=== PATIENT | female | born 1940 | race Caucasian/White ===

== ENCOUNTER 2017-05-18 16:53 | Emergency (ER) | payer MEDICARE, MEDICAID ==
[2017-05-18 17:06] VITALS: BP 122/87
--- NOTE | 2017-05-18 19:26 | RAD ---
Indication: RIGHT ankle pain with inversion and eversion without proceeding injury. Pain in the distal tibia with weightbearing for 2 days. Comparison: No relevant prior exams available on the [facility] PACS for comparison. Technique: AP, mortise, and lateral views RIGHT ankle. Report: Negative for fracture or malalignment. Subchondral cystic change at the head of the talus at the talonavicular articulation. Small plantar fascia origin bone spur. Nonfocal soft tissue swelling about the visualized lower leg, ankle, and foot. IMPRESSION: 1. Negative for fracture or malalignment. 2. Advanced arthropathy at the talonavicular articulation. 3. Nonspecific nonfocal soft tissue swelling.
--- NOTE | 2017-05-18 22:46 | UC ---
Lower Extremity/Ankle HPI - HPI Summary HPI Summary: 1) SEVERAL WEEKS OF RIGHT ANKLE/FOOT PAIN NO KNOWN TRAUMA. PAIN ONLY WITH INVERSION OF ANKLE. 2) HISTORY OF GOUT, GETS OCCASIONAL GOUT FLARE UP IN TOES AND WOULD LIKE TO KNOW IF THERE ARE ANY REMEDIES THAT DO NOT INVOLVE NSAIDS. - History of Current Complaint Chief Complaint: UCLowerExtremity Stated Complaint: ANKLE PAIN Time Seen by Provider: 05/18/17 18:46 Hx Obtained From: Patient Onset/Duration: Gradual Onset, Lasting Days, Still Present Severity Initially: Moderate Severity Currently: Moderate Pain Intensity: 12 Pain Scale Used: 0-10 Numeric Aggravating Factor(s): Standing, Ambulation Alleviating Factor(s): Rest, Elevation Able to Bear Weight: Yes - Risk Factors Gout Risk Factors: Age Over 40 DVT Risk Factors: Negative Septic Arthritis Risk Factor: Negative - Allergies/Home Medications Allergies/Adverse Reactions: Allergies Allergy/AdvReac Type Severity Reaction Status Date / Time Latex Allergy Rash Verified 02/15/15 17:24 Metronidazole [From Flagyl] Allergy Nausea Verified 02/15/15 17:24 Quinine Allergy Nausea Verified 02/15/15 17:24 Sulfa Antibiotics Allergy Unknown Verified 07/16/16 12:57 Reaction Details PMH/Surg Hx/FS Hx/Imm Hx Previously Healthy: Yes - Surgical History Surgical History: Yes Surgery Procedure, Year, and Place: [id number] or 1999. Cyst removed Left breast, cholecystectomy, abdominal hernia repair. T&A - Family History Known Family History: Positive: Hypertension Negative: Cardiac Disease, Diabetes - Social History Occupation: Retired Lives: With Family Alcohol Use: None Substance Use Type: None Smoking Status (MU): Never Smoked Tobacco - Immunization History Most Recent Influenza Vaccination: 2016 Most Recent Tetanus Shot: unknown Most Recent Pneumonia Vaccination: 2013 Review of Systems Constitutional: Negative Skin: Negative Eyes: Negative ENT: Negative Respiratory: Negative Cardiovascular: Negative Gastrointestinal: Negative Genitourinary: Negative Motor: Negative Neurovascular: Negative Musculoskeletal: Arthralgia, Myalgia Neurological: Negative Psychological: Negative All Other Systems Reviewed And Are Negative: Yes Physical Exam Triage Information Reviewed: Yes Appearance: Well-Appearing, No Pain Distress, Well-Nourished Vital Signs: Initial Vital Signs Temp 98 F 05/18/17 17:03 Pulse 99 05/18/17 17:03 Resp 20 05/18/17 17:03 BP 122/87 05/18/17 17:03 Pulse Ox 100 05/18/17 17:03 Vital Signs Reviewed: Yes Eye Exam: Normal ENT Exam: Normal ENT: Positive: Normal ENT inspection, Hearing grossly normal, TMs normal Dental Exam: Normal Neck exam: Normal Neck: Positive: Supple, Nontender, No Lymphadenopathy Respiratory Exam: Normal Respiratory: Positive: Chest non-tender, Lungs clear, Normal breath sounds, No respiratory distress, No accessory muscle use Cardiovascular Exam: Normal Cardiovascular: Positive: RRR, No Murmur, Pulses Normal Abdominal Exam: Normal Musculoskeletal Exam: Other - NO WARMTH OR TENDERNESS PRESENTLY TO LEFT TOES Musculoskeletal: Positive: Strength Intact, ROM Intact, No Edema, Other: - PAIN IN RIGHT LATRERAL AND MEDIAL FOOT; Neurological Exam: Normal Psychological Exam: Normal Skin Exam: Normal Lower Extremity Course/Dx - Differential Dx/Diagnosis Differential Diagnosis/HQI/PQRI: Fracture (Closed), Sprain, Strain Provider Diagnoses: RIGHT ANKLE ADVANCED ARTHROPATHY TALONAVICULAR JOINT; GOUT Discharge - Discharge Plan Condition: Stable Disposition: HOME Patient Education Materials: Osteoarthritis (ED), Gout (ED), Swollen Ankle Joint (ED) Referrals: Octavio Mckeon MD [Primary Care Provider] - Dg Villavicencio MD [Medical Doctor] -
== END 2017-05-18 20:18 | disposition home or self-care (01) ==
LOC: UCEAST 16:53
DX: M13.871 Other specified arthritis, right ankle and foot (principal); M10.9 Gout, unspecified; Z88.3 Allergy status to other anti-infective agents; Z91.040 Latex allergy status
CPT/HCPCS: 99213; G0463

== ENCOUNTER 2018-02-22 20:41 | Emergency (ER) | payer MEDICARE, MEDICAID ==
[2018-02-22 20:53] VITALS: BP 144/90
--- NOTE | 2018-02-22 21:31 | UC ---
Eye Complaint HPI - HPI Summary HPI Summary: 77 yo female with itchy eyes now left eye red no pain no visual changes had right nare bloody nose 2 days ago no bruising - History of Current Complaint Chief Complaint: UCEye Stated Complaint: EYE IRRITATION Time Seen by Provider: 02/22/18 21:17 Hx Obtained From: Patient Onset/Duration: Gradual Onset, Lasting Hours Timing: Constant Severity Initially: Mild Severity Currently: Mild Pain Intensity: 1 Pain Scale Used: 0-10 Numeric Location of Injury: Conjunctiva Alleviating Factor(s): Nothing Associated Signs And Symptoms: Positive: Negative - Allergies/Home Medications Allergies/Adverse Reactions: Allergies Allergy/AdvReac Type Severity Reaction Status Date / Time Sulfa (Sulfonamide Allergy Unknown Unknown Verified 02/22/18 20:55 Antibiotics) Reaction Details latex Allergy Rash Verified 02/22/18 20:55 metronidazole [From Flagyl] Allergy Nausea Verified 02/22/18 20:55 quinine Allergy Rash Verified 02/22/18 20:55 Home Medications: Home Medications traMADol TAB* [Ultram*] PRN 02/22/18 [History] PMH/Surg Hx/FS Hx/Imm Hx Previously Healthy: Yes - Surgical History Surgical History: Yes Surgery Procedure, Year, and Place: [id number] or 1999. Cyst removed Left breast, cholecystectomy, abdominal hernia repair. T&A, LARGE INTESTINE REMOVED - Family History Known Family History: Positive: Hypertension Negative: Cardiac Disease, Diabetes - Social History Alcohol Use: None Substance Use Type: None Smoking Status (MU): Never Smoked Tobacco - Immunization History Most Recent Influenza Vaccination: 2016 Most Recent Tetanus Shot: unknown Most Recent Pneumonia Vaccination: 2014 Review of Systems Constitutional: Negative Skin: Negative Eyes: Eye Redness ENT: Negative Respiratory: Negative Cardiovascular: Negative Gastrointestinal: Negative Genitourinary: Negative Motor: Negative Neurovascular: Negative Musculoskeletal: Negative Neurological: Negative Psychological: Negative Is Patient Immunocompromised?: No All Other Systems Reviewed And Are Negative: Yes Physical Exam Triage Information Reviewed: Yes Appearance: Well-Appearing, No Pain Distress, Well-Nourished Vital Signs: Initial Vital Signs Temp 98.2 F 02/22/18 20:47 Pulse 90 02/22/18 20:47 Resp 16 02/22/18 20:47 BP 144/90 02/22/18 20:47 Pulse Ox 99 02/22/18 20:47 Vital Signs Reviewed: Yes Eyes: Positive: Other: - 100% left subconjunctival hemorrhage eomi/perrl, fundi benign ENT: Negative: Nasal congestion, Nasal drainage, Trismus, Muffled voice, Hoarse voice Neck: Positive: Supple Respiratory: Positive: Lungs clear, Normal breath sounds, No respiratory distress, No accessory muscle use Cardiovascular: Positive: RRR, No Murmur Musculoskeletal: Positive: ROM Intact, No Edema Neurological: Positive: Alert Psychological Exam: Normal Skin Exam: Normal Eye Complaint Course/Dx - Differential Dx/Diagnosis Provider Diagnoses: left subconjunctival hemorrhage Discharge - Sign-Out/Discharge Documenting (check all that apply): Discharge/Admit/Transfer - Discharge Plan Condition: Stable Disposition: HOME Patient Education Materials: Subconjunctival Hemorrhage (ED) Referrals: Andres Bess MD [Medical Doctor] - As Soon As Possible Additional Instructions: Because you have had itchy eyes I think this is due to you rubbing them We are checking a blood count to make sure your platelet count is OK I suggest you see an eyelet row marker for re evaluation - Billing Disposition and Condition Condition: STABLE Disposition: HOME
[2018-02-23 11:09] LABS: Hematocrit 37 % (35-47); Hemoglobin 12.3 g/dl (12.0-16.0); Mean Corpuscular HGB Conc 34 g/dl (31-36); Mean Corpuscular Hemoglobin 31 pg (27-31); Mean Corpuscular Volume 91 fL (80-97); Mean Platelet Volume 8.1 um3 (7.4-10.4); Platelet Count 337 10^3/ul (150-450); Red Blood Count 4.02 10^6/ul (4.0-5.4); Red Cell Distribution Width 13 % (10.5-15); White Blood Count 12.3 10^3/ul (3.5-10.8)
[2018-02-23 11:28] LABS: ABS Basophils 0.1 10^3/ul (0-0.2); ABS Eosinophils 0.2 10^3/ul (0-0.6); ABS Lymphocytes 2.3 10^3/ul (1.0-4.8); ABS Monocytes 0.5 10^3/ul (0-0.8); ABS Neutrophils 9.2 10^3/ul (1.5-7.7); ABS Nucleated RBC 0 10^3/ul; Eosinophil % 1.9 % (0-6); Lymphocyte % 18.9 % (25-47); Nucleated Red Blood Cells % 0
--- NOTE | 2018-02-23 15:42 | UC ---
- Progress Note Progress Note: please notify patient her platelet count is normal which what I was checking her white count was minimally elevated and should be rechecked at some point with her MD ( a couple of weeks) Discharge - Sign-Out/Discharge Documenting (check all that apply): Post-Discharge Follow Up - Discharge Plan Condition: Stable Disposition: HOME Patient Education Materials: Subconjunctival Hemorrhage (ED) Referrals: Andres Bess MD [Medical Doctor] - As Soon As Possible Additional Instructions: Because you have had itchy eyes I think this is due to you rubbing them We are checking a blood count to make sure your platelet count is OK I suggest you see an computer systems support specialist for re evaluation - Billing Disposition and Condition Condition: STABLE Disposition: HOME
== END 2018-02-22 21:42 | disposition home or self-care (01) ==
LOC: UCEAST 20:41
DX: H11.32 Conjunctival hemorrhage, left eye (principal); Z88.2 Allergy status to sulfonamides; Z88.1 Allergy status to other antibiotic agents; Z91.040 Latex allergy status
CPT/HCPCS: 36415; 85025; 99212; G0463

== ENCOUNTER 2018-08-03 08:48 | Day surgery (SDC) | payer MEDICARE, MEDICAID ==
--- NOTE | 2018-07-29 22:30 | HP ---
HISTORY AND PHYSICAL: DATE OF ADMISSION: 08/03/18 ATTENDING PHYSICIAN: Dr. Bronson.* (DICTATED BY JOSEPH MENJIVAR) PROCEDURE: The patient is scheduled for surgery on 08/03/18 where she will undergo left brachiobasilic fistula first stage to be done by Dr. Bronson at [facility] for end-stage renal disease. HISTORY OF PRESENT ILLNESS: The patient was first evaluated in June 2018. She is a 77-year-old female referred by Dr. Gu for stage 4 renal insufficiency for the evaluation of an arteriovenous fistula anticipating that she will need hemodialysis in the near future. The patient's past medical history is significant for Crohn's disease. She is status post multiple surgical procedures for resection of her bowel between 1996 and 1999. She later went onto have a permanent ileostomy and this was done by Dr. Rogel at [facility], probably the last surgery being in the year 1999. Due to her Crohn's disease, the patient had multiple episodes of being ill, becoming dehydrated and this was felt to be a factor in her renal disease. It is anticipated that she will require hemodialysis within the next few months. It should be noted as a factor that she is allergic to LATEX as well as DEMEROL. She does take pain medicine on a regular basis tramadol for an arthritic joint and oxycodone, but only takes this may be twice a week due to bladder spasms and a cyst. Physical exam in June when she was evaluated here, the extremities revealed strong axillary, brachial and radial pulses. Her cephalic veins are weak, small superficial, very friable most of them. The veins in the forearm did not appear to be adequate. An ultrasound was done at that same appointment. The scan revealed the basilic vein on the right is present on the left side. The cephalic vein is absent. The basilic vein measures 4.8 mm in the upper arm and 5.2 in the distal toward the arm. The patient has excellent flow in the brachial artery. So, the recommendation is the patient will be best served with an AV fistula, but to do this it is recommended that this will need to be done in a 2-stage approach. The surgery first on 08/03/18 would be scheduled as a left brachiobasilic fistula first stage where there is a transposition of the basilic vein and then at a second stage the basilic vein and brachial artery would be joined as an AV fistula in a separate operation at a later date. This would be the optimal plan for her surgery. A [place]-Demetris graft would be the alternative, but the long-term results for the AV fistula would be best if we are able to not use the [place]-Demetris. The patient understands the concerns, the reason for doing this 2-stage approach and wishes to proceed with the surgery as planned. PAST MEDICAL HISTORY: Significant for Crohn's disease. She is status post multiple bowel resections finally with an ileostomy done back in 1999. She had multiple episodes of dehydration due to the Crohn's and multiple illnesses. She does have a bladder cyst and has bladder spasm that she takes pain medicine for. She has chronic end-stage renal disease as a result of they feel is repeat episodes of dehydration. She does have arthritis specifically in her right ankle. She did have an episode of vertigo 2 years ago, has not had a recurrence of that. She has no history of cancer, no history of hypertension, diabetes. PAST SURGICAL HISTORY: Past surgeries include bowel resections and finally ileostomy, 1996 through 1999. She is status post hernia surgery x2, 1 hernia surgery was february be in [address] Valentin here at [facility] and then a later hernia repair in 2013 in [place]. She has had her gallbladder removed, appendix. She had a left breast cyst that was found to be benign. She had tonsils and adenoids removed, tubal ligation. MEDICATIONS: Medications that she is on: 1. Both p.r.n., she takes oxycodone 5/325. She probably uses this 2 times a week for abdominal discomfort and bladder spasm. 2. She takes tramadol only p.r.n. for ankle discomfort and since using a supplement she has not required the tramadol for some period of time. 3. The supplement that she is taking is tart eddy capsules once a day as an alternate to the tramadol. ALLERGIES: She is allergic to LATEX, DEMEROL, FLAGYL, and QUININE. SOCIAL HISTORY: The patient is retried. She is a and was . She has 2 children, a daughter and a son. Her daughter lives locally. She has no history of cigarette use. She did have heavy alcohol use back in 1999, but has not used any since. REVIEW OF SYSTEMS: Negative. She has been healthy. She has not been ill recently. PHYSICAL EXAMINATION VITAL SIGNS: Today, she is 62.5 inches, she weighs 133 pounds. Her blood pressure is 132/82, pulse is 82. HEENT: Within normal limits. NECK: Supple. There is no JVD or carotid bruits. Her thyroid was felt to be normal. LUNGS: Clear throughout. HEART: Regular rhythm without a murmur heard. ABDOMEN: She has an ileostomy in place. Her abdomen is soft. She has no tenderness. EXTREMITIES: Full range of motion without limitation. She is nonfocal and neurologically intact. She has only trace edema. IMPRESSION: The patient with renal insufficiency and stage 4 renal disease, admitted this time for placement of an AV fistula for hemodialysis in the future. Due to the patient's weak veins in her upper extremities, this will be done in a 2- part surgical approach and so on 08/03/18, the patient is scheduled for left brachiobasilic fistula first stage of a 2-part stage to be done by Dr. Bronson. The patient is allergic to LATEX and is also allergic to DEMEROL. JOSEPH MENJIVAR [id number]/[facility] #: [id number] ARIEL
[~2018-08-03 08:48] MED LIST: Buffered Lidocaine 0.9% SYRIN* 5 ML/SYR SYRINGE INTRADERM ONE; Famotidine IV* 10 MG/ML 2 ML (20 mg) IV ONE
[2018-08-03] MEDS ORDERED: Famotidine IV* 10 MG/ML 2 ML (20 mg) ONE (09:12)
[2018-08-03] MEDS ORDERED: ceFAZolin 2 GM in NS PREMIX(*) 2 GM/100 ML BAG IVPB ONE (09:13)
[2018-08-03] MEDS ORDERED: Midazolam* 1 MG/ML 2 ML VIAL (2 MG) ONE (10:04)
[2018-08-03] MEDS ORDERED: fentaNYL* 50 MCG/ML 2 ML VIAL (100 MCG VIAL) ONE (10:05)
[2018-08-03] MEDS ORDERED: Propofol* 10 MG/ML 20 ML BTL IV PUSH ONE (10:10)
[2018-08-03] MEDS ORDERED: Lidocaine 2% PF * 5 ML VIAL ONE (10:10)
[2018-08-03] MEDS ORDERED: Heparin DIALYSIS ONLY(*) 1,000 UNITS/ML VIAL ONE ×2 (10:37→12:30)
[2018-08-03] MEDS ORDERED: Lidocaine 1% INJ* 10 MG/ML 30 ML SDV ONE (10:38)
[2018-08-03] MEDS ORDERED: Heparin 2 UNITS/ML IVPREMIX* 1,000 ML IV ONE (10:40)
[2018-08-03] MEDS ORDERED: Mepivacaine 2% MPF (20 MG/ML)* 20 ML MPF ONE (10:55)
[2018-08-03] MEDS ORDERED: ROPIVACAINE 5 MG/ML 30 ML BTL (0.5%) ONE (10:56)
[2018-08-03] MEDS ORDERED: Lidocaine 2% PF* 10 ML AMP ONE (11:29)
[2018-08-03] MEDS ORDERED: Propofol* 500 MG/50 ML BTL ONE (11:32)
[2018-08-03] MEDS ORDERED: Phenylephrine INJ* 10 MG/ML 1 ML VIAL (10 MG) ONE (11:55)
[2018-08-03] MEDS ORDERED: Ondansetron ODT TAB* 4 MG PO PRN (12:04)
[2018-08-03] MEDS ORDERED: Naloxone* 0.4 MG/ML 1 ML VIAL IV PRN (12:04)
[2018-08-03] MEDS ORDERED: fentaNYL* 50 MCG/ML 2 ML VIAL (100 MCG VIAL) IV PRN (12:04)
[2018-08-03] MEDS ORDERED: Acetaminophen TAB* 325 MG PO PRN (12:04)
[2018-08-03] MEDS ORDERED: Ondansetron ODT TAB* 4 MG ONE (14:00)
[2018-08-03 14:36] VITALS: BP 114/74
--- NOTE | 2018-08-04 06:07 | OP ---
DATE OF OPERATION: 08/03/18 - [facility] DATE OF : 44 SURGEON: Aubrey Bronson MD CREDIT REVIEW ANALYST: Marianne Gu NP ANESTHESIA: Axillary supraclavicular block, plus MAC. PRE-OP DIAGNOSIS: End-stage renal disease. POST-OP DIAGNOSIS: End-stage renal disease. OPERATIVE PROCEDURE: Left arm loop brachial graft with tapered [place] Propaten __ ___ 7 mm. ESTIMATED BLOOD LOSS: Less than 20 cc. DESCRIPTION OF PROCEDURE: The patient was taken to the operating room, she was placed in the supine position and she was prepped and draped in the usual sterile fashion. Proper identification of the patient and site was done. The planned surgery was to do a first stage transposition of the basilic vein provided the vein was adequate. The preoperative ultrasound showed the length of the brachial vein to be of a short distance and not ideal for a transposition. Therefore, the procedure was then planned to be a looped graft with [place] tapered. After this was done under sedation, lidocaine 1% was just infiltrated on the antecubital area and incision was made transversely which was extended down through the skin and subcutaneous tissue. Bleeders were controlled by electrocoagulation and after this was completed, a dissection was carried into the antecubital fossa. The brachial artery was identified and encircled in the Vesseloops. The junction between the interconnecting vein between the basilic and the cephalic vein was exposed; it appeared to be of adequate size over 3 mm. This was then encircled in Vesseloops, proximally and distally, and once this was completed, we then proceeded to perform a loop tunnel in the anterior aspect of the right arm introducing the tunnel from the medial side to more distal. A counterincision was made and then the venous side was then pulled from the incision distal to the incision more proximal creating a full loop around. The graft was laid easy next to the vein and the taper segment towards the artery. After this was completed, the patient received 2500 units of heparin and after this was completed, we then proceeded to cross clamp the antecubital vein and a venotomy was then performed. The [place] -Demetris was then cut in an oblique shape and after this was done, an end-to-side anastomosis was done using a 7-0 Prolene in a parachute technique and after this was completed, the Vesseloops were released and heparinized saline was administered via the graft with a [place] tree. The graft was then cross clamped. There was good flow into the vein and after this was completed, we then proceeded to perform the arterial anastomosis. A complete at the 4- mm opening of the graft was then laid easily next to the brachial artery. The artery was cross clamped proximally and distally. An arteriotomy was performed which was extended with Szymanski scissors and we then proceeded to perform the anastomosis between the graft and the artery using 7-0 Prolene in a continuous fashion and once this was completed, we then opened up the venous clamp, opened up the distal arterial cross clamping. Flow was noticed to go into the graft and then finally the arterial clamp proximally was released. There was good flow into the graft and good flow into the vein. This was interrogated with a Doppler which appeared to be working well. There was excellent radial artery signal and good capillary refill of the hand. After this was completed, the areas were checked for hemostasis, no bleeding was noted. The incision was then closed with interrupted 4-0 Vicryl suture for the subcutaneous tissue and the skin was closed with a subcuticular 5-0 Monocryl. The patient tolerated the procedure well and the patient was then taken in good condition to the recovery room. [id number]/[facility] #: [id number] ARIEL
== END 2018-08-03 15:07 | disposition home or self-care (01) ==
LOC: OR 08:48
PROVIDERS: ATTEND Surgery
DX: N18.6 End stage renal disease (principal); K50.90 Crohn's disease, unspecified, without complications; G89.18 Other acute postprocedural pain; Z90.49 Acquired absence of other specified parts of digestive tract; B02.9 Zoster without complications
CPT/HCPCS: A9270-GY; C1768; J0670; J0690; J1644; J2001; J2250; J2704; J2795; J3010

== ENCOUNTER 2019-04-13 13:50 | Observation (INO) | payer MEDICARE, MEDICAID ==
[2019-04-13] MEDS ORDERED: NS 0.9% 1000 ML** 1,000 ML IV SCH ×2 (14:45→16:15)
--- NOTE | 2019-04-13 14:56 | ED ---
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 She was seen for acute renal failure and was light headed, dizzy, her urine was dark, she had trouble with oral fluids retention and keeping up with her output. Her Lactic Acid was 2.4 upon transfer. During our evaluation she stated that she was working with her sister and did not eat or drink as much as she usually does and has been unable to retain fluid since. She denies any sore throat, previous cold, cough, CP, and new swelling in her LE. She stated that she has SOB on exertion and when her nose is congested. She also reports that her urine was dark this morning. 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 - History of Current Complaint Chief Complaint: EDGeneral Time Seen by Provider: 04/13/19 14:13 Stated Complaint: DEHYDRATION PER [facility] Hx Obtained From: Patient, Medical Records - From [facility] ED Onset/Duration: Started Weeks Ago - 1, Still Present Timing: Constant Pain Intensity: 0 Associated Signs and Symptoms: Positive: Negative - sore throat, previous cold, cough, CP, and new swelling in her LE., Dizziness, Lightheadedness, Other: - POSITIVE: her urine was dark, she had trouble with oral fluids retention and keeping up with her output, SOB on exertion, Nasal congestion, dark urine - Allergy/Home Medications Allergies/Adverse Reactions: Allergies Allergy/AdvReac Type Severity Reaction Status Date / Time latex Allergy Rash Verified 08/03/18 09:25 meperidine [From Demerol] Allergy Vomiting Verified 08/03/18 09:26 Sulfa (Sulfonamide AdvReac Mild Nausea Verified 08/03/18 09:25 Antibiotics) metronidazole [From Flagyl] AdvReac Nausea Verified 08/03/18 09:25 quinine AdvReac Nausea And Verified 08/03/18 09:25 Vomiting Home Medications: Home Medications oxyCODONE/Acetamin 5/325 MG* [Percocet 5/325 TAB*] 1 tab PO Q6H PRN 04/13/19 [ History Confirmed 04/13/19] PMH/Surg Hx/FS Hx/Imm Hx Previously Healthy: No Endocrine/Hematology History: Reports: Hx Anemia - takes iron Cardiovascular History: Denies: Hx Pacemaker/ICD Respiratory History: Denies: Other Respiratory Problems/Disorders GI History: Reports: Hx Crohn's Disease, Hx Irritable Bowel, Hx Ileostomy - iliostomy, Other GI Disorders - ileostomy on left side currently, colon resection x3 History: Reports: Hx Chronic Renal Failure, Hx Kidney Infection, Other Problems/Disorders - hx UTI's Musculoskeletal History: Reports: Hx Arthritis - bilateral hands, right ankle Sensory History: Reports: Hx Cataracts - bilateral, no surgery yet, Hx Contacts or Glasses - glasses Denies: Hx Hearing Aid Opthamlomology History: Reports: Hx Cataracts - bilateral, no surgery yet, Hx Contacts or Glasses - glasses Neurological History: Reports: Other Neuro Impairments/Disorders - hx vertigo - evaluated by dr james Psychiatric History: Denies: Hx Panic Disorder - Surgical History Surgery Procedure, Year, and Place: [id number] or 1999. Cyst removed Left breast, cholecystectomy, abdominal hernia repair. T&A, LARGE INTESTINE REMOVED Hx Anesthesia Reactions: No Infectious Disease History: No Infectious Disease History: Denies: Hx Clostridium Difficile, Hx Hepatitis, Hx Human Immunodeficiency Virus (HIV), Hx of Known/Suspected MRSA, Hx Shingles, Hx Tuberculosis, Hx Known/ Suspected VRE, Hx Known/Suspected VRSA, History Other Infectious Disease, Traveled Outside the [place] in Last 30 Days - Family History Known Family History: Positive: Hypertension Negative: Cardiac Disease, Diabetes - Social History Alcohol Use: None Alcohol Amount: hx alcoholism - reports last drink 2014 Hx Substance Use: No Substance Use Type: Reports: None Hx Tobacco Use: No Smoking Status (MU): Never Smoked Tobacco Review of Systems Positive: Other - NEGATIVE: Previous cold Positive: Other - nasal congestion. Negative: Sore Throat Negative: Chest Pain Positive: Shortness Of Breath - exertion, due to nasal congestion. Negative: Cough Positive: other - POSITIVE: dark urine, she had trouble with oral fluids retention and keeping up with her output Musculoskeletal: Negative - New swelling in LE Positive: Other Neurological: Other - POSITIVE: dizziness All Other Systems Reviewed And Are Negative: Yes Physical Exam - Summary Physical Exam Summary: Constitutional: Well-developed, Well-nourished, Alert. (-) Distressed Skin: Warm, Dry, extremities are non-erythematous HENT: Normocephalic; Atraumatic, nasal congestion Eyes: Conjunctiva normal Neck: Musculoskeletal ROM normal neck. (-) JVD, (-) Stridor, (-) Tracheal deviation Cardio: Rhythm regular, rate normal, Heart sounds normal; Intact distal pulses; The pedal pulses are 2+ and symmetric. Radial pulses are 2+ and symmetric. (-) Murmur Pulmonary/Chest wall: Effort normal. (-) Respiratory distress, (-) Wheezes, (-) Rales Abd: Soft, (-) tenderness, (-) Distension, (-) Guarding, (-) Rebound, Ileostomy bag in her L lower quadrant Musculoskeletal: (-) Edema, L arm fistula with a palpable pulse and a good bruit. Lymph: (-) Cervical adenopathy Neuro: Alert, Oriented x3 Psych: Mood and affect Normal Triage Information Reviewed: Yes Vital Signs On Initial Exam: Initial Vitals Temp Pulse Resp BP Pulse Ox 98.4 F 81 18 175/121 98 04/13/19 14:02 04/13/19 14:02 04/13/19 14:02 04/13/19 14:02 04/13/19 14:02 Vital Signs Reviewed: Yes Diagnostics - Vital Signs Vital Signs Temp Pulse Resp BP Pulse Ox 04/13/19 14:02 98.4 F 81 18 175/121 98 - Laboratory Result Diagrams: 04/13/19 14:49 04/13/19 14:49 Lab Statement: Any lab studies that have been ordered have been reviewed, and results considered in the medical decision making process. 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 She was seen for acute renal failure and was light headed, dizzy, her urine was dark, she had trouble with oral fluids retention and keeping up with her output. Her Lactic Acid was 2.4 upon transfer. Upon her PE the pt was found to have nasal congestion, an ileostomy bag in her left lower quadrant, she was non-tender in her abdominal region, L arm fistula with a palpable pulse and a good bruit, and her extremities were non-erythematous. She had labs conducted at [facility]'s ED and they found that her Lactic Acid was 2.4. She was also found to be dehydrated and will be admitted to [facility] per Dr. Maguire and Dr. Hampton. Pt will be admitted per Dr. Wetzel at 1430 and be under observation. Per Dr. Hampton the pt will be under observation and under rehydration therapy. If her renal condition does not improve she will be considered for dialysis tomorrow. She will be Dx with Acute renal failure, dehydration, uri, and lactic acidosis. - Diagnoses Provider Diagnoses: Acute renal failure, URI (upper respiratory infection), Lactic acidosis, Dehydration Discharge - Sign-Out/Discharge Documenting (check all that apply): Patient Departure - admitted Patient Received Moderate/Deep Sedation with Procedure: No - Discharge Plan Condition: Stable Disposition: ADMITTED TO [facility] - Billing Disposition and Condition Condition: STABLE Disposition: Admitted to [facility] - Attestation Statements Document Initiated by Sara: Yes Documenting Scribe: Ambrocio Alcantara Provider For Whom Scribe is Documenting (Include Credential): Maria Esther Turner MD Scribe Attestation: IAmbrocio, scribed for Maria Esther Royal MD on 04/13/19 at 2154. Scribe Documentation Reviewed: Yes Provider Attestation: The documentation as recorded by the Ambrocio valdes accurately reflects the service I personally performed and the decisions made by Maria Esther hardin MD Status of Scribe Document: Viewed Consult Consult: Pt will be admitted per Dr. Wetzel at 1430 and be under observation. Per Dr. Hampton the pt will be under observation and under rehydration therapy. If her renal condition does not improve she will be considered for dialysis tomorrow.
[2019-04-13 14:59] LABS: ABS Basophils 0.1 10^3/ul (0-0.2); ABS Eosinophils 0.1 10^3/ul (0-0.6); ABS Lymphocytes 1.9 10^3/ul (1.0-4.8); ABS Monocytes 0.5 10^3/ul (0-0.8); ABS Neutrophils 5.2 10^3/ul (1.5-7.7); Eosinophil % 1.9 %; Hematocrit 33 % (35-47); Hemoglobin 11.1 g/dL (12.0-16.0); Lymphocyte % 23.9 %; Mean Corpuscular HGB Conc 34 g/dL (31-36); Mean Corpuscular Hemoglobin 30 pg (27-31); Mean Corpuscular Volume 90 fL (80-97); Mean Platelet Volume 7.2 fL (7.4-10.4); Platelet Count 278 10^3/uL (150-450); Red Blood Count 3.67 10^6 /uL (3.70-4.87); Red Cell Distribution Width 14 % (10-15); White Blood Count 7.8 10^3/uL (3.5-10.8)
[2019-04-13 15:19] LABS: BUN/Creatinine Ratio 13.4 (8-20); C Reactive Protein 7.07 mg/L (<8.01); Calcium 7.7 mg/dL (8.6-10.3); EGFR African American 14.3 (>60); EGFR Non-African American 11.8 (>60); Potassium 4.2 mmol/L (3.5-5.0)
--- OUTSIDE RECORDS SUMMARY | 2019-04-13 15:19 | XMS REPORT | Continuity of Care Document ---
:1940 External Reference #:[id number] Author Name Lisa Pettit Care Team Providers Name Role Phone Octavio Mckeon MD Primary Care Physician Unavailable Payers Date Identification Numbers Payment Provider Subscriber Policy Number: [id number] [facility] [employer] Yue Chaves PayID: [id number] [address] [address] [place] [address] Policy Number: [id number] Medicaid Yue Chaves Group Name: 1 1 [address] PayID: [id number] [place] [address] Problems Active Problems Provider Date Closed fracture of distal end of radius Eliane Merino M.D. Onset: 01/14/2019 Family History Date Family Member(s) Observation Comments General No Current Problems Social History Type Date Description Comments Sex Unknown Lives With Daughter Occupation Unemployed ETOH Use Denies alcohol use Tobacco Use Start: Unknown Patient has never smoked Smoking Status Reviewed: 04/12/19 Patient has never smoked Exercise Type/Frequency Exercises sporadically Allergies, Adverse Reactions, Alerts Active Allergies Reaction Severity Comments Date Demerol 01/14/2019 Quinine 01/14/2019 Medications Active Medications SIG Qnty Indications Ordering Provider Date Magnesium 27 1 by mouth per Unknown 500(27Mg) mg day Tablets Tart Fish Advanced daily Unknown Capsules Vital Signs Date Vital Result Comment 04/12/2019 11:33am Height 62 inches 5'2" Weight 136.00 lb Heart Rate 88 /min BP Systolic 142 mmHg BP Diastolic 86 mmHg Pain Level 0 BMI (Body Mass Index) 24.9 kg/m2 03/11/2019 2:41pm Height 62 inches 5'2" Weight 133.00 lb Heart Rate 84 /min BP Systolic 156 mmHg BP Diastolic 78 mmHg Respiratory Rate 18 /min Pain Level 1 BMI (Body Mass Index) 24.3 kg/m2 02/25/2019 2:42pm Height 62 inches 5'2" Weight 133.00 lb Heart Rate 72 /min BP Systolic 110 mmHg BP Diastolic 70 mmHg Respiratory Rate 12 /min Pain Level 0 BMI (Body Mass Index) 24.3 kg/m2 02/11/2019 4:10pm Height 62.5 inches 5'2.50" Weight 134.00 lb Heart Rate 96 /min BP Systolic 134 mmHg BP Diastolic 64 mmHg Respiratory Rate 18 /min Pain Level 0 BMI (Body Mass Index) 24.1 kg/m2 01/28/2019 3:56pm Height 62.5 inches 5'2.50" Weight 133.00 lb BP Systolic 130 mmHg BP Diastolic 78 mmHg Pain Level 0 BMI (Body Mass Index) 23.9 kg/m2 01/14/2019 10:57am Height 62.5 inches 5'2.50" Weight 133.50 lb Heart Rate 98 /min BP Systolic 108 mmHg BP Diastolic 70 mmHg Respiratory Rate 18 /min Body Temperature 98.0 F Pain Level 3 BMI (Body Mass Index) 24.0 kg/m2 Results Test Date Facility Test Result H/L Range Note Xray 03/11/2019 [facility] Wrist Left 3+ VWS <pending> [address] [place] [address] [phone] Procedures Date Code Description Status 02/25/2019 66382 Short Arm Cast Application Completed 02/11/2019 91069 Short Arm Cast Application Completed 01/28/2019 32961 Short Arm Cast Application Completed 01/14/2019 73653 Short Arm Cast Application Completed 07/28/2018 52810 EKG, Interpretation Only Completed 02/16/2015 99752 ECHO Transthorasic Realtime 2D W Doppler & Color Flow Hosp Completed Encounters Type Date Location Provider Dx Diagnosis Office Visit 03/11/2019 [facility] El[facility] Merino, M25.532 Pain in left 2:[facility] M.D. wrist S52.502D Unsp fx the low end left rad, subs for clos fx w routn heal Office Visit 02/25/2019 2:15p [facility] El[facility] Merino M25.532 Pain in [facility] M.[facility] wrist S52.502D Unsp fx the low end left rad, subs for clos fx w routn heal Office Visit 02/11/2019 3:15p [facility], M25.532 Pain in [facility] M.D. wrist S52.502D Unsp fx the low end left rad, subs for clos fx w routn heal Office Visit 01/28/2019 3:30p [facility], M25.532 Pain in left [facility] M.D. wrist S52.502D Unsp fx the low end left rad, subs for clos fx w routn heal Office Visit 01/14/2019 10:15a [facility], M25.532 Pain in left [facility] M.D. wrist S52.502A Unsp fracture of the lower end of left radius, init Office Visit 02/17/2015 9:43a [facility] Gavin 555.9 Enteritis Assoc,michelle Nash M.D. Unspec Site Hospitalists 780.4 Dizziness & Giddiness 787.01 Nausea W/ Vomiting 780.79 Malaise And Fatigue Other Office 02/16/2015 [facility] Nany 386.30 Labyrinthitis Visit 10:00a Oswaldo Sanchez M.D. Unspec Office 02/16/2015 [facility] Gavin 555.9 Enteritis Unspec Visit 9:43a Assoc, Henrique Wade M.D. 787.01 Nausea W/ Vomiting 780.4 Dizziness & Giddiness 780.79 Malaise And Fatigue Other Office Visit 02/15/2015 Neurohospitalist Nany Sanchez, 780.4 Dizziness & 9:58a [facility] Jessie Giddiness 787.01 Nausea W/ Vomiting Office Visit 02/15/2015 9:42a [facility] Martha Antony 555.9 Enteritis Unspec Assoc,[facility] Hospitalists 787.01 Nausea W/ Vomiting 780.4 Dizziness & Giddiness 780.79 Malaise And Fatigue Other Plan of Treatment Future Appointment(s):04/18/2019 2:15 pm - Eliane Merino M.D. at [facility]04/12/2019 - Ulysses Dumont MDM25.532 Pain in left wristNew Xrays:Wrist Left 3+ VWS, Ordered: 04/12/19Follow up:Follow up: with Dr. Merino as scheduled in April 2019
[2019-04-13] MEDS ORDERED: Acetaminophen TAB* 325 MG PO PRN (16:10)
--- NOTE | 2019-04-13 17:26 | HP ---
CC: Dr. Gu; Dr. Mckeon * HISTORY AND PHYSICAL: DATE OF ADMISSION: 04/13/19 PRIMARY CARE PROVIDER: Dr. Mckeon. ATTENDING PHYSICIAN WHILE IN THE HOSPITAL: Dr. Liss Wetzel * (dictated by Babita Parks NP). CHIEF COMPLAINT: Lightheaded. HISTORY OF PRESENT ILLNESS: Ms. Chaves is a 78-year-old female with a past medical history significant for end-stage renal disease, history of Crohn's with ileostomy, who presented initially to [facility] with complaints of lightheaded, dizziness and feeling of dehydration. The patient reports that she traveled to [place] last week to help her sister in selling her family's home and returned on Thursday. She reports that she was very busy while in [place] and was not drinking and eating as she would normally when she was home. She reports that she has been feeling off for a couple of days and then today she was shopping in [place], had an episode of feeling lightheaded and dizziness with mild nausea, so she presented to the [facility] because she felt as though she was dehydrated. The patient also reports that she has had slightly more output in her ileostomy than normal. While at [facility], she was found to have elevated BUN and creatinine. They contacted Dr. Gu who recommended the patient be transferred to [facility] for further evaluation of her worsening renal function. On evaluation in the emergency room, the patient had a CBC and a BMP. Her renal function was noted to be BUN 15, creatinine of 3.73. Her baseline BUN is 41 and baseline creatinine has been 3.3 during 2018. Due to the mild elevation in her BUN and creatinine, we were asked to see and evaluate the patient for admission. The patient did receive IV fluids normal saline in the emergency room at [place] and then she is receiving IV fluids here in the emergency room and the patient does report that she is feeling close to her baseline that her symptoms have resolved, she is no longer dizzy, does not feel weak or lightheaded at this time. PAST MEDICAL HISTORY: Significant for: 1. End-stage renal disease with fistula placement in the left arm. 2. Crohn's. 3. History of bladder spasms. PAST SURGICAL HISTORY: 1. Multiple bowel surgeries. 2. Ileostomy. 3. Fistula. 4. Hernia repair. 5. Cholecystectomy. 6. Appendectomy. 7. Tubal ligation. HOME MEDICATIONS: Include oxycodone 5/325, she takes it 2 to 3 times a week as needed for pain. ALLERGIES: FLAGYL, QUININE, DEMEROL, LATEX causes a rash. FAMILY HISTORY: Father at the age of 78. Mother with dementia. Mother and sister both with breast cancer. SOCIAL HISTORY: The patient denies tobacco, alcohol, or illicit drug use. She lives with her daughter, Margarette . She is a full code. REVIEW OF SYSTEMS: She denies any fever or unintended weight loss. Denies any chest pain, edema, cough, hemoptysis, or shortness of breath. No nausea, vomiting, diarrhea. She denies any abdominal pain. She denies any gross hematuria, dysuria, focal weakness, or sensory loss. Denies any visual complaints, dysphagia, arthralgias, myalgias, rashes, lesions, open sores, psychosis, or anxiety. She did have complaints of dizziness, lightheadedness, and slight nausea. PHYSICAL EXAMINATION GENERAL: At this time, Ms. Chaves is a 78-year-old female. She is resting comfortably on a stretcher in the emergency room. She is in no acute distress. VITAL SIGNS: Blood pressure is 136/85, heart rate is 70, respirations are 16, O2 saturation 97%, temperature 98.4. HEENT: Head is atraumatic, normocephalic. Eyes: EOMs are intact. Sclerae anicteric and not pale. Oral mucosa appeared to be moist. NECK: Supple. LUNGS: Clear to auscultation bilaterally. No wheezes, rales, or rhonchi. CARDIAC: S1, S2. Regular rate and rhythm. No murmurs, rubs, or gallops. ABDOMEN: Soft and nontender. Her bowel sounds are present. She does have an ileostomy bag intact to her left mid abdomen. EXTREMITIES: She is able to move all 4 extremities. There is no clubbing or cyanosis. Pedal pulses are +2 bilaterally. NEUROLOGIC: She is awake, alert, oriented x3. Speech is clear. Thought process is intact. There are no gross focal deficits. SKIN: Intact. DIAGNOSTIC STUDIES/LAB DATA: WBCs are 7.8, RBCs 3.67, hemoglobin is 11.1, hematocrit is 33, platelet count is 278,000. Sodium 139, potassium 4.2, chloride 108, carbon dioxide was 21, anion gap was 10, BUN was 50, creatinine 3.73, glucose was 102, lactic acid 0.8, calcium was 7.7. She had a chest x-ray at [facility], which showed no acute cardiopulmonary disease. ASSESSMENT AND PLAN: Ms. Chaves is a 78-year-old female with a past medical history significant for end-stage renal disease and history of Crohn's with an ileostomy, who presented to the emergency room with complaints of lightheadedness and dizziness, weakness. She will be admitted under observation for: 1. Weakness/dehydration. I suspect that her weakness, lightheaded, and dizziness is related to dehydration as the patient reports that she has not been drinking and eating as her normal as she was helping sell her mother's house in [place] and recently returned home on Thursday. She denies any recent sick contacts. Denies any recent fever or chills. She does report increased output in her ileostomy and the inability to keep up with p.o. intake which she believes has caused her dehydration. The patient received 1 L of normal saline in [facility]. She received another liter in the emergency room. I will continue her on normal saline at 100 cc per hour. I will repeat a BMP and CBC in the a.m. 2. End-stage renal disease. The patient does have a fistula in her left arm. I do not feel a thrill on the fistula at this time. I would recommend that the patient have further evaluation of her fistula. This could be done as an outpatient as there is no thrill in her left forearm fistula. The patient does report she recently broke her left wrist and recently had a cast removed approximately 1 week ago. We will repeat a BMP in the a.m. to further evaluate her renal function. 3. FEN: She can have a regular diet. 4. Code status: She is a full code. 5. DVT prophylaxis: I placed her on heparin subcu q.12 hours. TIME SPENT: Time spent on this admission was approximately 60 minutes, greater than half that time was spent at the bedside reviewing events leading thus far to her hospitalization, performing physical exam, and reviewing my plan of care. I have discussed this with my attending, Dr. Liss Wetzel. BABITA PARKS, DIRECTOR OF ANNUAL GIVING [id number]/[facility] #: [id number] [facility] HOSPITALJulia
[2019-04-13] MEDS: Heparin VIAL(*) 5000 UNITS/ML VIAL (FIVE THOUSAND) SUBCUT SCH (20:29)
[2019-04-14 07:01] LABS: ABS Eosinophils 0.2 10^3/ul (0-0.6); ABS Monocytes 0.4 10^3/ul (0-0.8); ABS Neutrophils 4.2 10^3/ul (1.5-7.7); Eosinophil % 3.2 %; Hematocrit 31 % (35-47); Hemoglobin 10.7 g/dL (12.0-16.0); Lymphocyte % 29.1 %; Mean Corpuscular HGB Conc 35 g/dL (31-36); Mean Corpuscular Hemoglobin 31 pg (27-31); Mean Corpuscular Volume 89 fL (80-97); Mean Platelet Volume 7.2 fL (7.4-10.4); Platelet Count 260 10^3/uL (150-450); Red Blood Count 3.47 10^6 /uL (3.70-4.87); Red Cell Distribution Width 14 % (10-15); White Blood Count 6.8 10^3/uL (3.5-10.8)
[2019-04-14 07:18] LABS: Calcium 7.8 mg/dL (8.6-10.3); EGFR African American 16.7 (>60); EGFR Non-African American 13.8 (>60); Potassium 3.9 mmol/L (3.5-5.0)
[2019-04-14] MEDS: Heparin VIAL(*) 5000 UNITS/ML VIAL (FIVE THOUSAND) SUBCUT SCH (09:02)
[2019-04-14 10:17] LABS: Magnesium 1.4 mg/dL (1.9-2.7); Phosphorus 5.1 mg/dL (2.5-5.0)
[2019-04-14] MEDS ORDERED: Magnesium Sulf 4 GM/100 ML IV* 4,000 MG/100 ML BAG IVPB ONE (10:43)
[2019-04-14 14:41] VITALS: BP 144/65
--- NOTE | 2019-04-14 22:01 | DS ---
CC: Dr. Mckeon * DISCHARGE SUMMARY: DATE OF ADMISSION: 04/13/19 DATE OF DISCHARGE: 04/14/19 ATTENDING PHYSICIAN: Dr. Liss Wetzel * (dictated by JOSEPH Edwards). PRIMARY CARE PROVIDER: Dr. Mckeon. PRIMARY DIAGNOSIS: Dehydration. SECONDARY DIAGNOSES: 1. End-stage renal disease with fistula placement in left arm. 2. Crohn's. 3. History of bladder spasms. STUDIES WHILE IN THE HOSPITAL: Duplex of left upper extremity on 04/13/19, impression: Patent left forearm AV fistula visualized. Negative for significant elevated peak systolic velocity at the arterial or venous segments to indicate hemodynamically significant stenosis. DISCHARGE MEDICATIONS: No new medications. Continued home medications: Percocet 5/325 one tab p.o. q.6 hours p.r.n. pain. HISTORY OF PRESENT ILLNESS/HOSPITAL COURSE: Yue Chaves is a 78-year-old white female with past medical history significant for end-stage renal disease, Crohn's and bladder spasms, who presented to the emergency department on complaining of feeling lightheaded. Please see the admitting history and physical dictated by Babita Parks NP, for further information. During her time at [facility] as well as [facility], the patient received normal 2 L of fluid. After this, the patient's creatinine improved from 3.73 to 3.26, which is approximately the patient's baseline. It is determined that the patient likely had a prerenal CRIS on chronic kidney disease due to dehydration, due to poor oral intake as well as possible increased output of ileostomy. Before she left today, her phosphorus was checked and was 5.1 and her magnesium was 1.4 and her magnesium was repleted with IV magnesium sulfate. This case was discussed with Dr. Gu who is comfortable with the patient's discharge. On day of discharge, the patient feels well. She did not feel dizziness or lightheadedness at rest, nor when walking. While in the hospital today, she denies chest pain, difficulty breathing, abdominal pain, or blurred vision. Because the patient had no palpable thrill, there was concern for possible occlusion of her AV fistula; however, this is ruled out with Doppler, it is likely that the absence of palpable thrill is due to her fluid resuscitation. REVIEW OF SYSTEMS: An 11-point review of systems was completed and all pertinent positives and negatives are above in the HPI. All other systems are negative. PHYSICAL EXAMINATION: Thin elderly white female, lying in hospital bed, appearing in no acute distress. Head: Normocephalic, atraumatic. Eyes: PERRL. Sclerae anicteric. ENT: Mucous membranes moist. Neck: Supple without JVD. Lungs: Clear to auscultation throughout. Cardio: Regular rate and rhythm without murmurs, rubs, or gallops. Abdomen: Abdomen is soft, nontender, nondistended. Ileostomy in left mid abdomen. Extremities: AV fistula with bruits and pulsations, but no palpable thrill. Neuro: The patient is alert and oriented x3. No focal deficits. DISCHARGE PLAN: Diet: Renal diet recommended. Activity: Return to normal activity as tolerated. The patient is to return to the emergency department if she experiences dizziness or lightheadedness, chest pain, difficulty breathing, loss of consciousness. The patient is advised to drink approximately 8 cups of water per day or more if she notices increased output of her ileostomy. She is advised to follow up with her primary care provider in [address] Gu would like the patient to follow up shortly and advised the patient to call his office today to schedule his appointment. It is recommended the patient have followup electrolytes. CONDITION ON DISCHARGE: Stable. DISPOSITION: Home. TIME SPENT: Approximately 35 minutes was spent on this discharge, approximately half of this time was spent at bedside. JOSEPH EDWARDS [id number]/[facility] #: [id number] ARIEL
== END 2019-04-14 17:35 | disposition home or self-care (01) ==
LOC: ED 13:50 → MED 16:10
PROVIDERS: ADMIT Internal Medicine; ATTEND Internal Medicine
DX: E86.0 Dehydration (principal); N18.6 End stage renal disease; K50.90 Crohn's disease, unspecified, without complications; N28.9 Disorder of kidney and ureter, unspecified; I77.0 Arteriovenous fistula, acquired; Z95.828 Presence of other vascular implants and grafts; Z85.51 Personal history of malignant neoplasm of bladder; Z88.2 Allergy status to sulfonamides; R09.81 Nasal congestion; R06.02 Shortness of breath
CPT/HCPCS: 36415; 80048; 83605; 83735; 84100; 85025; 86140; 96372; 96374; 99284; G0378; J1644; J3475

== ENCOUNTER 2019-08-14 17:28 | Emergency (ER) | payer MEDICARE, MEDICAID ==
[2019-08-14 18:59] LABS: ABS Basophils 0.1 10^3/ul (0-0.2); ABS Eosinophils 0.2 10^3/ul (0-0.6); ABS Lymphocytes 1.7 10^3/ul (1.0-4.8); ABS Monocytes 0.5 10^3/ul (0-0.8); ABS Neutrophils 6.5 10^3/ul (1.5-7.7); Eosinophil % 1.9 %; Hematocrit 34 % (35-47); Hemoglobin 11.5 g/dL (12.0-16.0); Lymphocyte % 18.5 %; Mean Corpuscular HGB Conc 34 g/dL (31-36); Mean Corpuscular Hemoglobin 31 pg (27-31); Mean Corpuscular Volume 92 fL (80-97); Nucleated Red Blood Cells % 0.1; Platelet Count 276 10^3/uL (150-450); Red Blood Count 3.73 10^6 /uL (3.70-4.87); Red Cell Distribution Width 13 % (10-15); White Blood Count 8.9 10^3/uL (3.5-10.8)
[2019-08-14 19:18] LABS: Albumin 4.1 g/dL (3.2-5.2); Albumin/Globulin Ratio 1.3 (1-3); BUN/Creatinine Ratio 11.2 (8-20); C Reactive Protein 5.09 mg/L (<8.01); EGFR Non-African American 12.4 (>60); Globulin 3.2 g/dL (2-4); Magnesium 1.4 mg/dL (1.9-2.7); Total Bilirubin 0.3 mg/dL (0.2-1.0); Total Protein 7.3 g/dL (6.4-8.9)
[2019-08-14 19:36] LABS: Potassium 4.9 mmol/L (3.5-5.0)
--- NOTE | 2019-08-14 19:43 | ED ---
GI/ HPI - HPI Summary HPI Summary: This patient is a 78 year old F with a history of stage 4 kidney disease presenting to ED with a chief complaint of diarrhea since yesterday. Patient is worried about severe dehydration and does not want to go on dialysis. The diarrhea began yesterday after the patient had breakfast. She was fine before yesterday. She has an ostomy as she had perforating Crohns 20 years ago. Yesterday, she noted watery diarrhea in her ostomy and also had mild cramping/ gripping abdominal pain. Patient also reports nausea. She denies fevers, chills , vomiting, change in appetite, and seeing blood in the ostomy. The patient rates the pain 0/10 in severity. Symptoms aggravated by nothing. Symptoms alleviated by nothing. - History of Current Complaint Chief Complaint: EDNauseaVomitDiarrh Time Seen by Provider: 08/14/19 19:30 Stated Complaint: Diarrhea Hx Obtained From: Patient Onset/Duration: Started Days Ago - Yesterday, Still Present Severity: Mild Current Severity: Mild Pain Intensity: 0 Location of Pain: Diffuse Pain Characteristics: Cramping Associated Signs and Symptoms: Positive: Nausea, Diarrhea, Abdominal Pain. Negative: Vomiting, Blood w/Stool, Fever, Chills Aggravating Factor(s): Nothing Alleviating Factor(s): Nothing - Allergy/Home Medications Allergies/Adverse Reactions: Allergies Allergy/AdvReac Type Severity Reaction Status Date / Time latex Allergy Rash Verified 08/03/18 09:25 meperidine [From Demerol] Allergy Vomiting Verified 08/03/18 09:26 Sulfa (Sulfonamide AdvReac Mild Nausea Verified 08/03/18 09:25 Antibiotics) metronidazole [From Flagyl] AdvReac Nausea Verified 08/03/18 09:25 quinine AdvReac Nausea And Verified 08/03/18 09:25 Vomiting PMH/Surg Hx/FS Hx/Imm Hx Endocrine/Hematology History: Reports: Hx Anemia - takes iron Cardiovascular History: Denies: Hx Pacemaker/ICD Respiratory History: Denies: Other Respiratory Problems/Disorders GI History: Reports: Hx Crohn's Disease, Hx Irritable Bowel, Hx Ileostomy - iliostomy, Other GI Disorders - ileostomy on left side currently, colon resection x3 History: Reports: Hx Chronic Renal Failure, Hx Kidney Infection, Other Problems/Disorders - hx UTI's Musculoskeletal History: Reports: Hx Arthritis - bilateral hands, right ankle Sensory History: Reports: Hx Cataracts - bilateral, no surgery yet, Hx Contacts or Glasses - glasses Denies: Hx Hearing Aid Opthamlomology History: Reports: Hx Cataracts - bilateral, no surgery yet, Hx Contacts or Glasses - glasses Neurological History: Reports: Other Neuro Impairments/Disorders - hx vertigo - evaluated by dr james Psychiatric History: Denies: Hx Panic Disorder - Surgical History Surgery Procedure, Year, and Place: [id number] or 1999. Cyst removed Left breast, cholecystectomy, abdominal hernia repair. T&A, LARGE INTESTINE REMOVED Hx Anesthesia Reactions: No Infectious Disease History: No Infectious Disease History: Denies: Hx Clostridium Difficile, Hx Hepatitis, Hx Human Immunodeficiency Virus (HIV), Hx of Known/Suspected MRSA, Hx Shingles, Hx Tuberculosis, Hx Known/ Suspected VRE, Hx Known/Suspected VRSA, History Other Infectious Disease, Traveled Outside the [place] in Last 30 Days - Family History Known Family History: Positive: Hypertension Negative: Cardiac Disease, Diabetes - Social History Alcohol Use: None Alcohol Amount: hx alcoholism - reports last drink 2014 Hx Substance Use: No Substance Use Type: Reports: None Hx Tobacco Use: No Smoking Status (MU): Never Smoked Tobacco Review of Systems Negative: Fever, Chills Gastrointestinal: Negative - Blood in ostomy, change in appetite Positive: Abdominal Pain, Diarrhea - Watery diarrhea in ostomy, Nausea. Negative: Vomiting All Other Systems Reviewed And Are Negative: Yes Physical Exam - Summary Physical Exam Summary: Appearance: Well-appearing, Well-nourished, lying in bed comfortably Skin: Warm, dry, no obvious rash Eyes: sclera anicteric, no conjunctival pallor ENT: dry mucus membranes Neck: Supple, nontender Respiratory: Clear to auscultation, no signs of respiratory distress Cardiovascular: Normal S1, S2. No murmurs. Normal distal pulses in tibial and radial bilaterally. Abdomen: Soft, nontender, normal active bowel sounds present, ostomy of left hand side with parastomal hernia Musculoskeletal: Normal, Strength/ROM Intact, no swelling in legs Neurological: A&Ox3, awake and alert, mentation is normal, speech is fluent and appropriate Psychiatric: affect is normal, does not appear anxious or depressed Triage Information Reviewed: Yes Vital Signs On Initial Exam: Initial Vitals Temp Pulse Resp BP Pulse Ox 99 F 87 18 156/95 99 08/14/19 17:30 08/14/19 17:30 08/14/19 17:30 08/14/19 17:30 08/14/19 17:30 Vital Signs Reviewed: Yes Procedures - Sedation Patient Received Moderate/Deep Sedation with Procedure: No Diagnostics - Vital Signs Vital Signs Temp Pulse Resp BP Pulse Ox 08/14/19 19:29 80 154/73 97 08/14/19 17:30 99 F 87 18 156/95 99 - Laboratory Lab Results: Lab Results 08/14/19 08/14/19 08/14/19 Range/Units 18:52 18:52 18:52 WBC 8.9 (3.5-10.8) 10^3/uL RBC 3.73 (3.70-4.87) 10^6 /uL Hgb 11.5 L (12.0-16.0) g/dL Hct 34 L (35-47) % MCV 92 (80-97) fL MCH 31 (27-31) pg MCHC 34 (31-36) g/dL RDW 13 (10-15) % Plt Count 276 (150-450) 10^3/uL MPV 7.0 L (7.4-10.4) fL Neut % (Auto) 72.8 % Lymph % (Auto) 18.5 % Schley % (Auto) 6.1 % Eos % (Auto) 1.9 % Baso % (Auto) 0.7 % Absolute Neuts (auto) 6.5 (1.5-7.7) 10^3/ul Absolute Lymphs (auto) 1.7 (1.0-4.8) 10^3/ul Absolute Monos (auto) 0.5 (0-0.8) 10^3/ul Absolute Eos (auto) 0.2 (0-0.6) 10^3/ul Absolute Basos (auto) 0.1 (0-0.2) 10^3/ul Absolute Nucleated RBC 0.0 10^3/ul Nucleated RBC % 0.1 Sodium 135 (135-145) mmol/L Potassium 4.9 (3.5-5.0) mmol/L Chloride 104 (101-111) mmol/L Carbon Dioxide 23 (22-32) mmol/L Anion Gap 8 (2-11) mmol/L BUN 40 H (6-24) mg/dL Creatinine 3.58 H (0.51-0.95) mg/dL Est GFR ( Amer) 15.0 (>60) Est GFR (Non-Af Amer) 12.4 (>60) BUN/Creatinine Ratio 11.2 (8-20) Glucose 97 (70-100) mg/dL Lactic Acid 0.7 (0.5-2.0) mmol/L Calcium 8.0 L (8.6-10.3) mg/dL Magnesium 1.4 L (1.9-2.7) mg/dL Total Bilirubin 0.30 (0.2-1.0) mg/dL AST 16 (13-39) U/L ALT 14 (7-52) U/L Alkaline Phosphatase 86 (34-104) U/L C-Reactive Protein 5.09 (<8.01) mg/L Total Protein 7.3 (6.4-8.9) g/dL Albumin 4.1 (3.2-5.2) g/dL Globulin 3.2 (2-4) g/dL Albumin/Globulin Ratio 1.3 (1-3) Lipase 157 H (11.0-82.0) U/L Result Diagrams: 08/14/19 18:52 08/14/19 18:52 Lab Statement: Any lab studies that have been ordered have been reviewed, and results considered in the medical decision making process. Re-Evaluation - Re-Evaluation First Eval Re-Evaluation Time: 21:46 Comment: Discussed results with patient. Patient will be discharged home with dx of diarrhea. Patient understands and agrees with this plan. GIGU Course/Dx - Course Course Of Treatment: This patient is a 78 year old F with a history of stage 4 kidney disease presenting to ED with a chief complaint of diarrhea since yesterday. Blood work revealed Hgb 11.5, Hct 34, MPV 7.0, BUN 40, creatinine 3.58, calcium 8.0, magnesium 1.4, lipase 157. UA revealed squamous cell present , specific gravity 1.002, 1+ urine blood, 1+ leukocyte esterase, 1+ WBC, 1+ bacteria. In the ED course patient received Lomotil. C. difficile PCR stool culture presumptive negative. Discussed results with patient. Patient will be discharged home with dx of diarrhea. Patient understands and agrees with this plan. - Diagnoses Provider Diagnoses: Diarrhea Discharge ED - Sign-Out/Discharge Documenting (check all that apply): Patient Departure - Discharge - Discharge Plan Condition: Good Disposition: HOME Prescriptions: Diphenoxylat/Atrop 2.5-0.025M* [Lomotil TAB*] 1 tab PO QID PRN #12 tab MDD 4 PRN Reason: Diarrhea Patient Education Materials: Acute Diarrhea (ED) Referrals: Octavio Mckeon MD [Primary Care Provider] - 3 Days (if not improving) - Billing Disposition and Condition Condition: GOOD Disposition: Home - Attestation Statements Document Initiated by Scribe: Yes Documenting Scribe: Wilver Verdugo Provider For Whom Sara is Documenting (Include Credential): Milton Jin MD Scribe Attestation: Wilver Laureano, scribed for Milton Jin MD on 08/15/19 at 0340. Scribe Documentation Reviewed: Yes Provider Attestation: The documentation as recorded by the Wilver valdes accurately reflects the service I personally performed and the decisions made by me, Milton Jin MD Status of Scribe Document: Viewed
[2019-08-14 21:16] LABS: Urine Appearance Clear; Urine Bacteria 1+ (Absent); Urine Bilirubin Negative (Negative); Urine Blood 1+ (Negative); Urine Color Colorless; Urine Glucose Negative (Negative); Urine Ketones Negative (Negative); Urine Nitrite Negative (Negative); Urine Protein Negative (Negative); Urine Red Blood Cell Trace(0-2/hpf) (Absent); Urine Specific Gravity 1.002 (1.010-1.030); Urine Squamous Epithelial Cell Present (Absent); Urine Urobilinogen Negative (Negative); Urine White Blood Cell 1+(6-10/hpf) (Absent)
[2019-08-14] MEDS ORDERED: Diphenoxylat/Atrop 2.5-0.025M* 1 TAB PO ONE (21:45)
[2019-08-14 22:03] VITALS: BP 167/82
== END 2019-08-14 21:50 | disposition home or self-care (01) ==
LOC: ED 17:28
DX: R19.7 Diarrhea, unspecified (principal); N18.4 Chronic kidney disease, stage 4 (severe); Z99.2 Dependence on renal dialysis; K50.90 Crohn's disease, unspecified, without complications; Z79.899 Other long term (current) drug therapy
CPT/HCPCS: 36415; 80053; 81003; 81015; 83605; 83690; 83735; 85025; 86140; 87045; 87046; 87086; 87493; 87899; 99282; A9270-GY

== ENCOUNTER 2019-09-15 08:41 | Inpatient (IN) | payer MEDICARE, MEDICAID ==
--- NOTE | 2019-09-15 09:04 | ED ---
Complex/Multi-Sys Presentation - HPI Summary HPI Summary: This patient is a 78 year old F presenting to [facility] with a chief complaint of nausea, vomiting, diarrhea, and ABD pain since 1 day ago. The ABD pain is intermittent and is better at the moment. Pt notes that someone else in her building had diarrhea as well. Pt has kidney disease and Crohns disease.The patient rates the pain 9/10 in severity. Symptoms aggravated by nothing. Symptoms alleviated by nothing. Patient reports chills, dizziness. Pt denies any fever, erythema of eyes, sore throat, CP, SOB, cough, dysuria, hematuria, myalgia, edema, rash. - History Of Current Complaint Chief Complaint: EDAbdPain Time Seen by Provider: 09/15/19 08:44 Hx Obtained From: Patient Onset/Duration: Sudden Onset, Lasting Days - 1, Still Present Timing: Constant, Days - 1 Severity Currently: Mild Severity Initially: Mild Aggravating Factor(s): nothing Alleviating Factor(s): nothing Associated Signs And Symptoms: Positive: Dizziness, Nausea, Vomiting, Diarrhea, Abdominal Pain, Other - positive - chills. negative - any erythema of eyes, sore throat, dysuria, hematuria, myalgia, rash.. Negative: SOB, Cough, Chest Pain, Edema, Fever - Allergies/Home Medications Allergies/Adverse Reactions: Allergies Allergy/AdvReac Type Severity Reaction Status Date / Time latex Allergy Rash Verified 08/03/18 09:25 meperidine [From Demerol] Allergy Vomiting Verified 08/03/18 09:26 Sulfa (Sulfonamide AdvReac Mild Nausea Verified 08/03/18 09:25 Antibiotics) metronidazole [From Flagyl] AdvReac Nausea Verified 08/03/18 09:25 quinine AdvReac Nausea And Verified 08/03/18 09:25 Vomiting PMH/Surg Hx/FS Hx/Imm Hx Previously Healthy: No Endocrine/Hematology History: Reports: Hx Anemia - takes iron Cardiovascular History: Denies: Hx Pacemaker/ICD Respiratory History: Denies: Other Respiratory Problems/Disorders GI History: Reports: Hx Crohn's Disease, Hx Irritable Bowel, Hx Ileostomy - iliostomy, Other GI Disorders - ileostomy on left side currently, colon resection x3 History: Reports: Hx Chronic Renal Failure, Hx Kidney Infection, Other Problems/Disorders - hx UTI's Musculoskeletal History: Reports: Hx Arthritis - bilateral hands, right ankle Sensory History: Reports: Hx Cataracts - bilateral, no surgery yet, Hx Contacts or Glasses - glasses Denies: Hx Hearing Aid Opthamlomology History: Reports: Hx Cataracts - bilateral, no surgery yet, Hx Contacts or Glasses - glasses Neurological History: Reports: Other Neuro Impairments/Disorders - hx vertigo - evaluated by dr james Psychiatric History: Denies: Hx Panic Disorder - Surgical History Surgical History: Yes Surgery Procedure, Year, and Place: [id number] or 1999. Cyst removed Left breast, cholecystectomy, abdominal hernia repair. T&A, LARGE INTESTINE REMOVED Hx Anesthesia Reactions: No Infectious Disease History: No Infectious Disease History: Denies: Hx Clostridium Difficile, Hx Hepatitis, Hx Human Immunodeficiency Virus (HIV), Hx of Known/Suspected MRSA, Hx Shingles, Hx Tuberculosis, Hx Known/ Suspected VRE, Hx Known/Suspected VRSA, History Other Infectious Disease, Traveled Outside the [place] in Last 30 Days - Family History Known Family History: Positive: Hypertension Negative: Cardiac Disease, Diabetes - Social History Alcohol Use: None Alcohol Amount: hx alcoholism - reports last drink 2014 Hx Substance Use: No Substance Use Type: Reports: None Hx Tobacco Use: No Smoking Status (MU): Never Smoked Tobacco Review of Systems Positive: Chills. Negative: Fever Negative: Erythema Negative: Sore Throat Negative: Chest Pain Negative: Shortness Of Breath, Cough Positive: Abdominal Pain, Vomiting, Diarrhea, Nausea Negative: dysuria, hematuria Negative: Myalgia, Edema Negative: Rash Neurological: Other - positive - dizziness All Other Systems Reviewed And Are Negative: Yes Physical Exam - Summary Physical Exam Summary: Constitutional: Well-developed, Well-nourished, Alert. (-) Distressed Skin: Warm, Dry HENT: Normocephalic; Atraumatic. Dry oral mucosa Eyes: Conjunctiva normal Neck: Musculoskeletal ROM normal neck. (-) JVD, (-) Stridor, (-) Tracheal deviation Cardio: Rhythm regular, rate normal, Heart sounds normal; Intact distal pulses; The pedal pulses are 2+ and symmetric. Radial pulses are 2+ and symmetric. (-) Murmur Pulmonary/Chest wall: Effort normal. (-) Respiratory distress, (-) Wheezes, (-) Rales Abd: Soft, (-) tenderness, (-) Distension, (-) Guarding, (-) Rebound. Left side ventral hernia which is soft and easily reducible and non-tender. GIGU: Thin watery stool in colostomy bag Musculoskeletal: (-) Edema Lymph: (-) Cervical adenopathy Neuro: Alert, Oriented x3 Psych: Mood and affect Normal Triage Information Reviewed: Yes Vital Signs On Initial Exam: Initial Vitals Temp Pulse Resp BP Pulse Ox 100 F 92 18 155/98 95 09/15/19 08:45 09/15/19 08:45 09/15/19 08:45 09/15/19 08:45 09/15/19 08:45 Vital Signs Reviewed: Yes Procedures - Sedation Patient Received Moderate/Deep Sedation with Procedure: No Diagnostics - Vital Signs Vital Signs Temp Pulse Resp BP Pulse Ox 09/15/19 08:45 100 F 92 18 155/98 95 - Laboratory Result Diagrams: 09/16/19 06:34 09/21/19 07:43 Lab Statement: Any lab studies that have been ordered have been reviewed, and results considered in the medical decision making process. Complex Multi-Symp Course/Dx Course Of Treatment: This patient is a 78 year old F presenting to [facility] with a chief complaint of nausea, vomiting, diarrhea, and ABD pain since 1 day ago. The ABD pain is intermittent and is better at the moment. Pt notes that someone else in her building had diarrhea as well. Pt has kidney disease and Crohns disease.The patient rates the pain 9/10 in severity. Symptoms aggravated by nothing. Symptoms alleviated by nothing. Patient reports chills, dizziness. Pt denies any fever, erythema of eyes, sore throat, CP, SOB, cough, dysuria, hematuria, myalgia, edema, rash. Physical exam shows thin watery stool in colostomy bag, left side ventral hernia which is soft and easily reducible and non-tender, dry oral mucosa. Pt's ABD pain is crampy with no signicant tendernsnss. I do not suspect a surgical abdomen. Lab results show WBC 14.2, absolute neuts 12.5, absolute lymphs 0.9, carbon dioxide 21, BUN 47, creatinine 3.91, glucose 118, calcium 8, alkaline phosphatase 108, CRP 41.55. During ED course, pt was given fluids, Tylenol, Heparin, Percocet, and Zofran. At 1211, Dr. Wetzel agrees to admit pt. - Diagnoses Provider Diagnoses: Partial small bowel obstruction, Acute on chronic renal failure, Nausea vomiting and diarrhea - Physician Notifications Discussed Care Of Patient With: Liss Wetzel Time Discussed With Above Provider: 12:11 Instructed by Provider To: Other - Dr. Wetzel agrees to admit pt. Discharge ED - Sign-Out/Discharge Documenting (check all that apply): Patient Departure - admit - Discharge Plan Condition: Fair Disposition: ADMITTED TO [facility] - Billing Disposition and Condition Condition: FAIR Disposition: Admitted to [facility] - Attestation Statements Document Initiated by Scribe: Yes Documenting Scribe: Tu Estrella Provider For Whom Scribe is Documenting (Include Credential): Dr. Dinesh Aburto MD Scribe Attestation: Tu Laureano scribed for Dr. Dinesh Aburto MD on 09/25/19 at 1206. Scribe Documentation Reviewed: Yes Provider Attestation: The documentation as recorded by the Tu valdes accurately reflects the service I personally performed and the decisions made by me, Dr. Dinesh Aburto MD Status of Scribe Document: Viewed
[2019-09-15 09:47] LABS: ABS Lymphocytes 0.9 10^3/ul (1.0-4.8); ABS Monocytes 0.7 10^3/ul (0-0.8); ABS Neutrophils 12.5 10^3/ul (1.5-7.7); Eosinophil % 0.1 %; Hematocrit 36 % (35-47); Hemoglobin 12.1 g/dL (12.0-16.0); Lymphocyte % 6.6 %; Mean Corpuscular HGB Conc 34 g/dL (31-36); Mean Corpuscular Hemoglobin 31 pg (27-31); Mean Corpuscular Volume 90 fL (80-97); Mean Platelet Volume 7.4 fL (7.4-10.4); Platelet Count 281 10^3/uL (150-450); Red Blood Count 3.96 10^6 /uL (3.70-4.87); Red Cell Distribution Width 13 % (10-15); White Blood Count 14.2 10^3/uL (3.5-10.8)
[2019-09-15 10:02] LABS: Albumin 3.8 g/dL (3.2-5.2); Albumin/Globulin Ratio 1.1 (1-3); C Reactive Protein 41.55 mg/L (<8.01); EGFR African American 13.5 (>60); EGFR Non-African American 11.2 (>60); Globulin 3.4 g/dL (2-4); Potassium 4.2 mmol/L (3.5-5.0); Total Bilirubin 0.6 mg/dL (0.2-1.0); Total Protein 7.2 g/dL (6.4-8.9)
[2019-09-15] MEDS ORDERED: Ondansetron INJ* 2 MG/ML VIAL IV ONE (10:13)
[2019-09-15] MEDS ORDERED: NS 0.9% 1000 ML** 2,000 ML IV ONE (10:13)
[2019-09-15] MEDS ORDERED: Acetaminophen TAB* 325 MG PO PRN (12:11)
[2019-09-15] MEDS: Heparin VIAL(*) 5000 UNITS/ML VIAL (FIVE THOUSAND) SUBCUT SCH ×2 (14:28→21:05)
[2019-09-15] MEDS: NS 0.9% 1000 ML** 1,000 ML IV SCH (14:30)
--- NOTE | 2019-09-15 15:14 | HP ---
CC: Dr. Octavio Mckeon; Dr. Seo * HISTORY AND PHYSICAL: DATE OF ADMISSION: 09/15/19 PRIMARY CARE PROVIDER: Dr. Octavio Mckeon OTHER PROVIDER: Dr. Seo ATTENDING PHYSICIAN: Dr. Liss Wetzel * (dictated by JOSEPH Alejandre) CHIEF COMPLAINT: 1. Abdominal pain. 2. Nausea, vomiting, diarrhea. HISTORY OF PRESENT ILLNESS: Ms. Chaves is a 78-year-old female with a past medical history of end-stage renal disease, not on hemodialysis with fistula in place; history of Crohn's disease, status post colectomy and ileostomy, who presented to the ER today with complaints of abdominal pain, nausea, vomiting, diarrhea. The patient notes that she started to experience abdominal pain in the early afternoon yesterday. She reports that this pain was in the epigastric area, but then moved downward to the lower mid abdominal area. She had some nausea throughout this time. The pain slowly worsened around 2300. The patient started to have vomiting and diarrhea. This continued throughout the night and both symptoms had resolved by 0700 this morning. The patient was reporting continued nausea which was improved with IV Zofran. The patient reports emptying her ileostomy 4 to 5 times overnight due to diarrhea. She states she typically does not have to empty this overnight. She describes her stool as watery and brown/mishra color. There is no blood. The patient denies new medications. She has not recently been prescribed antibiotics. She feels that she may have eaten some cream cheese yesterday afternoon but her abdominal pain appears to have started prior to the consumption of this food. Yesterday evening, the patient attempted to eat some mashed potatoes and vomiting began shortly after that. Since then she has not consumed any food. She reports chills overnight but denies fevers and sweats. She denies dizziness , lightheadedness, but does note that she has occasional dizziness when she stands quickly and says that this is chronic. In the ER, the patient received a full workup including blood work revealing a leukocytosis. The patient has a mildly elevated creatinine. Her CRP is elevated to 41.55, lactic acid is negative. Lipase is within normal limits. The urinalysis is currently pending. The patient received 2 L IV fluid bolus in the ER as well as Zofran 8 mg IV. Hospitalist team was asked to evaluate the patient for admission. PAST MEDICAL HISTORY: 1. End-stage renal disease, not on hemodialysis. 2. History of Crohn's disease, status post colectomy and ileostomy. PAST SURGICAL HISTORY: 1. Colectomy. 2. Ileostomy. 3. Right arm fistula. 4. Hernia repair. 5. Cholecystectomy. 6. Appendectomy. 7. Tubal ligation. 8. Adenoidectomy/tonsillectomy. HOME MEDICATIONS: Oxycodone 5/325 p.o. daily as needed for pain. The patient reports that she uses this less than daily. DRUG ALLERGIES: LATEX, rash; MEPERIDINE, vomiting; SULFA, nausea; METRONIDAZOLE , nausea; QUININE, nausea and vomiting. FAMILY HISTORY: Father at the age of 78 from heart disease. Mother at the age of 97 and had a history of dementia and breast cancer. The patient has a sister with breast cancer who is living. Maternal grandmother, breast cancer. Paternal grandfather, heart disease, prostate cancer. No family history of CVA, diabetes mellitus. SOCIAL HISTORY: The patient denies current or former use of tobacco. She quit drinking alcohol approximately 20 years ago. She does not use any other illicit drugs. She is retired; her last job was at [employer]. She lives with her daughter. She is not . In the event that she is unable to make her own medical decisions, she has appointed her daughter, Margarette Medellin, to be her surrogate decision maker. REVIEW OF SYSTEMS: A 14-point review of systems has been performed and all the pertinent positives and negatives are in the HPI. All other systems are negative. PHYSICAL EXAMINATION GENERAL: Ms. Chaves is a well-developed, well-nourished, average weight, older white female who appears to be in no acute distress. She appears comfortable. VITAL SIGNS: Temperature 100.0 temporal, heart rate 92, respiratory rate 18, oxygen saturation 95% on room air, blood pressure 155/98. HEENT: PERRL. EOMI. Nonicteric sclerae. Hearing is grossly intact. Dry oral mucosa. There are no lesions. The pharynx is clear. Tongue is at midline. Palate elevates symmetrically. PULMONARY: Symmetrical chest expansion without use of accessory muscles. Clear to auscultation bilaterally without rhonchi, wheeze, rubs, or rales. No digital clubbing or cyanosis. CARDIOVASCULAR: Regular rate and rhythm with S1, S2 present. There are no murmurs, rubs, clicks, or gallops. There is no JVD. No peripheral edema. ABDOMEN: Multiple old surgical scars on the abdomen. There is a left lower quadrant ileostomy in place with liquid stool accumulation in bag. There is a left lower quadrant hernia noted. Bowel sounds are hypoactive. Abdomen is mildly tender to palpation throughout. Hernia is reducible. MUSCULOSKELETAL: Full range of motion without pain or deformities, 5/5 strength bilaterally in upper and lower extremities. There is a left forearm fistula in place. NEURO: The patient is awake. She is alert and oriented x3 with cranial nerves grossly intact. Muscle strength 5/5 bilaterally in the upper and lower extremities. DIAGNOSTIC STUDIES/LAB DATA: WBC 14.2, absolute neutrophils 12.5. BUN 47, creatinine 3.91, lactic acid 1.3, CRP 41.55, lipase 63. ASSESSMENT AND PLAN: Ms. Chaves is a 78-year-old female with a past medical history of end-stage renal disease, not on hemodialysis; history of Crohn's disease, status post colectomy and ileostomy, who presented to the ER today with complaints of abdominal pain, nausea, vomiting, diarrhea. The patient will be admitted to observation for: 1. Abdominal pain, nausea, vomiting, diarrhea. The patient has continued mild lower abdominal pain. She denies nausea, recent vomiting, recent diarrhea. She has received 2 L IV fluid bolus in the ER as well as Zofran 8 mg IV. She will be continued on gentle hydration at 100 cc/h. The patient is requesting food at this time. We will start with a clear liquid diet with instructions to advance diet slowly as tolerated. The patient appears to be dehydrated and therefore will receive IV fluid hydration. 2. Acute kidney injury on chronic kidney disease. The patient has mildly elevated creatinine. This is likely a result of prerenal acute kidney injury due to dehydration. The patient has received 2 L IV fluid bolus and she will continue on IV hydration. We will recheck kidney function in the a.m. 3. History of Crohn's, status post colectomy, ileostomy. Due to reported diarrhea, we will monitor the patient's ileostomy output. Otherwise supportive care. 4. DVT prophylaxis: According to the DVT Risk Assessment, the patient scores 3 placing her at high risk. She will be placed on heparin subcu. 5. Code status: Full code. TIME SPENT: Approximately 60 minutes was spent on this admission, greater than half that time was spent [id number] with the patient obtaining history, performing a physical, and reviewing the plan of care. The case has been reviewed with my attending, Dr. Wetzel, who is in agreement with the plan of care. JOSEPH LUCERO [id number]/CPS #: [id number] ARIEL
[2019-09-15 19:36] LABS: Urine Appearance Clear; Urine Bilirubin Negative (Negative); Urine Blood 1+ (Negative); Urine Color Yellow; Urine Glucose Negative (Negative); Urine Ketones Negative (Negative); Urine Nitrite Negative (Negative); Urine Protein Negative (Negative); Urine Specific Gravity 1.013 (1.010-1.030); Urine Urobilinogen Negative (Negative)
[2019-09-15 19:38] LABS: Urine Bacteria Absent (Absent); Urine Red Blood Cell Trace(0-2/hpf) (Absent); Urine Renal Epithelial Cells Present (Absent); Urine Squamous Epithelial Cell Present (Absent); Urine White Blood Cell 3+(>20/hpf) (Absent)
[2019-09-15] MEDS: oxyCODONE/Acetamin 5/325 MG* TAB PO PRN (21:04)
[2019-09-16] MEDS: NS 0.9% 1000 ML** 1,000 ML IV SCH (04:19)
[2019-09-16 06:55] LABS: ABS Eosinophils 0.1 10^3/ul (0-0.6); ABS Lymphocytes 1.5 10^3/ul (1.0-4.8); ABS Monocytes 0.6 10^3/ul (0-0.8); ABS Neutrophils 5.5 10^3/ul (1.5-7.7); Eosinophil % 1.7 %; Hematocrit 31 % (35-47); Hemoglobin 10.6 g/dL (12.0-16.0); Mean Corpuscular HGB Conc 34 g/dL (31-36); Mean Corpuscular Hemoglobin 31 pg (27-31); Mean Corpuscular Volume 91 fL (80-97); Mean Platelet Volume 7.4 fL (7.4-10.4); Platelet Count 238 10^3/uL (150-450); Red Cell Distribution Width 14 % (10-15); White Blood Count 7.7 10^3/uL (3.5-10.8)
[2019-09-16 07:13] LABS: Calcium 7.5 mg/dL (8.6-10.3); EGFR African American 12.9 (>60); EGFR Non-African American 10.6 (>60); Potassium 3.6 mmol/L (3.5-5.0)
[2019-09-16] MEDS: Heparin VIAL(*) 5000 UNITS/ML VIAL (FIVE THOUSAND) SUBCUT SCH ×3 (07:21→21:25)
--- NOTE | 2019-09-16 10:29 | PN ---
Subjective Date of Service: 09/16/19 Interval History: Ms. Chaves states that she is feeling better in terms of nausea and vomiting but continues to have abdominal pain and diarrhea. She denies chest pain, SOB. Despite her history of Crohn's with ileostomy, she does not have a frequent recent history of abdominal pain or other GI symptoms. Objective Active Medications: Acetaminophen (Tylenol Tab*) 650 mg PO Q4H PRN Heparin Sodium (Porcine) (Heparin Vial(*)) 5,000 units SUBCUT Q8HR TAINA Sodium Chloride (Ns 0.9% 1000 Ml) 1,000 mls @ 100 mls/hr IV PER RATE TAINA Ondansetron HCl (Zofran Inj*) 4 mg IV Q4H PRN Oxycodone/Acetaminophen (Percocet 5/325 Tab*) 1 tab PO Q8H PRN Vital Signs: Temp Pulse Resp BP Pulse Ox 98.2 F 74 18 110/61 96 09/16/19 07:00 09/16/19 07:00 09/16/19 07:23 09/16/19 07:00 09/16/19 07:00 Oxygen Devices in Use Now: None Appearance: Female lying in bed in NAD Eyes: No Scleral Icterus Ears/Nose/Mouth/Throat: Mucous Membranes Moist Neck: Trachea Midline Respiratory: Symmetrical Chest Expansion and Respiratory Effort, Clear to Auscultation Cardiovascular: NL Sounds; No Murmurs; No JVD, No Edema Abdominal: - - Soft, tender to palpation throughout, no rebound, BS + Extremities: No Edema Skin: No Rash or Ulcers Neurological: Alert and Oriented x 3, NL Muscle Strength and Tone Nutrition: Taking PO's Result Diagrams: 09/16/19 06:34 09/16/19 06:34 Assess/Plan/Problems-Billing Assessment: Ms. Chaves is a 78 yo F with a PMH of ESRD not on HD but with fistula in place, Crohn's with ileostomy who was admitted on 09/15/19 with abdominal pain, nausea , vomiting and acute on chronic renal failure. - Patient Problems (1) Nausea vomiting and diarrhea Comment: - Plan to image with CT abd/pelvis with PO contrast only given persistent pain - NPO until after CT - Continue zofran prn (2) Acute on chronic renal failure Comment: - Creatinine worse today, ESRD with fistula in place, not on dialysis - Nephrology consulted. Patient was a patient of Dr Gu, is planning to move to [place] next way and does not have nephrology follow up arranged - Switch from NS to LR given worsening acidosis (3) DVT prophylaxis Comment: - Heparin SQ. (4) Full code status Comment: Status and Disposition: Change to inpatient with worsening creatinine. Anticipate discharge to home when medically stable.
[2019-09-16] MEDS ORDERED: Lactated Ringers 1000 ML Bag* 1,000 ML IV ONE (12:48)
--- NOTE | 2019-09-16 15:46 | CONSULT ---
Consult Consult: Chief complaint: CRIS on CKD stage V History of present illness: Anastacio Turner is a very nice 78-year-old woman who was admitted for nausea, vomiting, abdominal pain. She was admitted yesterday for these symptoms of one day duration. Abdominal pain got worse throughout the day, until she felt so sick and dehydrated that decided to go to the emergency room. She has a history of colectomy and ileostomy due to Crohns disease and has a liquid stool that collects in the ileostomy bag. She has been emptying the bag a lot more frequently. She did not take any antibiotics recently. She was admitted to the hospital but few months ago. The symptoms started kind of abruptly and it intensified throughout the day yesterday. She states that her daughter has experienced nausea, vomiting and diarrhea and she thinks she got GI bug that circulating around. She was started on antibiotics yesterday. Still has some abdominal pain but is improved. Still feels very dry with dry mouth. She has a history of advanced chronic kidney disease and he was to be seen by Dr. Urban. She does not have a history of diabetes mellitus or hypertension. She was told that her chronic kidney disease was secondary to chronic volume depletion. Urine analysis is negative for blood and protein. She did not have a kidney biopsy done. She lives with her daughter and she was supposed to move to [place] with her son. Her departure to [place] has been delayed until next weekend. 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 She had a left upper arm AV graft placed some time ago, which is ready to be used. Baseline serum creatinine is about 3.2 mg/dL and it vito to 4.08 during this admission, despite IV fluids. No history of high blood pressure. Review of systems: Constitutional: No fevers, chills, night sweats Respiratory: no shortness of breath, hemoptysis, sputum Cardiovascular: No chest pain, palpitations, or leg swelling GI: as above in HPI : No dysuria, hematuria, frequency All systems were reviewed and they are all negative unless otherwise specified Past medical history 1. CKD stage V not on dialysis, unclear etiology. 2. History of Crohns disease status post colectomy and ileostomy. Past surgical history: 1. Colectomy 2. Ileostomy 3. Left arm AV graft 4. Hernia repair 5. Appendectomy 6. Cholecystectomy 7. Tubal ligation 8. Tonsillectomy Home medications: She takes only oxycodone 5/325 mg by mouth as needed. Current medications: Acetaminophen Heparin 5000 units subcu every 8 hours Lactated Ringers at 100 MLs per hour IV She was on normal saline which was replaced with lactated Ringers Zofran as needed Percocet as needed Allergies: Meperidine, sulfa, metronidazole, quinine, latex. Social history: Lives with her daughter. She does not smoke. She is currently not drinking. She quit about 20 years ago. She denies recreational drugs. She is retired. . Family history: Father had heart disease and at the age of 78 Mother at the age of 97. She had a history of dementia and breast cancer Sister who has a history of breast cancer No family history of Crohns or kidney disease. Physical exam: Vitals stable: Blood pressure 131/65. On admission yesterday was 104/55. Current temperature is 99 Fahrenheit oxygen saturation is 97% on room air, heart rate is 81 bpm, respiration rate 18/min. Intake and output: 1.6 L in and 0.4 L out. I do not think these measurements are accurate. Constitutional: No acute distress, pleasant and conversant, looking chronically ill Eyes: [place] conjunctiva, no ptosis, normal sclera, pupils are equal ENMT: Nose and ears appear normal. Dry mouth mucosa Neck: No thyromegaly appreciated, trachea midline, supple with full range of motion Chest: Clear to auscultation with good respiratory effort, no CVA tenderness Cardiovascular: Regular rate and rhythm, normal S1-S2, no murmurs rubs or gallops appreciated. No lower extremity edema. Gastrointestinal: Abdomen is soft, , nondistended, diffusely tender. Ileostomy bag in place with a large liquid content. No hepatosplenomegaly or organomegaly appreciated. No masses. Bowel sounds are present. No rebound. Musculoskeletal: No digital cyanosis or clubbing. Skin: No rashes, ulcers or lesions. Normal temperature. Decreased turgor Neurologic: Speech fluent, no tremors. Grossly nonfocal. Psychiatric: Alert and oriented x3, judgment and insight intact. Normal memory. Normal mood. Labs: White blood cell count was 14 yesterday and he dropped to 7.7 today. Hemoglobin was 12 yesterday and is 10.6 today. Platelet count 238 today. Serum creatinine is 4.08 today and it was 3.91 yesterday. Todays sodium and potassium are normal, 139 and 3.6 respectively total CO2 is 19 and dropping from 21 yesterday. Calcium is low at 7.5. Urine analysis is negative for protein without red blood cells. Assessment and plan: Patient is a very nice 78-year-old woman with history of advanced chronic kidney disease not on dialysis yet who presented with nausea and vomiting and is volume depleted. 1 Acute on chronic kidney disease. The due to volume depletion. Continue IV fluids. Agree with changing normal saline to Ringer lactate because of metabolic acidosis. 2. CKD stage V. Etiology is unknown but definitely she does not have a glomerulonephritis as her UA is negative for protein and blood. She has an AV graft in place. She is not uremic and does not need dialysis at this time. 3. Gastroenteritis. A little better than yesterday. Conservative management. 4. Volume depletion: Continue IV fluids to achieve positive volume balance. Strict Is and Os, daily weights. 5. Mild metabolic acidosis. Agree with Ringers lactate 6. DVT prophylaxis. Please change heparins out every from 5000 units every 8 hours to twice a day. Thank you for allowing me to participate in the care of Mrs. Yue Chaves.
[2019-09-16] MEDS: oxyCODONE/Acetamin 5/325 MG* TAB PO PRN (21:24)
[2019-09-17] MEDS: Ondansetron INJ* 2 MG/ML VIAL IV PRN ×2 (01:51→17:10)
[2019-09-17] MEDS ORDERED: oxyCODONE/Acetamin 5/325 MG* TAB PO ONE (02:00)
[2019-09-17] MEDS: Heparin VIAL(*) 5000 UNITS/ML VIAL (FIVE THOUSAND) SUBCUT SCH ×3 (05:58→22:09)
[2019-09-17 07:16] LABS: Calcium 8.4 mg/dL (8.6-10.3); Potassium 3.7 mmol/L (3.5-5.0)
[2019-09-17 07:22] LABS: BUN/Creatinine Ratio 10.2 (8-20); EGFR African American 11.2 (>60); EGFR Non-African American 9.3 (>60)
--- NOTE | 2019-09-17 09:39 | PN ---
Subjective Date of Service: 09/17/19 Interval History: Ms. Chaves reports that she is feeling better today. She is having gas and stool through her ileostomy. She has less pain in her abdomen. She vomited once this morning but states that it was all oral contrast. She ate a full liquid diet and felt well thereafter. She is eager to have her diet advanced. She notes that her fistula has been in place for over 2 years. Objective Active Medications: Acetaminophen (Tylenol Tab*) 650 mg PO Q4H PRN Heparin Sodium (Porcine) (Heparin Vial(*)) 5,000 units SUBCUT Q8HR TAINA Ondansetron HCl (Zofran Inj*) 4 mg IV Q4H PRN Oxycodone/Acetaminophen (Percocet 5/325 Tab*) 1 tab PO Q8H PRN Vital Signs: Temp Pulse Resp BP Pulse Ox 98.3 F 74 18 119/64 97 09/17/19 07:10 09/17/19 07:10 09/17/19 07:11 09/17/19 07:10 09/17/19 07:10 Oxygen Devices in Use Now: None Appearance: Female lying in bed in NAD Eyes: No Scleral Icterus Ears/Nose/Mouth/Throat: Mucous Membranes Moist Neck: Trachea Midline Respiratory: Symmetrical Chest Expansion and Respiratory Effort, Clear to Auscultation Cardiovascular: NL Sounds; No Murmurs; No JVD, No Edema Abdominal: - - Soft, mild tenderness with palpation in upper quadrants, air and stool in ileostomy bag Extremities: No Edema Skin: No Rash or Ulcers Neurological: Alert and Oriented x 3, NL Muscle Strength and Tone Nutrition: Taking PO's Result Diagrams: 09/16/19 06:34 09/17/19 06:24 Assess/Plan/Problems-Billing Assessment: Ms. Chaves is a 78 yo F with a PMH of ESRD not on HD but with fistula in place, Crohn's with ileostomy who was admitted on 09/15/19 with abdominal pain, nausea , vomiting thought to be secondary to gastroenteritis with acute on chronic renal failure. - Patient Problems (1) Nausea vomiting and diarrhea Comment: - Resolving, suspect secondary to gastroenteritis. - CT without apparent acute abnormality, showed "moderate distention of small bowel loops, areas of narrowing in right lower quadrant," suspect secondary to history of Crohn's. - Continue zofran prn (2) Acute on chronic renal failure Comment: - Creatinine worse today, ESRD with fistula in place, not on dialysis - Appreciate nephrology consult. Patient was a patient of Dr Gu, is planning to move to [place] next week and does not have nephrology follow up arranged, strongly encouraged her to contact a nephrology office and arrange follow up Thursday. - Continue LR. Start sodium bicarb for acidosis. - Not uremic, electrolytes normal, not fluid overloaded. Does not need dialysis at this point. (3) DVT prophylaxis Comment: - Heparin SQ. (4) Full code status Comment: Status and Disposition: Inpatient. Anticipate discharge to home when medically stable.
[2019-09-17] MEDS ORDERED: Sodium Citrate/Citric Acid* 15 ML UDC PO SCH (10:00)
[2019-09-17] MEDS: Lactated Ringers 1000 ML Bag* 1,000 ML IV SCH (10:57)
[2019-09-17] MEDS: Sodium Bicarbonate (ANTACID)* 650 MG TAB PO SCH ×2 (10:57→15:46)
--- NOTE | 2019-09-17 15:49 | PN ---
Progress Note - Progress Note Date of Service: 09/17/19 Note: Chief complaint: acute kidney injury on severe chronic kidney disease History of present illness: Patient is doing well today. I saw her walking in the hallway and she was doing it without difficulty although she was walking slowly. Stools are still liquid and frequent but improved per patient. Denies chest pain, shortness of breath, nausea, vomiting. She received lactated Ringers. Kidney function is worse with a serum creatinine of 4.59 and a BUN of 47. Her total CO2 has decreased to 16. Blood pressure is on target on no blood pressure medications. Medications: Heparin 5000 units subcu every 8 hours Lactated Ringers thousand milliliters at 75 mL/h Zofran as needed Oxycodone/acetaminophen as needed, Physical exam: Blood pressure is 121/63, oxygen saturation is 96% on room air, respiration rate 16/min, heart rate 79 bpm, temperature 98.4F Constitutional no acute distress pleasant and conversant Chest is clear to auscultation with good respiratory movement Cardiovascular: Heart auscultation shows S1-S2, regular rate and rhythm, no murmur rubs or gallops. No lower extremities edema. Left arm AV graft with good bruit. GI: Abdomen is soft, nondistended, less tender than yesterday. Ileostomy bag in place with liquid content. Skin: Decreased turgor Assessment and plan: Yue Chaves is a very nice 78-year-old woman who was admitted for chief complaint acute kidney injury on chronic kidney disease 1. Acute kidney injury secondary to volume depletion due to GI loss. Her kidney function is not improving when she is not uremic. 2. CKD stage V at baseline- she does not need dialysis now. She has the plan is to move to [place] next weekend. She has the plan to drive there by herself following her sons car. I told her that I do not feel comfortable her driving by herself for such a long distance. She said she will find someone to drive her. 3. Gastroenteritis. Improved 4. Volume depletion. Because of the metabolic acidosis I would a bicarbonate drip. Primary team prefers Ringers lactate with addition of by mouth bicarbonate which is fine. 5. Metabolic acidosis as above 6. DVT prophylaxis and change heparin to 5000 every 12 hours.
[2019-09-17] MEDS: oxyCODONE/Acetamin 5/325 MG* TAB PO PRN (18:51)
[2019-09-18] MEDS: Lactated Ringers 1000 ML Bag* 1,000 ML IV SCH ×2 (02:24→16:07)
[2019-09-18] MEDS: Heparin VIAL(*) 5000 UNITS/ML VIAL (FIVE THOUSAND) SUBCUT SCH ×2 (05:48→20:45)
[2019-09-18 06:22] LABS: Calcium 7.5 mg/dL (8.6-10.3); Potassium 3.2 mmol/L (3.5-5.0)
[2019-09-18 06:28] LABS: BUN/Creatinine Ratio 10.4 (8-20); EGFR African American 11.1 (>60); EGFR Non-African American 9.2 (>60)
[2019-09-18] MEDS: Sodium Bicarbonate (ANTACID)* 650 MG TAB PO SCH ×2 (07:26→20:46)
[2019-09-18] MEDS ORDERED: Potassium Chlor TAB* 20 MEQ TAB.ER PO ONE (08:30)
[2019-09-18] MEDS: Ondansetron INJ* 2 MG/ML VIAL IV PRN ×2 (09:48→15:59)
--- NOTE | 2019-09-18 10:40 | PN ---
Progress Note - Progress Note Date of Service: 09/18/19 Note: Chief complaint: acute kidney injury on severe chronic kidney disease History of present illness: Mrs. Chaves ate her dinner last night without any problems. She had a good night. This morning she vomited after breakfast. She thinks is because of the muffin she tried to eat. She usually does not eat muffins and she knew that probably just cannot get sick from it. She also complains of epigastric pain radiating to the right side. She seems is a lot like the pain she experienced when she had what sounds like a small bowel obstruction. She states that she burps a lot but also passes gas and there is output in her ileostomy bag, which has decreased in volume and is more consistent. She worked on the hallway again. She states that she felt like panting because of her abdominal pain Review of systems: Other than her GI symptoms she states that she voids without any problems. She denies chest pain. She denies headache. She feels thirsty. She denies changes in taste, sleep, or tiredness. Medications: Heparin 5000 units subcu every 8 hours Lactated Ringers thousand milliliters at 75 mL/h Zofran as needed Oxycodone/acetaminophen as needed, Sodium bicarbonate 650 mg by mouth 3 times a day Physical exam: Vital signs: Blood pressure 119/64, heart rate 74 bpm, respiratory rate 18 bpm, oxygen saturation 97% on room air. Temperature 98.3F Constitutional no acute distress pleasant and conversant HEENT: Head is atraumatic normocephalic, mucous membranes do not look dry. Chest is clear to auscultation with good respiratory movement Cardiovascular: Heart auscultation shows S1-S2, regular rate and rhythm, no murmur rubs or gallops. No lower extremities edema. Left arm AV graft with good bruit. GI: Abdomen is soft, nondistended, more tender than yesterday, starting in the epigastrum and radiating to the right. Ileostomy bag in place with more formed content. Skin: Decreased turgor but improved Since yesterday she received 3.3 L and had only 400 mL of urine recorded. Her liquid stools are not recorded. She is based on these recordings in 3 L positive fluid balance Labs show a potassium of 3.2, a bicarbonate of 22, creatinine 4.63, BUN 48, sodium 137. Calcium is 7.5. Hemoglobin 10.6. Assessment and plan: Yue Chaves is a very nice 78-year-old woman who was admitted nausea and vomiting. 1. Acute kidney injury secondary to volume depletion due to GI loss. Her kidney function is not improving but she does not have uremic symptoms. 2. CKD stage V at baseline- she does not need dialysis now. 3. Gastroenteritis. She continues to have abdominal pain which is a little worse than yesterday although her stool output is decreased. 4. Volume depletion, much improved. Because of her nausea and vomiting and agree with continue Ringer lactate 75 cc/h. 5. Metabolic acidosis - resolved. Can decrease serum sodium bicarbonate from 650, 3 times a day to 650 twice a day. 6. DVT prophylaxis and change heparin to 5000 every 12 hours. 7. Hypocalcemia. Please check serum phosphorus tomorrow as well.
--- NOTE | 2019-09-18 11:12 | PN ---
Subjective Date of Service: 09/18/19 Interval History: Pt was nauseated after breakfast today, but no vomiting. 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 noted Objective Active Medications: Acetaminophen (Tylenol Tab*) 650 mg PO Q4H PRN PRN Reason: mild to moderate pain Heparin Sodium (Porcine) (Heparin Vial(*)) 5,000 units SUBCUT Q12HR TAINA Lactated Ringer's (Lactated Ringers 1000 Ml Bag*) 1,000 mls @ 75 mls/hr IV PER RATE TAINA Last Admin: 09/18/19 02:24 Dose: 75 mls/hr Ondansetron HCl (Zofran Inj*) 4 mg IV Q4H PRN PRN Reason: NAUSEA/VOMITING Last Admin: 09/18/19 09:48 Dose: 4 mg Oxycodone/Acetaminophen (Percocet 5/325 Tab*) 1 tab PO Q8H PRN PRN Reason: moderate to severe pain Last Admin: 09/17/19 18:51 Dose: 1 tab Vital Signs - 8 hr 09/18/19 09/18/19 09/18/19 04:07 07:29 07:35 Temperature 97.8 F 98.5 F Pulse Rate 77 84 Respiratory 18 18 18 Rate Blood Pressure 135/58 128/56 (mmHg) O2 Sat by Pulse 96 97 Oximetry Oxygen Devices in Use Now: None Appearance: 78 yo F in nAD, aAOx3 Eyes: No Scleral Icterus, PERRLA Ears/Nose/Mouth/Throat: NL Teeth, Lips, Gums, Mucous Membranes Moist Neck: NL Appearance and Movements; NL JVP, Trachea Midline Respiratory: Symmetrical Chest Expansion and Respiratory Effort, Clear to Auscultation Cardiovascular: NL Sounds; No Murmurs; No JVD, RRR Abdominal: - - soft, mild tenderness in b/l upper quadrants noted, no reboundm, no guarding, BS+ Result Diagrams: 09/16/19 06:34 09/18/19 05:21 Microbiology and Other Data: Microbiology 09/15/19 17:56 Urine Culture - Final Urine Assess/Plan/Problems-Billing Assessment: Ms. Chaves is a 78 yo F with a PMH of ESRD not on HD but with fistula in place, Crohn's with ileostomy who was admitted on 09/15/19 with abdominal pain, nausea , vomiting thought to be secondary to gastroenteritis with acute on chronic renal failure. - Patient Problems (1) Acute on chronic renal failure Comment: - Creatinine worse today, but the level of increase of creatinine is lower, ESRD with fistula in place, not on dialysis - Appreciate nephrology consult. Patient was a patient of Dr Gu, is planning to move to [place] next week and does not have nephrology follow up arranged, strongly encouraged her to contact a nephrology office and arrange follow up Thursday. - Continue LR. cont sodium bicarb for acidosism, but decrease the dose to BID - Not uremic, electrolytes normal, not fluid overloaded. Does not need dialysis at this point. (2) Nausea vomiting and diarrhea Comment: - Resolving, suspect secondary to gastroenteritis. - CT without apparent acute abnormality, showed "moderate distention of small bowel loops, areas of narrowing in right lower quadrant," suspect secondary to history of Crohn's. - Continue zofran prn (3) DVT prophylaxis Comment: - Heparin SQ. (4) Full code status Comment: Status and Disposition: Inpatient. Anticipate discharge to home tomorrow
[2019-09-18] MEDS: Simethicone TAB* 80 MG TAB.CHEW PO PRN ×2 (14:20→20:47)
[2019-09-18] MEDS: oxyCODONE/Acetamin 5/325 MG* TAB PO PRN (16:05)
[2019-09-19] MEDS: Lactated Ringers 1000 ML Bag* 1,000 ML IV SCH (05:53)
[2019-09-19 06:21] LABS: Calcium 7.9 mg/dL (8.6-10.3); Potassium 3.5 mmol/L (3.5-5.0)
[2019-09-19 06:27] LABS: BUN/Creatinine Ratio 11.3 (8-20); EGFR African American 12.2 (>60); EGFR Non-African American 10.1 (>60)
[2019-09-19] MEDS: Sodium Bicarbonate (ANTACID)* 650 MG TAB PO SCH ×2 (08:31→20:19)
[2019-09-19] MEDS: Heparin VIAL(*) 5000 UNITS/ML VIAL (FIVE THOUSAND) SUBCUT SCH ×2 (08:31→20:19)
--- NOTE | 2019-09-19 12:55 | PN ---
Subjective Date of Service: 09/19/19 Interval History: Pt is still c/o abd pain in epigastrium and RUQ, although it's better than before, it's still present. She is anxious to make sure that "everything is okay", before she moves to [place] later in the week. Has had lots of flatulence via stoma. Had no problems with breakfast today and it did not cause her more pain Objective Active Medications: Acetaminophen (Tylenol Tab*) 650 mg PO Q4H PRN PRN Reason: mild to moderate pain Heparin Sodium (Porcine) (Heparin Vial(*)) 5,000 units SUBCUT Q12HR [facility] Last Admin: 09/19/19 08:31 Dose: 5,000 units Lactated Ringer's (Lactated Ringers 1000 Ml Bag*) 1,000 mls @ 75 mls/hr IV PER RATE [facility] Last Admin: 09/19/19 05:53 Dose: 75 mls/hr Ondansetron HCl (Zofran Inj*) 4 mg IV Q4H PRN PRN Reason: NAUSEA/VOMITING Last Admin: 09/18/19 15:59 Dose: 4 mg Oxycodone/Acetaminophen (Percocet 5/325 Tab*) 1 tab PO Q8H PRN PRN Reason: moderate to severe pain Last Admin: 09/18/19 16:05 Dose: 1 tab Simethicone (Mylicon Tab*) 80 mg PO Q6H PRN PRN Reason: gas Last Admin: 09/18/19 20:47 Dose: 80 mg Sodium Bicarbonate (Sodium Bicarbonate (Antacid)*) 650 mg PO BID [facility] Last Admin: 09/19/19 08:31 Dose: 650 mg Vital Signs - 8 hr 09/19/19 09/19/19 07:28 07:46 Temperature 98.4 F Pulse Rate 70 Respiratory 16 16 Rate Blood Pressure 107/51 (mmHg) O2 Sat by Pulse 94 Oximetry Oxygen Devices in Use Now: None Appearance: 78 yo F in nAD, aAOx3 Eyes: No Scleral Icterus, PERRLA Ears/Nose/Mouth/Throat: NL Teeth, Lips, Gums, Mucous Membranes Moist Neck: NL Appearance and Movements; NL JVP, Trachea Midline Respiratory: Symmetrical Chest Expansion and Respiratory Effort, Clear to Auscultation Cardiovascular: NL Sounds; No Murmurs; No JVD, RRR Abdominal: No Hepatosplenomegaly, - - soft, tender in RUQ and epigastrium, no rebound, no guarding, BS+, stoma in place Lymphatic: No Cervical Adenopathy Extremities: No Edema, No Clubbing, Cyanosis Skin: No Rash or Ulcers, No Nodules or Sclerosis Neurological: Alert and Oriented x 3, NL Muscle Strength and Tone Result Diagrams: 09/16/19 06:34 09/19/19 05:18 Microbiology and Other Data: Microbiology 09/15/19 17:56 Urine Culture - Final Urine Assess/Plan/Problems-Billing Assessment: Ms. Chaves is a 78 yo F with a PMH of ESRD not on HD but with fistula in place, Crohn's with ileostomy who was admitted on 09/15/19 with abdominal pain, nausea , vomiting thought to be secondary to gastroenteritis with acute on chronic renal failure. - Patient Problems (1) Nausea vomiting and diarrhea Comment: - Resolving, suspect secondary to gastroenteritis, but pt contnues to be concerned about the pain. will ask GI to see today - CT without apparent acute abnormality, showed "moderate distention of small bowel loops, areas of narrowing in right lower quadrant," suspect secondary to history of Crohn's. (2) Acute on chronic renal failure Comment: - Creatinine improving, pt is to be d/c's on sodium bicarb BID -h/o ESRD with fistula in place, not on dialysis - Appreciate nephrology consult. Patient was a patient of Dr Gu, is planning to move to [place] next week and does not have nephrology follow up arranged, strongly encouraged her to contact a nephrology office and arrange follow up for next Thursday. (3) Full code status Comment: (4) DVT prophylaxis Comment: - Heparin SQ. Status and Disposition: Inpatient. Anticipate discharge to home tomorrow
--- NOTE | 2019-09-19 15:24 | CONS ---
CC: Dr. Wetzel * CONSULTATION REPORT: DATE OF CONSULT: 09/19/19 REQUESTING PHYSICIAN: Dr. Wetzel. INDICATION: History of Crohn's, abdominal pain. NARRATIVE: Mr. Chaves is a 78-year-old female who has a history of end-stage renal disease, a very distant history of Crohn's disease, status post colectomy back in I believe the late 90s, who is admitted to the hospital with abdominal pain, nausea, vomiting, diarrhea. She was diagnosed with gastroenteritis and is slowly improving. Today is day #3, she feels much better today than she did on day #1. She is tolerating a regular diet. She does have some gas and some bloating. She is passing gas and stool into her ostomy bag. She denies any blood in the ostomy bag. The patient states this really does not feel like her Crohn's disease. She has not had a flare in a very long period of time. She denies any medications for Crohn's disease. Currently, she is feeling much better than when she came in. PAST MEDICAL HISTORY: Please see the HPI. PAST SURGICAL HISTORY: Includes hernia repair, colectomy, ileostomy, cholecystectomy, appendectomy, tubal ligation, tonsillectomy. MEDICATIONS: Oxycodone. ALLERGIES: LATEX. FAMILY HISTORY: Positive for coronary artery disease, dementia and breast cancer. SOCIAL HISTORY: No tobacco. Rare alcohol. No IV drug use. PHYSICAL EXAM: Temperature is 98.6, blood pressure is 111/63, pulse is 80. General: Well-appearing female, lying flat in bed, alert, oriented, pleasant, fluent. HEENT: Mucous membranes are moist. No lesions, ulcers, or exudate. Neck: Supple. Trachea is midline. Head is normocephalic, atraumatic. Heart: Regular rate and rhythm. Lungs: Clear to auscultation. Abdomen: Positive bowel sounds. Soft. Stoma present with gas in the bag and stool, mild tenderness with no rebound, no guarding. Skin is warm and dry. DIAGNOSTIC STUDIES/LAB DATA: Of note, her white count is 7.7, hemoglobin is 10.6. BUN is 48, creatinine is 4.26. ASSESSMENT AND PLAN: This is a pleasant 78-year-old female with history of Crohn's, who presents with gastroenteritis. I really do not think that this is her Crohn's disease. This seems to be more of a gastroenteritis that she is recovering from. She did have a CT abdomen and pelvis from the day after admission on the 09/16/19 which showed distention in mid small bowel, possible strictures and transition points consistent with an ileus. At this point, I would recommend conservative treatment. I do not think we need to treat her for Crohn's. We will continue to follow along and please call with any changes. [id number]/[facility] #: [id number] ARIEL
--- NOTE | 2019-09-19 15:49 | PN ---
PROGRESS NOTE: DATE OF VISIT: 09/19/19 SERVICE: [facility] Nephrology. SUBJECTIVE: The patient was seen and examined at bedside. The patient reports feeling nauseous. Vitals and labs have been reviewed. PHYSICAL EXAM: HEENT: NC/AT. Heart: S1, S2 present. Regular at the time of exam. Lungs: Clear to auscultation. Abdomen: Soft. Extremities: No edema. AV fistula with good bruit. ASSESSMENT AND PLAN: 1. Chronic kidney disease stage 4, at baseline. 2. Acute kidney injury on chronic kidney disease in the setting of gastroenteritis and dehydration, this is improving. 3. The patient does not need emergent dialysis currently. 4. However, the patient may need dialysis in the upcoming months based on her progress. The patient already has AV fistula in place and the patient is a patient of Dr. Gu in the past. 5. The patient is moving to [place], [place] with her family in a week. In light of this, discussed with the patient the importance of following up closely with Nephrology there. The patient reports that she has already made contact with the creative technologist in [place] and is planning to see him in 2 weeks. 6. The patient to follow up as an outpatient and will be available for any acute renal needs during the hospital. [id number]/[facility] #: [id number] ARIEL
[2019-09-19] MEDS: oxyCODONE/Acetamin 5/325 MG* TAB PO PRN (15:58)
[2019-09-19] MEDS: Ondansetron INJ* 2 MG/ML VIAL IV PRN (17:01)
[2019-09-19] MEDS: Simethicone TAB* 80 MG TAB.CHEW PO PRN (20:18)
[2019-09-19 23:16] LABS: HIV 4th Generation Nonreactive (Nonreactive)
[2019-09-20 06:33] LABS: BUN/Creatinine Ratio 12.2 (8-20); Calcium 8.3 mg/dL (8.6-10.3); EGFR African American 12.2 (>60); EGFR Non-African American 10.1 (>60); Potassium 3.7 mmol/L (3.5-5.0)
[2019-09-20] MEDS: Sodium Bicarbonate (ANTACID)* 650 MG TAB PO SCH ×2 (10:03→19:55)
[2019-09-20] MEDS: Heparin VIAL(*) 5000 UNITS/ML VIAL (FIVE THOUSAND) SUBCUT SCH ×2 (10:03→19:56)
[2019-09-20] MEDS: Morphine INJ* 2 MG/ML 1 ML SYRINGE (TWO MG - NEW SYRINGE VERSION) IV PRN ×2 (12:32→19:57)
--- NOTE | 2019-09-20 13:09 | PN ---
Subjective Date of Service: 09/20/19 Interval History: HOSPITALIST PROGRESS NOTE Patient seen and examined at bedside. Care reviewed and d/w Sugey Grajeda RN. She had beef strogonoff last night and developed nausea and vomiting. So far she had one poached egg and toast and feels her abdome is really full, but denies N/V at this time. Ostomy output is liquid. Abdominal pain is diffuse, but rated 1/10. Daughter had similar symptoms, but brief and self limited. Family History: Unchanged from Admission Social History: Unchanged from Admission Past Medical History: Unchanged from Admission Objective Active Medications: Acetaminophen (Tylenol Tab*) 650 mg PO Q4H PRN PRN Reason: mild to moderate pain Heparin Sodium (Porcine) (Heparin Vial(*)) 5,000 units SUBCUT Q12HR [facility] Last Admin: 09/20/19 10:03 Dose: 5,000 units Morphine Sulfate (Morphine Inj (Syringe))*) 1 mg IV Q1H PRN PRN Reason: SEVERE PAIN Last Admin: 09/20/19 12:32 Dose: 1 mg Ondansetron HCl (Zofran Inj*) 4 mg IV Q4H PRN PRN Reason: NAUSEA/VOMITING Last Admin: 09/19/19 17:01 Dose: 4 mg Oxycodone/Acetaminophen (Percocet 5/325 Tab*) 1 tab PO Q8H PRN PRN Reason: moderate to severe pain Last Admin: 09/19/19 15:58 Dose: 1 tab Simethicone (Mylicon Tab*) 80 mg PO Q6H PRN PRN Reason: gas Last Admin: 09/19/19 20:18 Dose: 80 mg Sodium Bicarbonate (Sodium Bicarbonate (Antacid)*) 650 mg PO BID [facility] Last Admin: 09/20/19 10:03 Dose: 650 mg Vital Signs - 8 hr 09/20/19 12:32 Respiratory 16 Rate Oxygen Devices in Use Now: None Appearance: Pleasant elderly lady lying in bed in NAD Eyes: No Scleral Icterus Ears/Nose/Mouth/Throat: Mucous Membranes Moist Neck: Trachea Midline Respiratory: Symmetrical Chest Expansion and Respiratory Effort, Clear to Auscultation Cardiovascular: RRR - Normal S1 and S2 Abdominal: - - Soft, NT, mild diffuse tenderness, NG, NR, BS+ hyperactive, stoma in place, ostomy bag with gas and liquid stool Neurological: Alert and Oriented x 3, NL Muscle Strength and Tone Result Diagrams: 09/16/19 06:34 09/20/19 05:55 Assess/Plan/Problems-Billing Assessment: Ms. Chaves is a 78 yo F with a PMH of ESRD not on HD but with fistula in place, Crohn's with ileostomy who was admitted on 09/15/19 with abdominal pain, nausea , vomiting thought to be secondary to gastroenteritis with acute on chronic renal failure. - Patient Problems (1) Nausea vomiting and diarrhea Comment: - Resolving, likely secondary to gastroenteritis. - CT abdome showed "moderate distention of small bowel loops, areas of narrowing in right lower quadrant," suspect secondary to history of Crohn's. - GI input appreciated. - Change diet to low residue diet and continue current management. (2) Acute on chronic renal failure Comment: - Creatinine is stable around 4.2. - Continue sodium bicarb BID - CKD stage IV-V with fistula in place, not on dialysis yet. - Nephrology input appreciated. (3) DVT prophylaxis Comment: - SQ heparin. (4) Full code status Comment: Status and Disposition: Inpatient. Anticipate d/c home in AM if symptoms controlled.
[2019-09-20] MEDS: Ondansetron INJ* 2 MG/ML VIAL IV PRN (18:09)
[2019-09-20] MEDS: NS 0.9% 1000 ML** 1,000 ML IV SCH (19:59)
[2019-09-20 20:35] LABS: Hepatitis B Surface Ab Not Immune (Immune)
[2019-09-20 20:36] LABS: Hepatitis C Antibody Negative (Negative)
[2019-09-20] MEDS: PROCHLORPERAZINE INJ 5 MG/ML 2 ML VIAL IV PRN (21:34)
[2019-09-21] MEDS: Sodium Bicarbonate (ANTACID)* 650 MG TAB PO SCH ×2 (07:53→20:40)
[2019-09-21] MEDS: Heparin VIAL(*) 5000 UNITS/ML VIAL (FIVE THOUSAND) SUBCUT SCH ×2 (07:59→20:38)
[2019-09-21] MEDS: NS 0.9% 1000 ML** 1,000 ML IV SCH (07:59)
[2019-09-21 08:07] LABS: BUN/Creatinine Ratio 12.9 (8-20); Calcium 8.1 mg/dL (8.6-10.3); EGFR African American 12.5 (>60); EGFR Non-African American 10.3 (>60); Potassium 3.5 mmol/L (3.5-5.0)
--- NOTE | 2019-09-21 12:22 | PN ---
Subjective Date of Service: 09/21/19 Interval History: HOSPITALIST PROGRESS NOTE Patient seen and examined at bedside. Care reviewed and d/w Lainey Drake RN. She still has mild diffuse abdominal pain; N/V resolved for now, but had only sips of clear. Continues to pass gas and liquid stool through her ostomy. Family History: Unchanged from Admission Social History: Unchanged from Admission Past Medical History: Unchanged from Admission Objective Active Medications: Acetaminophen (Tylenol Tab*) 650 mg PO Q4H PRN PRN Reason: mild to moderate pain Heparin Sodium (Porcine) (Heparin Vial(*)) 5,000 units SUBCUT Q12HR [facility] Last Admin: 09/21/19 07:59 Dose: 5,000 units Sodium Chloride (Ns 0.9% 1000 Ml) 1,000 mls @ 100 mls/hr IV PER RATE [facility] Last Admin: 09/21/19 07:59 Dose: 100 mls/hr Morphine Sulfate (Morphine Inj (Syringe))*) 1 mg IV Q1H PRN PRN Reason: SEVERE PAIN Last Admin: 09/20/19 19:57 Dose: 1 mg Ondansetron HCl (Zofran Inj*) 4 mg IV Q4H PRN PRN Reason: NAUSEA/VOMITING Last Admin: 09/20/19 18:09 Dose: 4 mg Oxycodone/Acetaminophen (Percocet 5/325 Tab*) 1 tab PO Q8H PRN PRN Reason: moderate to severe pain Last Admin: 09/19/19 15:58 Dose: 1 tab Prochlorperazine Edisylate (Compazine Inj*) 10 mg IV Q6H PRN PRN Reason: NAUSEA/VOMITING Last Admin: 09/20/19 21:34 Dose: 10 mg Simethicone (Mylicon Tab*) 80 mg PO Q6H PRN PRN Reason: gas Last Admin: 09/19/19 20:18 Dose: 80 mg Sodium Bicarbonate (Sodium Bicarbonate (Antacid)*) 650 mg PO BID [facility] Last Admin: 09/21/19 07:53 Dose: Not Given Vital Signs - 8 hr 09/21/19 09/21/19 09/21/19 07:00 08:00 11:00 Temperature 98.3 F 98.4 F Pulse Rate 95 75 Respiratory 20 20 14 Rate Blood Pressure 120/61 142/65 (mmHg) O2 Sat by Pulse 95 97 Oximetry Oxygen Devices in Use Now: None Appearance: Pleasant elderly lady lying in bed in NAD. Eyes: No Scleral Icterus Ears/Nose/Mouth/Throat: Mucous Membranes Moist Neck: Trachea Midline Respiratory: Symmetrical Chest Expansion and Respiratory Effort, Clear to Auscultation Cardiovascular: RRR - Normal S1 and S2 Abdominal: - - Soft, mild distention, mild diffuse abdominal pain R>L, BS+, LLQ ostomy Neurological: Alert and Oriented x 3, NL Muscle Strength and Tone Result Diagrams: 09/16/19 06:34 09/21/19 07:43 Assess/Plan/Problems-Billing Assessment: Ms. Chaves is a 78 yo F with a PMH of ESRD not on HD but with fistula in place, Crohn's with ileostomy who was admitted on 09/15/19 with abdominal pain, nausea , vomiting thought to be secondary to gastroenteritis with acute on chronic renal failure. - Patient Problems (1) Partial small bowel obstruction Comment: - KUB suggestive of SBO. - Still passing liquid stool and gas, but cannot tolerate solid food. - Surgery consult requested - suspect it may be associated with her parastomal hernia. (2) Nausea vomiting and diarrhea Comment: - Suspect her symptoms started with a viral gastroenteritis, progressed with ileus, and now partial SBO. - Continue clear liquid diet as tolerated. (3) Acute on chronic renal failure Comment: - Creatinine is stable around 4.2. - Continue sodium bicarb BID - CKD stage IV-V with fistula in place, not on dialysis yet. - Nephrology input appreciated. (4) DVT prophylaxis Comment: - SQ heparin. (5) Full code status Comment: Status and Disposition: Inpatient.
[2019-09-21] MEDS: Lactated Ringers 1000 ML Bag* 1,000 ML IV SCH (13:59)
[2019-09-21 14:41] LABS: Hepatitis B Surface Antigen Nonreactive (Nonreactive)
--- NOTE | 2019-09-21 18:17 | CONS ---
CC: Dr. Octavio Mckeon * CONSULTATION REPORT: DATE OF CONSULT: 09/21/19 REFERRING PROVIDER: Dr. Dasha Boswell, hospitalist. REASON FOR CONSULT: Abdominal pain, nausea and possible bowel obstruction. HISTORY OF PRESENT ILLNESS: Ms. Yue Chaves is a 78-year-old woman with a remote history of Crohn's disease, end-stage renal disease, not on hemodialysis , who had undergone a total proctocolectomy in year 1999 with a left-sided ileostomy formation. She was admitted 5 days ago with complaints of abdominal pain, nausea, vomiting and diarrhea with a large amounts of fluid and gas through ileostomy, which was located in the left lower quadrant of her abdominal wall. She had undergone a CT scan of the abdomen and pelvis, which showed some mildly dilated small bowel, but contrast extending down to the level of the ileostomy. At that point, initial diagnosis was that of acute gastroenteritis. She has been treated supportively over the past several days, and still having some abdominal discomfort. She has loose watery liquid through the ostomy as well as gas; however, she is still having persistent nausea and not able to tolerate liquids. She underwent a plain x-ray of the abdomen today. I did review both of these images including a CT scan and the plain x-rays. This showed worsening of multiple small bowel loops, which appeared to progress from the prior CT with concern for a partial small bowel obstruction. Consultation was obtained. She has a left arteriovenous fistula in the forearm, which has not been used and has not required a dialysis. She is followed by Dr. Raygoza from Nephrology for this care. Dr. Mena saw her yesterday in consultation, did not feel that this was related to Crohn's disease and did not feel that treatment for Crohn's was indicated. Surgical consultation was obtained today. PAST MEDICAL HISTORY: 1. End-stage renal disease, not on hemodialysis. 2. Crohn's disease as per above. PAST SURGICAL HISTORY: 1. Total proctocolectomy with end ileostomy. 2. Prior to that, she had undergone apparent distal small bowel resection with right-sided ileostomy with subsequent abscess and perforation, thus prompting the above surgery. 3. Open cholecystectomy. 4. Appendectomy. 5. Tubal ligation. 6. Tonsillectomy. MEDICATIONS: Include oxycodone for pain. ALLERGIES: LATEX, MEPERIDINE, SULFA, METRONIDAZOLE, and QUININE. SOCIAL HISTORY: She denies current use of tobacco. She quit drinking alcohol 20 years ago. She does not use illicit drugs. She is retired. She lives with her daughter. Her daughter is her surrogate decision maker. REVIEW OF SYSTEMS: A 14-point review of systems was performed and positives and negatives are in the history of present illness. PHYSICAL EXAM: Temperature 97.9, pulse 100, blood pressure 136/60, oxygen saturation is 98%. In general, she is an elderly female, sitting upright in bed , appears to be in no apparent distress. She is awake, alert, conversive, and quite pleasant. Lungs were clear to auscultation with normal respiratory effort. Heart was regular rate and rhythm without murmurs, rubs, or gallops. Her abdomen is soft and only slightly distended. She has some hyperactive bowel sounds throughout, but they are not high pitched or tinkling. She has a well-healed right subcostal incision without hernia. There is a right lower quadrant transverse incision without hernia. She has a midline incision with possibility of a small incisional hernia around the umbilicus, but is easily reducible. In the left lower quadrant is an ileostomy with appliance in place. There is an obvious large bulge with a peristomal hernia. This is almost completely reducible with persistent pain, although this is somewhat discomfort , but it protrudes immediately after reduction of pressure. There appears to be no evidence of prolapse. There is a moderate amount of brown greenish turbid fluid in the bag itself. IMPRESSION AND PLAN: Remote history of Crohn's disease, status post proctocolectomy with end ileostomy. She has had multiple abdominal operations. She states that she had at least one incisional hernia repaired per the records here on the midline incision. She has also more recently had a parastomal hernia repair with mesh at [facility] in [place] and this is recurred. She has been told that there was not further surgical intervention possible at this time. She was admitted with nausea and vomiting and profuse output from the ileostomy and dehydration. Over the past several days, there has been more concern for a partial small bowel obstruction. I reviewed the CT scan. This does show some thickening of the wall of the distal bowel as it enters the ileostomy and proximal small bowel is somewhat dilated. There does not appear to be a complete obstruction and clinically she has a high grade partial obstruction. At this time, it is difficult to determine if this is a bowel obstruction secondary to the hernia or other adhesive disease or is it a medical diagnosis such as gastroenteritis. At this point, she has no evidence of strangulation and the parastomal hernia is just about completely reducible, I would recommend to continue the present supportive care. Any procedure obviously would be quite extensive and would require a lysis of adhesions and takedown of the ileostomy and relocation on the abdominal wall with repair of the recurrent parastomal hernia. It is not clear as whether she would require dialysis perioperatively and this would need to be discussed with both the hospitalist service and the corking machine operator. For now, if her symptoms do not improve over the next 24 to 48 hours, would recommend repeating of the CT scan with oral and IV contrast. Thank you for the consultation. We will follow her closely with you. [id number]/[facility] #: [id number] ARIEL
[2019-09-22] MEDS: Lactated Ringers 1000 ML Bag* 1,000 ML IV SCH ×2 (00:19→15:08)
--- NOTE | 2019-09-22 07:53 | PN ---
Subjective Date of Service: 09/22/19 Interval History: HOSPITALIST PROGRESS NOTE Patient seen and examined at bedside. She feels better today. Abdominal pain is much improved, no further episodes of N/V. Continues to pass gas and stool through ostomy. Family History: Unchanged from Admission Social History: Unchanged from Admission Past Medical History: Unchanged from Admission Objective Active Medications: Acetaminophen (Tylenol Tab*) 650 mg PO Q4H PRN PRN Reason: mild to moderate pain Heparin Sodium (Porcine) (Heparin Vial(*)) 5,000 units SUBCUT Q12HR [facility] Last Admin: 09/21/19 20:38 Dose: 5,000 units Lactated Ringer's (Lactated Ringers 1000 Ml Bag*) 1,000 mls @ 100 mls/hr IV PER RATE [facility] Last Admin: 09/22/19 00:19 Dose: 100 mls/hr Morphine Sulfate (Morphine Inj (Syringe))*) 1 mg IV Q1H PRN PRN Reason: SEVERE PAIN Last Admin: 09/20/19 19:57 Dose: 1 mg Ondansetron HCl (Zofran Inj*) 4 mg IV Q4H PRN PRN Reason: NAUSEA/VOMITING Last Admin: 09/20/19 18:09 Dose: 4 mg Oxycodone/Acetaminophen (Percocet 5/325 Tab*) 1 tab PO Q8H PRN PRN Reason: moderate to severe pain Last Admin: 09/19/19 15:58 Dose: 1 tab Prochlorperazine Edisylate (Compazine Inj*) 10 mg IV Q6H PRN PRN Reason: NAUSEA/VOMITING Last Admin: 09/20/19 21:34 Dose: 10 mg Simethicone (Mylicon Tab*) 80 mg PO Q6H PRN PRN Reason: gas Last Admin: 09/19/19 20:18 Dose: 80 mg Sodium Bicarbonate (Sodium Bicarbonate (Antacid)*) 650 mg PO BID [facility] Last Admin: 09/21/19 20:40 Dose: Not Given Vital Signs - 8 hr 09/22/19 03:05 Temperature 97.5 F Pulse Rate 81 Respiratory 16 Rate Blood Pressure 113/57 (mmHg) O2 Sat by Pulse 98 Oximetry Oxygen Devices in Use Now: None Appearance: Pleasant elderly lady lying in bed in NAD Eyes: No Scleral Icterus Ears/Nose/Mouth/Throat: Mucous Membranes Moist Neck: Trachea Midline Respiratory: Symmetrical Chest Expansion and Respiratory Effort, Clear to Auscultation Cardiovascular: RRR - Normal S1 and S2 Abdominal: - - Soft, non distended, non tender, BS+, LLQ functioning ostomy Neurological: Alert and Oriented x 3, NL Muscle Strength and Tone Result Diagrams: 09/16/19 06:34 09/21/19 07:43 Microbiology and Other Data: Microbiology 09/15/19 17:56 Urine Culture - Final Urine Assess/Plan/Problems-Billing Assessment: Ms. Chaves is a 78 yo F with a PMH of ESRD not on HD but with fistula in place, Crohn's with ileostomy who was admitted on 09/15/19 with abdominal pain, nausea , vomiting thought to be secondary to gastroenteritis with acute on chronic renal failure. - Patient Problems (1) Partial small bowel obstruction Comment: - KUB suggestive of SBO 09/21/19 - will repeat today. - Clinically improving - may advance diet later today. (2) Nausea vomiting and diarrhea Comment: - Suspect her symptoms started with a viral gastroenteritis, progressed with ileus, and now partial SBO. - Continue clear liquid diet as tolerated. (3) Acute on chronic renal failure Comment: - Creatinine is stable around 4.2. - Continue sodium bicarb BID - CKD stage IV-V with fistula in place, not on dialysis yet. - Nephrology input appreciated. (4) DVT prophylaxis Comment: - SQ heparin. (5) Full code status Comment: Status and Disposition: Inpatient.
[2019-09-22] MEDS: Sodium Bicarbonate (ANTACID)* 650 MG TAB PO SCH ×2 (09:13→19:44)
[2019-09-22] MEDS: Heparin VIAL(*) 5000 UNITS/ML VIAL (FIVE THOUSAND) SUBCUT SCH ×2 (09:13→22:24)
--- NOTE | 2019-09-22 11:53 | PN ---
Progress Note - Progress Note Date of Service: 09/22/19 SOAP: Subjective: Pt seen and examined. feeling a littel better. no abdo pain. some lightheadedness earlyier today Objective: Temp Pulse Resp BP Pulse Ox 98.9 F 78 16 130/61 99 09/22/19 07:46 09/22/19 07:46 09/22/19 07:46 09/22/19 07:46 09/22/19 07:46 abdo: soft/ mild distension. NT ostomy: gas and enteric contents hyperactive BS axr reviewed; result P Assessment: p SBO; improving Plan: advance diet no surgical intervention will continue to follow
[2019-09-22] MEDS: oxyCODONE/Acetamin 5/325 MG* TAB PO PRN (22:25)
[2019-09-23] MEDS: Lactated Ringers 1000 ML Bag* 1,000 ML IV SCH (06:30)
[2019-09-23] MEDS: oxyCODONE/Acetamin 5/325 MG* TAB PO PRN ×2 (07:28→17:06)
--- NOTE | 2019-09-23 07:51 | PN ---
Subjective Date of Service: 09/23/19 Interval History: HOSPITALIST PROGRESS NOTE Patient seen and examined at bedside. Care reviewed and d/w Raissa Drake RN. She is good spirits today. Abdominal pain is much improved, denies N/V, wants to advance her diet. Family History: Unchanged from Admission Social History: Unchanged from Admission Past Medical History: Unchanged from Admission Objective Active Medications: Acetaminophen (Tylenol Tab*) 650 mg PO Q4H PRN PRN Reason: mild to moderate pain Heparin Sodium (Porcine) (Heparin Vial(*)) 5,000 units SUBCUT Q12HR [facility] Last Admin: 09/22/19 22:24 Dose: 5,000 units Lactated Ringer's (Lactated Ringers 1000 Ml Bag*) 1,000 mls @ 100 mls/hr IV PER RATE [facility] Last Admin: 09/23/19 06:30 Dose: 100 mls/hr Morphine Sulfate (Morphine Inj (Syringe))*) 1 mg IV Q1H PRN PRN Reason: SEVERE PAIN Last Admin: 09/20/19 19:57 Dose: 1 mg Ondansetron HCl (Zofran Inj*) 4 mg IV Q4H PRN PRN Reason: NAUSEA/VOMITING Last Admin: 09/20/19 18:09 Dose: 4 mg Oxycodone/Acetaminophen (Percocet 5/325 Tab*) 1 tab PO Q8H PRN PRN Reason: moderate to severe pain Last Admin: 09/23/19 07:28 Dose: 1 tab Prochlorperazine Edisylate (Compazine Inj*) 10 mg IV Q6H PRN PRN Reason: NAUSEA/VOMITING Last Admin: 09/20/19 21:34 Dose: 10 mg Simethicone (Mylicon Tab*) 80 mg PO Q6H PRN PRN Reason: gas Last Admin: 09/19/19 20:18 Dose: 80 mg Sodium Bicarbonate (Sodium Bicarbonate (Antacid)*) 650 mg PO BID [facility] Last Admin: 09/22/19 19:44 Dose: Not Given Vital Signs - 8 hr 09/23/19 09/23/19 09/23/19 00:05 03:25 07:28 Temperature 97.7 F Pulse Rate 71 Respiratory 16 16 16 Rate Blood Pressure 135/64 (mmHg) O2 Sat by Pulse 97 Oximetry Oxygen Devices in Use Now: None Appearance: Pleasant elderly lady lying in bed in NAD Eyes: No Scleral Icterus Ears/Nose/Mouth/Throat: Mucous Membranes Moist Neck: Trachea Midline Respiratory: Symmetrical Chest Expansion and Respiratory Effort, Clear to Auscultation Cardiovascular: RRR - Normal S1 and S2 Abdominal: - - Soft, NT, NG, BS+, LLQ ostomy is functioning Extremities: No Edema Neurological: Alert and Oriented x 3, NL Muscle Strength and Tone Result Diagrams: 09/16/19 06:34 09/21/19 07:43 Assess/Plan/Problems-Billing Assessment: Ms. Chaves is a 78 yo F with a PMH of ESRD not on HD but with fistula in place, Crohn's with ileostomy who was admitted on 09/15/19 with abdominal pain, nausea , vomiting thought to be secondary to gastroenteritis with acute on chronic renal failure. - Patient Problems (1) Partial small bowel obstruction Comment: - KUB suggestive of SBO - follow up shows some improvement. - Clinically she continue to improve - advance to low residue diet. (2) Nausea vomiting and diarrhea Comment: - Suspect her symptoms started with a viral gastroenteritis, progressed with ileus, and now partial SBO. - Advance to low residue diet as tolerated. (3) Acute on chronic renal failure Comment: - Creatinine is stable around 4.2. - Continue sodium bicarb BID - CKD stage IV-V with fistula in place, not on dialysis yet. - Nephrology input appreciated. (4) DVT prophylaxis Comment: - SQ heparin. (5) Full code status Comment: Status and Disposition: Inpatient.
[2019-09-23] MEDS: Sodium Bicarbonate (ANTACID)* 650 MG TAB PO SCH ×2 (07:58→22:23)
[2019-09-23] MEDS: Heparin VIAL(*) 5000 UNITS/ML VIAL (FIVE THOUSAND) SUBCUT SCH ×2 (07:58→22:23)
--- NOTE | 2019-09-23 10:39 | PN ---
Progress Note - Progress Note Date of Service: 09/23/19 SOAP: Subjective: NAD Pt seen and examined, "feeling better" good increaseed output via ostomy, no pain [] Objective: Vital Signs Temp 97.4 F 09/23/19 07:00 Pulse 84 09/23/19 07:00 Resp 18 09/23/19 09:49 BP 144/69 09/23/19 07:00 Pulse Ox 99 09/23/19 07:00 Intake & Output 09/22/19 09/23/19 09/23/19 18:59 06:59 18:59 Intake Total 2580 1308 120 Output Total 500 Balance 2080 1308 120 Intake: IV Fluids 1280 888 LR 1280 888 Oral 1300 420 120 Output: Colostomy 500 Other: Estimated Void Medium Small # Bowel Movements 2 Estimated Stool Amount Large # Voids 1 1 PEX GEN: NAD Chest: CTA CVS: RRR Abd: L sided ostomy stoma pink and healthy good output, peristomal hernia reducible non tender, remaining abdomen exam benign Ext: calves soft non tender [] Assessment: PSBO resolving, tolerating liquid diet [] Plan: repeat abdominal x-ray this morning, advance diet , continue conservative non operative management. All questions answered []
[2019-09-23] MEDS: PROCHLORPERAZINE INJ 5 MG/ML 2 ML VIAL IV PRN (18:03)
[2019-09-24] MEDS: Heparin VIAL(*) 5000 UNITS/ML VIAL (FIVE THOUSAND) SUBCUT SCH (08:39)
[2019-09-24] MEDS: Sodium Bicarbonate (ANTACID)* 650 MG TAB PO SCH (08:39)
[2019-09-24] MEDS: oxyCODONE/Acetamin 5/325 MG* TAB PO PRN (08:45)
[2019-09-24 12:00] VITALS: BP 132/75
--- NOTE | 2019-09-24 18:54 | DS ---
CC: Dr. Mckeon; Dr. Raygoza; Dr. Mena; Dr. Jean Baptiste; Dr. Schumacher DISCHARGE SUMMARY: DATE OF ADMISSION: 09/15/19 DATE OF DISCHARGE: 09/24/19 PRIMARY CARE PROVIDER: Dr. Mckeon. CONSULTING ADZING AND BORING MACHINE OPERATOR: Dr. Raygoza. CONSULTING TECHNICAL MAINTENANCE SPECIALIST: Dr. Mena. CONSULTING SURGEON: Dr. Jean Baptiste. DISCHARGE DIAGNOSES: 1. Viral gastroenteritis, complicated by partial small bowel obstruction. 2. Acute on chronic renal failure. 3. Metabolic acidosis. SECONDARY DIAGNOSES: 1. Chronic kidney disease stage 5, status post right arm fistula. 2. Crohn's disease, status post colectomy and ileostomy. 3. Status post parastomal hernia repair. 4. Status post cholecystectomy. 5. Status post appendectomy. MEDICATION LIST: Oxycodone 5/325 mg p.o. daily. New medications: 1. Sodium bicarb 650 mg p.o. b.i.d. 2. Simethicone 80 mg p.o. q.6 hours p.r.n. gas. 3. Compazine 5 mg p.o. q.6 hours p.r.n. nausea and vomiting. 4. Ondansetron ODT 4 mg p.o. q.8 hours p.r.n. nausea and vomiting. 5. Acetaminophen 650 mg p.o. q.4 hours p.r.n. pain. HOSPITAL COURSE: Mr. Chaves is a 78-year-old female with a past medical history as stated above, who presented to the emergency room with complaints of abdominal pain, nausea, vomiting, and diarrhea. The patient states that her daughter had similar symptoms that were self-limited. She developed thos e symptoms the day prior to admission and was not able to control it at home. She had a CT of the abdomen and pelvis that showed status post colectomy with an ileostomy in the lef t lower quadrant with a parastomal hernia. In addition, there is moderate distention of multiple sma ll bowel loops in the mid and lower abdomen with several areas of narrowing in the right lower quadra nt possibly representing transition points. Large duodenal diverticulum increased in size. The patient was also found to have a creatinine of 3.9 on admission and she was followed by Nephrolog y during the hospital stay. It was felt that her acute on chronic renal failure was secondary to vol ume depletion and recommendation was to continue IV fluids. The patient already has a fistula and wh en comes the time she will be prepared to start hemodialysis. She will be moving to [place] in the near future and she will continue her nephrology followup there. Initially, the impression was that the patient probably had a viral gastroenteritis, but her symptoms persisted and she was seen in consultation by GI (Dr. Mena). His impression was that the patient probably had a gastroenteritis. He did not think that her Crohn's disease was active or that it woul d require therapy at this point. His recommendation was for conservative treatment. The patient continued to have abdominal pain, recurrent nausea and vomiting despite passing gas and l iquid stool through her ostomy. She did have some abdominal distention, for that reason a KUB was pe rformed and it showed findings consistent with a partial small bowel obstruction. Looking back at he r initial CT of the abdomen, Radiology was concerned that the patient maybe had a parastomal hernia a s a source of her bowel obstruction. For that reason, the patient was seen in consultation by [facility] (Dr. Jean Baptiste). He felt that it was difficult to determine if the bowel obstruction was s econdary to the hernia or other adhesive disease or if it was gastroenteritis. Since there was no ev idence of strangulation and the parastomal hernia is just about completely reducible, he recommended continuation of supportive care. The patient was kept n.p.o. and her diet was slowly advanced with i mprovement of her symptoms. She had significant improvement of her pain, resolution of nausea and vo miting, and she continued to pass gas and stool through her ostomy. On 09/24/19, she felt well enoug h to be discharged home. Her creatinine during the hospital stay fluctuated between 3.9 to 4.6. She is also on sodium bicarbonate to buffer her metabolic acidosis and she will follow up with her primar care while in [place], but she is already making arrangements to transfer her care to Dr. Gurmeet king, health underwriter at [facility] in [place], [place], phone number is . PHYSICAL EXAMINATION: Vital Signs: Temperature 97.8, heart rate is 81, respiratory rate is 18, oxyg en saturation is 98% on room air, blood pressure is 132/75. General: The patient is a pleasant, eld erly lady, lying in bed, in no acute distress. CVS: Normal S1, S2. Regular rate and rhythm. Chest : Breath sounds present bilaterally with no added sounds. Abdomen is soft, nontender, nondistended. Multiple old well-healed surgical scars. There is an ileostomy on her left lower quadrant with gas and soft stool in the bag. Bowel sounds are present and normoactive. Extremities: No edema. Neur o: She is alert and oriented x3. Able to move all 4 extremities. DIET: Renal diet, low-fiber. ACTIVITY: As tolerated. DISPOSITION: To home. STATUS WHILE IN THE HOSPITAL: Inpatient. CONDITION AT THE TIME OF DISCHARGE: Fair. Please keep in mind that this is a summarized version of this patient's hospital stay. If you need m ore information, please feel free to call me at [phone] or please obtain full medical records. TIME SPENT: Approximately 45 minutes was spent to complete this discharge. [id number]/[facility] #: [id number]
== END 2019-09-24 12:50 | disposition home or self-care (01) | DRG 391 ==
LOC: ED 08:41 → MED 12:11 → OBSVTOIN 09-16 12:49
PROVIDERS: ADMIT Internal Medicine; ATTEND Internal Medicine
DX: A08.4 Viral intestinal infection, unspecified (principal); N18.6 End stage renal disease; N17.9 Acute kidney failure, unspecified; K56.600 Partial intestinal obstruction, unspecified as to cause; E87.2 Acidosis; K50.90 Crohn's disease, unspecified, without complications; K57.10 Diverticulosis of small intestine without perforation or abscess without bleeding; K43.5 Parastomal hernia without obstruction or gangrene; Z93.2 Ileostomy status; Z79.891 Long term (current) use of opiate analgesic; Z88.2 Allergy status to sulfonamides; Z88.8 Allergy status to other drugs, medicaments and biological substances; Z91.040 Latex allergy status; Z82.49 Family history of ischemic heart disease and other diseases of the circulatory system; Z80.3 Family history of malignant neoplasm of breast; E86.0 Dehydration; E83.51 Hypocalcemia
CPT/HCPCS: 36415; 74018; 74176; 80048; 80053; 81003; 81015; 83605; 83690; 85025; 86140; 86706; 86803; 87045; 87046; 87077; 87086; 87340; 87389; 87899; 99282; A9270-GY; G0378; J0780; J1644; J2270; J2405

== ENCOUNTER 2019-09-28 13:41 | Inpatient (IN) | payer MEDICARE, MEDICAID ==
[2019-09-28] MEDS ORDERED: Acetaminophen TAB* 325 MG PO ONE (14:14)
--- NOTE | 2019-09-28 14:33 | ED ---
Complex/Multi-Sys Presentation - HPI Summary HPI Summary: 78 year old F w hx Crohn's, recent SBO presenting to [facility] accompanied by EMS complains of cough for 3 days and a fever since 4:00 am this morning. State she has had a dry cough at home. EMS placed on O2 for comfort. Pt reports visit to ER last week for partial small bowel obstruction, acute on chronic renal failure , and N/V/D and has not been able to eat or drink since then. Hx of kidney disease and Crohn's disease. Denies hx of heart or lung problems. The patient reports cramping abdominal pain 1/10 in severity. No vomiting today. BM soft, but less diarrhea then when she was admitted last week. - History Of Current Complaint Chief Complaint: EDFever Hx Obtained From: Patient Onset/Duration: Sudden Onset - 4:00 am, Lasting Hours, Still Present Timing: Constant Severity Currently: Mild Severity Initially: Mild Aggravating Factor(s): nothing Alleviating Factor(s): nothing Associated Signs And Symptoms: Positive: Cough, Fever - Allergies/Home Medications Allergies/Adverse Reactions: Allergies Allergy/AdvReac Type Severity Reaction Status Date / Time latex Allergy Rash Verified 08/03/18 09:25 meperidine [From Demerol] Allergy Vomiting Verified 08/03/18 09:26 Sulfa (Sulfonamide AdvReac Mild Nausea Verified 08/03/18 09:25 Antibiotics) metronidazole [From Flagyl] AdvReac Nausea Verified 08/03/18 09:25 quinine AdvReac Nausea And Verified 08/03/18 09:25 Vomiting PMH/Surg Hx/FS Hx/Imm Hx Previously Healthy: Yes Endocrine/Hematology History: Reports: Hx Anemia - takes iron Cardiovascular History: Denies: Hx Pacemaker/ICD Respiratory History: Denies: Other Respiratory Problems/Disorders GI History: Reports: Hx Crohn's Disease, Hx Irritable Bowel, Hx Ileostomy - iliostomy, Other GI Disorders - ileostomy on left side currently, colon resection x3 History: Reports: Hx Chronic Renal Failure, Hx Kidney Infection, Other Problems/Disorders - hx UTI's Musculoskeletal History: Reports: Hx Arthritis - bilateral hands, right ankle Sensory History: Reports: Hx Cataracts - bilateral, no surgery yet, Hx Contacts or Glasses - glasses Denies: Hx Hearing Aid Opthamlomology History: Reports: Hx Cataracts - bilateral, no surgery yet, Hx Contacts or Glasses - glasses Neurological History: Reports: Other Neuro Impairments/Disorders - hx vertigo - evaluated by dr james Psychiatric History: Denies: Hx Panic Disorder - Surgical History Surgery Procedure, Year, and Place: [id number] or 1999. Cyst removed Left breast, cholecystectomy, abdominal hernia repair. T&A, LARGE INTESTINE REMOVED Hx Anesthesia Reactions: No Infectious Disease History: No Infectious Disease History: Denies: Hx Clostridium Difficile, Hx Hepatitis, Hx Human Immunodeficiency Virus (HIV), Hx of Known/Suspected MRSA, Hx Shingles, Hx Tuberculosis, Hx Known/ Suspected VRE, Hx Known/Suspected VRSA, History Other Infectious Disease, Traveled Outside the [place] in Last 30 Days - Family History Known Family History: Positive: Hypertension Negative: Cardiac Disease, Diabetes - Social History Alcohol Use: None Alcohol Amount: hx alcoholism - reports last drink 2014 Hx Substance Use: No Substance Use Type: Reports: None Substance Use Comment - Amount & Last Used: oxycodone Hx Tobacco Use: No Smoking Status (MU): Never Smoked Tobacco Review of Systems Positive: Fever Positive: Cough All Other Systems Reviewed And Are Negative: Yes Physical Exam - Summary Physical Exam Summary: Constitutional: Well-developed, Well-nourished, Alert. (-) Distressed Skin: Warm, Dry HENT: Normocephalic; Atraumatic Eyes: Conjunctiva normal Neck: Musculoskeletal ROM normal neck. (-) JVD, (-) Stridor, (-) Nuchal rigidity Cardio: Rhythm regular, rate normal, Heart sounds normal; Intact distal pulses; Radial pulses are 2+ and symmetric. (-) Murmur Pulmonary/Chest wall: Effort normal. (-) Respiratory distress, (-) Wheezes, (-) Rales Abd: Soft, (-) tenderness, (-) Distension, (-) Guarding, (-) Rebound, colostomy bag Musculoskeletal: (-) Edema Lymph: (-) Cervical adenopathy Neuro: Alert, Oriented x3 Psych: Mood and affect Normal Triage Information Reviewed: Yes Vital Signs On Initial Exam: Initial Vitals Temp Pulse Resp BP Pulse Ox 101.4 F 96 18 134/82 98 09/28/19 13:50 09/28/19 13:50 09/28/19 13:50 09/28/19 13:50 09/28/19 13:50 Vital Signs Reviewed: Yes Procedures - Sedation Patient Received Moderate/Deep Sedation with Procedure: No Diagnostics - Vital Signs Vital Signs Temp Pulse Resp BP Pulse Ox 09/28/19 13:50 101.4 F 96 18 134/82 98 - Laboratory Result Diagrams: 09/29/19 05:44 09/29/19 05:44 Lab Statement: Any lab studies that have been ordered have been reviewed, and results considered in the medical decision making process. - Radiology CXR Radiology Interpretation Completed By: Radiologist Summary of Radiographic Findings: IMPRESSION: NO EVIDENCE FOR ACTIVE CARDIOPULMONARY DISEASE. ED physician has reviewed this report. - CT CT Abdomen CT Interpretation Completed By: Radiologist Summary of CT Findings: IMPRESSION: 1. Stable postoperative changes of total colectomy and stable left lower. quadrant ileostomy. 2. As previously seen, there is small bowel diverticulosis including a giant. ED physician has reviewed this report. - EKG 14:24 Cardiac Rate: NL EKG Rhythm: Sinus Rhythm Summary of EKG Findings: An EKG at 14:24 reveals normal sinus rhythm at rate 79 bpm. LAFB. No STEMI. No acute changes since 07/28/18. Re-Evaluation - Re-Evaluation First Eval Change: Improved - UA w 2+ LE, given ceftriaxone. Complex Multi-Symp Course/Dx Course Of Treatment: 78 y/o F w hx Crohn's s/p ileostomy, recent SBO treated conservatively, p/w fever and cough. - PE well appearing, febrile. Lungs CTAB. Mild abd tenderess, liquid stool in ostomy. - febrile here, labs notable for leukocytosis to 23, normal LA. CXR w/o PNA. Flu neg. Given recent admit for SBO , hx Crohn's CT a/p obtained to look for infectious process. CT shows diverticulitis. Covered w zosyn given flagyl allergy. Admit to [facility]. - Diagnoses Provider Diagnoses: Diverticulitis - Physician Notifications Discussed Care Of Patient With: Pineda Morgan - Admit Time Discussed With Above Provider: 18:35 Instructed by Provider To: Admit As Inpatient Discharge ED - Sign-Out/Discharge Documenting (check all that apply): Patient Departure - Discharge Plan Condition: Stable Disposition: ADMITTED TO [facility] - Billing Disposition and Condition Condition: STABLE Disposition: Admitted to [facility] - Attestation Statements Document Initiated by Scribe: Yes Documenting Scribe: Martha Lu Provider For Whom Sara is Documenting (Include Credential): Naomy Flores MD. Scribe Attestation: I, Martha Lu, scribed for Naomy Flores MD. on at 1057. Scribe Documentation Reviewed: Yes Provider Attestation: The documentation as recorded by the scribe, Martha Lu accurately reflects the service I personally performed and the decisions made by me, Naomy Flores MD. Status of Scribe Document: Viewed
[2019-09-28 14:46] LABS: Hematocrit 31 % (35-47); Hemoglobin 10.2 g/dL (12.0-16.0); Mean Corpuscular HGB Conc 33 g/dL (31-36); Mean Corpuscular Hemoglobin 30 pg (27-31); Mean Corpuscular Volume 91 fL (80-97); Mean Platelet Volume 7.1 fL (7.4-10.4); Platelet Count 353 10^3/uL (150-450); Red Blood Count 3.37 10^6 /uL (3.70-4.87); Red Cell Distribution Width 13 % (10-15)
[2019-09-28 15:03] LABS: Albumin 3.7 g/dL (3.2-5.2); Albumin/Globulin Ratio 1.2 (1-3); EGFR Non-African American 11.6 (>60); Globulin 3.1 g/dL (2-4); Potassium 4.1 mmol/L (3.5-5.0); Total Bilirubin 0.4 mg/dL (0.2-1.0); Total Protein 6.8 g/dL (6.4-8.9)
[2019-09-28 15:04] LABS: Troponin I 0.01 ng/mL (<0.03)
[2019-09-28 15:09] LABS: Influenza A Molecular NEGATIVE (Negative); Influenza B Molecular NEGATIVE (Negative)
[2019-09-28 15:33] LABS: ABS Basophils 0.1 10^3/ul (0-0.2); ABS Lymphocytes 1.3 10^3/ul (1.0-4.8); ABS Monocytes 1.5 10^3/ul (0-0.8); ABS Neutrophils 20.1 10^3/ul (1.5-7.7); Eosinophil % 0.2 %; Lymphocyte % 5.6 %
[2019-09-28] MEDS ORDERED: NS 0.9% 500 ML* 500 ML IV SCH (16:00)
[2019-09-28 17:13] LABS: Urine Appearance Clear; Urine Bilirubin Negative (Negative); Urine Blood Negative (Negative); Urine Color Yellow; Urine Glucose Negative (Negative); Urine Ketones Negative (Negative); Urine Nitrite Negative (Negative); Urine Protein Negative (Negative); Urine Specific Gravity 1.013 (1.010-1.030); Urine Urobilinogen Negative (Negative)
[2019-09-28 17:14] LABS: Urine Bacteria Absent (Absent); Urine Red Blood Cell Absent (Absent); Urine Squamous Epithelial Cell Present (Absent); Urine White Blood Cell 2+(11-20/hpf) (Absent)
[2019-09-28] MEDS ORDERED: cefTRIAXone(*) 1 GM in NS 0.9% 50 ML* 50 ML IVPB ONE (17:53)
[2019-09-28] MEDS: Ondansetron INJ* 2 MG/ML VIAL IV ONE ×2 (18:13→18:52)
[2019-09-28] MEDS ORDERED: Piperacillin/Tazobac ADVAN(*) 3.375 GM in NS 0.9% 100 ML* 100 ML IVPB ONE (18:22)
[2019-09-28] MEDS ORDERED: Ondansetron ODT TAB* 4 MG PO PRN (21:36)
[2019-09-28] MEDS ORDERED: Simethicone TAB* 80 MG TAB.CHEW PO PRN (21:36)
[2019-09-28] MEDS ORDERED: Zosyn per Pharmacy* NOTE FOLLOW UP SCH (22:00)
--- NOTE | 2019-09-28 23:00 | HP ---
CC: Dr. Octavio Mckeon * HISTORY AND PHYSICAL: DATE OF ADMISSION: 09/28/19 PRIMARY CARE PHYSICIAN: Dr. Octavio Mckeon. CHIEF COMPLAINT: Generalized weakness and fever. HISTORY OF PRESENT ILLNESS: This is a 78-year-old female with past medical history of end-stage renal disease, has an AV fistula on her left arm, but not on dialysis, history of Crohn's disease, status post colectomy, ileostomy, was recently admitted for small bowel obstruction and gastroenteritis, was discharged on 09/24/19, comes back to the ER within 4 days with complaints of feeling dizzy, lightheaded and generalized weakness and felt febrile as of this morning. Upon arrival to the ER, the patient did have a fever documented at 101.4. She also has some cough, which is dry, but denies any chest pain. She does have some chronic abdominal pain, but this has not changed, but she also states that she feels very dehydrated as her ileostomy is draining a lot of fluid and she is unable to keep up with the fluid intake and was worried that she would have further kidney injury and this was a secondary reason for why she came to the ER on top of her generalized weakness. She otherwise denies any nausea or vomiting as mentioned. No other burning sensation with urination. No other numbness, tingling, weakness. PAST MEDICAL HISTORY: 1. As mentioned, end-stage renal disease, currently not on dialysis, diagnosed about 10 years ago with chronic kidney disease, progressed to end-stage over 3 years ago with an AV graft placed about a year ago. 2. History of Crohn's disease, status post multiple abdominal surgeries. She also mentions that in August 2018 she has had a concussion from a fall, but no neurological deficit and she has also had history of wrist fracture from a fall. PAST SURGICAL HISTORY: She has had a colectomy, ileostomy, left arm AV graft, hernia repair, cholecystectomy, appendectomy, tubal ligation, adenoidectomy, and tonsillectomy. HOME MEDICATIONS: The patient is currently on: 1. Percocet as needed for pain. 2. Sodium bicarbonate 650 mg oral twice a day. 3. Simethicone 80 mg p.o. q.6 hours p.r.n. 4. Compazine 5 mg q.6 hours p.r.n. 5. Ondansetron 4 mg every 8 hours p.r.n. 6. Tylenol 650 mg p.o. q.4 hours p.r.n. ALLERGIES: The patient is allergic to LATEX, which causes rash. MEPERIDINE causes vomiting. SULFA antibiotics and METRONIDAZOLE both cause nausea and QUININE causes nausea and vomiting. FAMILY HISTORY: Father at age 78 with heart disease. Mother at age 97, had history of dementia and breast cancer. The patient's sister was also diagnosed with breast cancer, but currently is otherwise alive and well. Maternal grandmother was diagnosed with breast cancer and maternal grandfather was diagnosed with heart disease and prostate cancer. SOCIAL HISTORY: She denies any smoking. She did quit drinking alcohol about 20 years ago. Denies any other drug use. She is retired. Used to work at [email or web address]. She lives with her daughter, Margarette, who is her surrogate decision maker and she is otherwise full code. REVIEW OF SYSTEMS: A 14-point review of systems did not reveal any new information other than what is mentioned in the HPI. PHYSICAL EXAMINATION GENERAL: The patient is awake, alert, and oriented x3, did not appear to be in any acute respiratory distress. VITAL SIGNS: T-max was recorded at 101.4 in the ER, BP was noted to be 108/72, heart rate was noted to be around 80, but it did have a peak at 111. Respiration rate 17, saturating 93% on room air. HEAD AND NECK: Atraumatic, normocephalic. Bilateral pupils are reactive. Oral mucosa was dry. Neck is supple. No jugular venous distention. LUNGS: Clear to auscultation bilaterally. No wheezing, rhonchi, or rales. HEART: S1, S2. Regular rate and rhythm. ABDOMEN: Soft. The patient did have ileostomy, which was filled with watery stool and minimally tender. EXTREMITIES: No cyanosis, clubbing, or edema. DIAGNOSTIC STUDIES/LAB DATA: CBC shows elevated white count of 23,000. Hemoglobin and hematocrit was noted to be stable at 10.2 and 31 compared to her baseline, but still minimally anemic. Platelet count was within normal limits. Comprehensive metabolic panel shows elevated BUN at 57 and creatinine elevated at 3.179, but this was much better than her baseline creatinine. Random glucose minimally elevated at 117. Lactic acid normal. LFTs within normal limits. Urinalysis was positive for 2+ leuk esterase, was negative for any nitrite, otherwise clear yellow urine. There were some squamous epithelial cells present. Influenza A and B were both noted to be negative. Portable chest x-ray was read as no evidence of acute coronary or pulmonary disease. CT abdomen and pelvis was read as stable. Postoperative changes of total colectomy and a stable left lower quadrant ileostomy. As previously seen, there is a small bowel diverticulosis including a giant diverticulum involving the jejunum in the left upper quadrant, which measures 4 cm in diameter. On the current exam, however, the abdominal wall thickening and the fat stranding surrounding the giant diverticulum is suspicious for acute jejunal diverticulitis without abscess or signs of gross perforation. IMPRESSION: This is a 78-year-old female with fever, leukocytosis consistent with systemic inflammatory response syndrome, noted to have diverticulitis, likely source of sepsis. ASSESSMENT AND PLAN: 1. Sepsis secondary to acute jejunal diverticulitis. We will start the patient on Zosyn to cover any GI pathogens and follow up patient's blood cultures to titrate antibiotics. In the meantime, we will start the patient on clear liquid diet. 2. Abnormal UA. We will continue the Zosyn that was already started and follow up urine cultures. 3. End-stage renal disease. Currently does not require any dialysis. We will start the patient on IV fluids because the patient has been having increased output from her G-tube. Consider nephrology consultation in the morning if her creatinine worsens or if she has any signs that require dialysis. The patient already has an AV graft on her left arm if dialysis is required. 4. History of Crohn's disease, not on any Crohn's medications. We will consider a GI consult if her symptoms did not improve in the morning. 5. DVT prophylaxis with sequential compression device. 6. Code status. Full code. [id number]/[facility] #: [id number] MTDD
[2019-09-28] MEDS: NS 0.9% 1000 ML** 1,000 ML IV SCH (23:04)
[2019-09-28] MEDS: ZOSYN 3.375 GM Q12H per EXTENDED INFUSION IVPB SCH ×2 (23:34)
[2019-09-29] MEDS: Acetaminophen TAB* 325 MG PO PRN ×2 (02:17→08:51)
[2019-09-29 06:24] LABS: Hematocrit 29 % (35-47); Hemoglobin 9.8 g/dL (12.0-16.0); Mean Corpuscular HGB Conc 34 g/dL (31-36); Mean Corpuscular Hemoglobin 31 pg (27-31); Mean Corpuscular Volume 90 fL (80-97); Mean Platelet Volume 7.4 fL (7.4-10.4); Platelet Count 354 10^3/uL (150-450); Red Cell Distribution Width 13 % (10-15); White Blood Count 23.3 10^3/uL (3.5-10.8)
[2019-09-29 06:29] LABS: ABS Basophils 0.1 10^3/ul (0-0.2); ABS Lymphocytes 1.9 10^3/ul (1.0-4.8); ABS Monocytes 1.6 10^3/ul (0-0.8); ABS Neutrophils 19.6 10^3/ul (1.5-7.7); Eosinophil % 0.2 %
[2019-09-29 06:41] LABS: BUN/Creatinine Ratio 13.2 (8-20); Calcium 7.4 mg/dL (8.6-10.3); EGFR African American 13.4 (>60); EGFR Non-African American 11.1 (>60); Potassium 3.7 mmol/L (3.5-5.0)
[2019-09-29] MEDS: oxyCODONE/Acetamin 5/325 MG* TAB PO SCH (08:50)
[2019-09-29] MEDS: Sodium Bicarbonate (ANTACID)* 650 MG TAB PO SCH ×2 (08:51→19:49)
[2019-09-29] MEDS: NS 0.9% 1000 ML** 1,000 ML IV SCH ×2 (12:01→23:50)
[2019-09-29] MEDS: ZOSYN 3.375 GM Q12H per EXTENDED INFUSION IVPB SCH ×4 (12:01→23:50)
--- NOTE | 2019-09-29 13:33 | PN ---
Subjective Date of Service: 09/29/19 Interval History: Ms. Chaves states she has mild abdominal discomfort. She notes increased ileostomy output yesterday, but she believes this returned to normal and it's appearance is normal. She denies urinary symptoms. She c/o occasional dizziness. Objective Active Medications: Acetaminophen (Tylenol Tab*) 650 mg PO Q4H PRN PRN Reason: mild to moderate pain Last Admin: 09/29/19 08:51 Dose: 650 mg Sodium Chloride (Ns 0.9% 500 Ml*) 500 mls @ 0 mls/hr IV KVO TAINA Sodium Chloride (Ns 0.9% 1000 Ml) 1,000 mls @ 100 mls/hr IV PER RATE [facility] Last Admin: 09/29/19 12:01 Dose: 100 mls/hr Piperacillin Sod/Tazobactam (Sod 3.375 gm/ Sodium Chloride) 100 mls @ 25 mls/ hr IVPB Q12H [facility] Last Admin: 09/29/19 12:01 Dose: 25 mls/hr Ondansetron HCl (Zofran Odt Tab*) 4 mg PO Q8H PRN PRN Reason: NAUSEA/VOMITING Oxycodone/Acetaminophen (Percocet 5/325 Tab*) 1 tab PO DAILY [facility] Last Admin: 09/29/19 08:50 Dose: 1 tab Pharmacy Consult (Zosyn Per Pharmacy*) 1 note FOLLOW UP .ZOSYN PER PHARMACY [facility] Prochlorperazine (Compazine Tab*) 5 mg PO Q6H PRN PRN Reason: NAUSEA Simethicone (Mylicon Tab*) 80 mg PO Q6H PRN PRN Reason: gas Sodium Bicarbonate (Sodium Bicarbonate (Antacid)*) 650 mg PO BID [facility] Last Admin: 09/29/19 08:51 Dose: 650 mg Vital Signs: Temp Pulse Resp BP Pulse Ox 97.9 F 95 16 127/61 99 09/29/19 15:00 09/29/19 15:00 09/29/19 15:53 09/29/19 15:00 09/29/19 15:00 Oxygen Devices in Use Now: None Appearance: Ms. Chaves is an older white female, average weight. She is laying comfortably in bed and appears to be in no acute distress. Eyes: No Scleral Icterus, PERRLA Ears/Nose/Mouth/Throat: NL Teeth, Lips, Gums, Clear Oropharnyx, Mucous Membranes Moist Neck: NL Appearance and Movements; NL JVP, Trachea Midline Respiratory: Symmetrical Chest Expansion and Respiratory Effort, Clear to Auscultation Cardiovascular: NL Sounds; No Murmurs; No JVD, RRR, No Edema Abdominal: - - BS hypoactive; nontender to palpation; obvious L-sided hernia that is reducible; ileostomy in place with minimal output currently Extremities: No Edema, No Clubbing, Cyanosis Skin: No Rash or Ulcers Neurological: Alert and Oriented x 3 Result Diagrams: 09/29/19 05:44 09/29/19 05:44 Assess/Plan/Problems-Billing Assessment: 78 yof PMHX ESRD with fistula, no HD, h/o Crohn's s/p colectomy, iliostomy presents with sepsis 2/2 acute jejunal diverticulitis. - Patient Problems (1) Sepsis Comment: -likely 2/2 jejunal diverticulitis -leukocytosis stable; afebrile today, wihtout tachycardia today -continue zosyn -BC pending (2) Acute diverticulitis Comment: -jejunal diverticulitis noted on CT -without abscess -pain improving; ileostomy output decreasing -leukocytosis stable; afebrile -continue zosyn -continue IVF (3) Abnormal urinalysis Comment: -2+ LE on UA -GN bacilli on cx; awaiting further details -continue zosyn (4) ESRD (end stage renal disease) Comment: -fistula in place -not on HD -continue to monitor (5) H/O Crohn's disease Comment: -colectomy with ileostomy (6) DVT prophylaxis Comment: -SCDs in place (7) Full code status Comment: Status and Disposition: Inpatient. Discharge when stable.
[2019-09-30 05:42] LABS: ABS Basophils 0.1 10^3/ul (0-0.2); ABS Eosinophils 0.1 10^3/ul (0-0.6); ABS Lymphocytes 1.3 10^3/ul (1.0-4.8); ABS Monocytes 1.1 10^3/ul (0-0.8); ABS Neutrophils 13.9 10^3/ul (1.5-7.7); Eosinophil % 0.8 %; Hematocrit 27 % (35-47); Lymphocyte % 8.1 %; Mean Corpuscular HGB Conc 34 g/dL (31-36); Mean Corpuscular Hemoglobin 31 pg (27-31); Mean Corpuscular Volume 90 fL (80-97); Mean Platelet Volume 7.5 fL (7.4-10.4); Platelet Count 264 10^3/uL (150-450); Red Blood Count 2.94 10^6 /uL (3.70-4.87); Red Cell Distribution Width 13 % (10-15); White Blood Count 16.6 10^3/uL (3.5-10.8)
[2019-09-30 06:04] LABS: BUN/Creatinine Ratio 12.5 (8-20); Calcium 6.8 mg/dL (8.6-10.3); EGFR African American 14.1 (>60); EGFR Non-African American 11.7 (>60); Potassium 3.4 mmol/L (3.5-5.0)
[2019-09-30] MEDS: Sodium Bicarbonate (ANTACID)* 650 MG TAB PO SCH ×2 (10:01→20:32)
[2019-09-30] MEDS: oxyCODONE/Acetamin 5/325 MG* TAB PO SCH (10:01)
--- NOTE | 2019-09-30 10:17 | PN ---
Subjective Date of Service: 09/30/19 Interval History: No abdominal pain since admission. No nausea. Hungry. No sx's. Subj at her baseline. Objective Active Medications: Acetaminophen (Tylenol Tab*) 650 mg PO Q4H PRN PRN Reason: mild to moderate pain Last Admin: 09/29/19 08:51 Dose: 650 mg Piperacillin Sod/Tazobactam (Sod 3.375 gm/ Sodium Chloride) 100 mls @ 25 mls/ hr IVPB Q12H [facility] Last Admin: 09/29/19 23:50 Dose: 25 mls/hr Ondansetron HCl (Zofran Odt Tab*) 4 mg PO Q8H PRN PRN Reason: NAUSEA/VOMITING Oxycodone/Acetaminophen (Percocet 5/325 Tab*) 1 tab PO DAILY [facility] Last Admin: 09/30/19 10:01 Dose: 1 tab Pharmacy Consult (Zosyn Per Pharmacy*) 1 note FOLLOW UP .ZOSYN PER PHARMACY [facility] Prochlorperazine (Compazine Tab*) 5 mg PO Q6H PRN PRN Reason: NAUSEA Simethicone (Mylicon Tab*) 80 mg PO Q6H PRN PRN Reason: gas Sodium Bicarbonate (Sodium Bicarbonate (Antacid)*) 650 mg PO BID [facility] Last Admin: 09/30/19 10:01 Dose: 650 mg Vital Signs - 8 hr 09/30/19 09/30/19 03:15 10:01 Temperature 97.8 F Pulse Rate 81 Respiratory 16 16 Rate Blood Pressure 113/55 (mmHg) O2 Sat by Pulse 97 Oximetry Oxygen Devices in Use Now: None Appearance: Alert, partly up in bed. In good spirits. Looks comfortable. Eyes: No Scleral Icterus Ears/Nose/Mouth/Throat: Clear Oropharnyx, Mucous Membranes Moist Abdominal: NL Sounds; No Tenderness; No Distention, No Hepatosplenomegaly, - - ileostomy LUQ Extremities: No Edema, No Clubbing, Cyanosis, - Skin: No Rash or Ulcers, No Nodules or Sclerosis, - Neurological: Alert and Oriented x 3, NL Sensation Result Diagrams: 09/30/19 04:53 09/30/19 04:53 Microbiology and Other Data: Microbiology 09/28/19 17:00 Urine Culture - Final Urine Klebsiella Oxytoca 09/28/19 22:12 Aerobic Blood Culture - Preliminary Blood Venous No Growth Day 1 Anaerobic Blood Culture - Preliminary No Growth Day 1 09/28/19 22:12 Aerobic Blood Culture - Preliminary Blood Venous No Growth Day 1 Anaerobic Blood Culture - Preliminary No Growth Day 1 Assess/Plan/Problems-Billing Assessment: 78 yof PMHX ESRD with fistula, no HD, h/o Crohn's s/p colectomy, iliostomy presents with sepsis 2/2 acute jejunal diverticulitis. - Patient Problems (1) Sepsis Current Visit: Yes Status: Acute Comment: -? 2/2 jejunal diverticulitis vs UTI -leukocytosis, HR, and temp improved 09/30 -continue zosyn -BC pending (2) ESRD (end stage renal disease) Current Visit: Yes Status: Acute Code(s): N18.6 - END STAGE RENAL DISEASE SNOMED Code(s): 29102453 Comment: stable creatinine, stop IV fluids 09/30. -fistula in place -not on HD renal diet ordered 09/30. (3) H/O Crohn's disease Current Visit: Yes Status: Acute Code(s): Z87.19 - PERSONAL HISTORY OF OTHER DISEASES OF THE DIGESTIVE SYSTEM SNOMED Code(s): 559000824643381 Comment: -colectomy with ileostomy Status and Disposition: Inpatient. Discharge when stable.
[2019-09-30] MEDS: ZOSYN 3.375 GM Q12H per EXTENDED INFUSION IVPB SCH ×2 (13:34)
[2019-10-01] MEDS: Sodium Bicarbonate (ANTACID)* 650 MG TAB PO SCH (08:23)
[2019-10-01] MEDS: oxyCODONE/Acetamin 5/325 MG* TAB PO SCH (08:23)
[2019-10-01] MEDS: ZOSYN 3.375 GM Q12H per EXTENDED INFUSION IVPB SCH ×4 (12:29)
[2019-10-01 13:24] VITALS: BP 115/58
--- NOTE | 2019-10-01 13:39 | PN ---
Progress Note - Progress Note Date of Service: 10/01/19 Note: TIme spent on discharge including exam of patient, discussion with patient, nurse, review of EHR and preparation of discharge documents 35 minutes.
--- NOTE | 2019-10-01 14:12 | DS ---
CC: Dr. Mckeon * DISCHARGE SUMMARY: DATE OF ADMISSION: 09/28/19 DATE OF DISCHARGE: 10/01/19 HISTORY OF PRESENT ILLNESS/HOSPITAL COURSE: This 78-year-old woman presented with generalized weakness and fever. The history is detailed in the admission note. She has an ileostomy related to prior Crohn disease. She has chronic liquid stools from the ileostomy. She has chronic abdominal pain, which really has not changed much. CT scan showed small-bowel diverticulosis including a giant diverticulum in the jejunum 4 cm in diameter. There was some abdominal wall thickening and fat stranding around the diverticulum. The clinical diagnosis was jejunal diverticulitis. The patient was treated with intravenous antibiotics. She did quite well in the hospital. Temperature initially was 101.4. It was 100 on 09/29/19 at 7:15 p.m., but below 99 thereafter until the time of discharge. She felt quite well. Her appetite was good. She will take 7 days of amoxicillin/clavulanate at home. FINAL DIAGNOSES: 1. Sepsis due to jejunal diverticulitis. 2. End-stage renal disease, not on hemodialysis. 3. History of Crohn disease. DISCHARGE MEDICATIONS: 1. Amoxicillin/clavulanate 875 mg b.i.d. for 7 days. 2. Oxycodone/acetaminophen 5/325 as prescribed. 3. Acetaminophen 650 mg every 4 hours p.r.n. 4. Ondansetron ODT 4 mg every 8 hours p.r.n. 5. Simethicone 80 mg every 6 hours p.r.n. 6. Sodium bicarbonate 650 mg b.i.d. 7. Prochlorperazine 5 mg every 6 hours p.r.n. CONDITION ON DISCHARGE: Improved. DISPOSITION ON DISCHARGE: Discharged home. [id number]/[facility] #: [id number] MTDD
[2019-10-01] MEDS ORDERED: Amoxicillin/Clavulanate TAB* 875 MG PO SCH (21:00)
== END 2019-10-01 15:00 | disposition home or self-care (01) | DRG 871 ==
LOC: ED 13:41 → MEDTELE 21:32
PROVIDERS: ADMIT Internal Medicine; ATTEND Internal Medicine
DX: A41.9 Sepsis, unspecified organism (principal); N18.6 End stage renal disease; K57.12 Diverticulitis of small intestine without perforation or abscess without bleeding; G89.29 Other chronic pain; R10.9 Unspecified abdominal pain; M19.042 Primary osteoarthritis, left hand; M19.041 Primary osteoarthritis, right hand; M19.071 Primary osteoarthritis, right ankle and foot; R82.90 Unspecified abnormal findings in urine; Z93.2 Ileostomy status; Z79.899 Other long term (current) drug therapy; Z90.49 Acquired absence of other specified parts of digestive tract; Z91.040 Latex allergy status; Z88.8 Allergy status to other drugs, medicaments and biological substances; Z88.2 Allergy status to sulfonamides; Z88.1 Allergy status to other antibiotic agents
CPT/HCPCS: 36415; 71046; 74176; 80048; 80053; 81003; 81015; 83605; 83880; 84484; 85025; 87040; 87077; 87086; 87186; 93005; 99284; A9270-GY; J0696; J2405; J2543

== ENCOUNTER 2019-10-05 14:16 | Emergency (ER) | payer MEDICARE, MEDICAID ==
--- NOTE | 2019-10-05 14:41 | ED ---
GI/ HPI - HPI Summary HPI Summary: 78 year old female presents to the ED with a chief complaint of dehydration starting today. Patient [place] [facility], discharged 4 days ago. She is worried because she has been unable to urinate for several days. Patient denies shortness of breath, fever, chills, abdominal pain, nausea , vomiting, diarrhea, or chest pain. Patient has an ileostomy. History of Crohn' s disease. Stage 4 renal disease. - History of Current Complaint Chief Complaint: EDWeakness Time Seen by Provider: 10/05/19 14:31 Stated Complaint: GENERAL WEAKNESS PER EMS Hx Obtained From: Patient Onset/Duration: Started Hours Ago, Still Present Timing: Constant Severity: Mild Current Severity: Mild Pain Intensity: 0 Location of Pain: None Associated Signs and Symptoms: Positive: Other: - unable to void Additional Signs & Symptoms: Positive: Other: - recent diverticulitis (4 days ago) Aggravating Factor(s): Nothing - Additional Pertinent History Primary Care Physician: [id number] - Allergy/Home Medications Allergies/Adverse Reactions: Allergies Allergy/AdvReac Type Severity Reaction Status Date / Time latex Allergy Rash Verified 10/05/19 14:24 meperidine [From Demerol] Allergy Vomiting Verified 10/05/19 14:24 Sulfa (Sulfonamide AdvReac Mild Nausea Verified 10/05/19 14:24 Antibiotics) metronidazole [From Flagyl] AdvReac Nausea Verified 10/05/19 14:24 quinine AdvReac Nausea And Verified 10/05/19 14:24 Vomiting PMH/Surg Hx/FS Hx/Imm Hx Endocrine/Hematology History: Reports: Hx Anemia - takes iron Cardiovascular History: Denies: Hx Pacemaker/ICD Respiratory History: Denies: Other Respiratory Problems/Disorders GI History: Reports: Hx Crohn's Disease, Hx Irritable Bowel, Hx Ileostomy - iliostomy, Other GI Disorders - ileostomy on left side currently, colon resection x3 History: Reports: Hx Chronic Renal Failure, Hx Kidney Infection, Other Problems/Disorders - hx UTI's Musculoskeletal History: Reports: Hx Arthritis - bilateral hands, right ankle Sensory History: Reports: Hx Cataracts - bilateral, no surgery yet, Hx Contacts or Glasses - glasses Denies: Hx Hearing Aid Opthamlomology History: Reports: Hx Cataracts - bilateral, no surgery yet, Hx Contacts or Glasses - glasses Neurological History: Reports: Other Neuro Impairments/Disorders - hx vertigo - evaluated by dr james Psychiatric History: Denies: Hx Panic Disorder - Surgical History Surgery Procedure, Year, and Place: [id number] or 1999. Cyst removed Left breast, cholecystectomy, abdominal hernia repair. T&A, LARGE INTESTINE REMOVED Hx Anesthesia Reactions: No Infectious Disease History: No Infectious Disease History: Denies: Hx Clostridium Difficile, Hx Hepatitis, Hx Human Immunodeficiency Virus (HIV), Hx of Known/Suspected MRSA, Hx Shingles, Hx Tuberculosis, Hx Known/ Suspected VRE, Hx Known/Suspected VRSA, History Other Infectious Disease, Traveled Outside the [place] in Last 30 Days - Family History Known Family History: Positive: Hypertension Negative: Cardiac Disease, Diabetes - Social History Alcohol Use: Rare Alcohol Amount: hx alcoholism - reports last drink 2014 Hx Substance Use: No Substance Use Type: Reports: Prescribed Substance Use Comment - Amount & Last Used: oxycodone Hx Tobacco Use: No Smoking Status (MU): Never Smoked Tobacco Review of Systems Positive: Other - dehydrated. Negative: Fever, Chills Negative: Chest Pain Negative: Shortness Of Breath Negative: Abdominal Pain, Vomiting, Diarrhea, Nausea Positive: other - inability to void All Other Systems Reviewed And Are Negative: Yes Physical Exam - Summary Physical Exam Summary: VITAL SIGNS: Reviewed. GENERAL: Elderly fragile female who is lying comfortable in the stretcher. Patient is not in any acute respiratory distress. HEAD AND FACE: No signs of trauma. No ecchymosis, hematomas or skull depressions. No sinus tenderness. EYES: PERRLA, EOMI x 2, No injected conjunctiva, no nystagmus. EARS: Hearing grossly intact. Ear canals and tympanic membranes are within normal limits. MOUTH: Oropharynx within normal limits. Oral mucosa dry. NECK: Supple, trachea is midline, no adenopathy, no JVD, no carotid bruit, no c- spine tenderness, neck with full ROM. CHEST: Symmetric, no tenderness at palpation. LUNGS: Clear to auscultation bilaterally. No wheezing or crackles. CVS: Regular rate and rhythm, S1 and S2 present, no murmurs or gallops appreciated. ABDOMEN: Soft, non-tender. No signs of distention. No rebound, no guarding, and no masses palpated. Bowel sounds are normal. Ileostomic bag contains stool. EXTREMITIES: FROM in all major joints, no edema, no cyanosis or clubbing. NEURO: Alert and oriented x 3. No acute neurological deficits. Speech is normal and follows commands. SKIN: Dry and warm. Decreased turgor. Triage Information Reviewed: Yes Vital Signs On Initial Exam: Initial Vitals Temp Pulse Resp BP Pulse Ox 98.1 F 81 22 132/75 97 10/05/19 14:20 10/05/19 14:20 10/05/19 14:20 10/05/19 14:20 10/05/19 14:20 Vital Signs Reviewed: Yes Procedures - Sedation Patient Received Moderate/Deep Sedation with Procedure: No Diagnostics - Vital Signs Vital Signs Temp Pulse Resp BP Pulse Ox 10/05/19 14:20 98.1 F 81 22 132/75 97 - Laboratory Result Diagrams: 10/05/19 14:56 10/05/19 14:56 Lab Statement: Any lab studies that have been ordered have been reviewed, and results considered in the medical decision making process. - EKG 1533 Cardiac Rate: NL - 89 bpm EKG Rhythm: Sinus Rhythm ST Segment: Normal Summary of EKG Findings: EKG at 1533 reveals normal sinus rhythm at [address] elevation. An ED physician has reviewed and interpreted this EKG. GIGU Course/Dx - Course Assessment/Plan: 78 year old female presents to the ED with a chief complaint of dehydration starting today. Patient was [place] [facility] [place], discharged 4 days ago. She is worried because she has been unable to urinate for several days. Patient denies shortness of breath, fever, chills, abdominal pain, nausea, vomiting, diarrhea, or chest pain. Patient has an ileostomy. History of Crohn's disease. Stage 4 renal disease. Blood work at her baseline with slight anemia, increased platelets 2 170, anion gap 16, BUN is 68, creatinine 4.62, glucose is 116, calcium 7.1, CRP of 31.5. Lipase is 210. Patient does not have any abdominal pain. Therefore, Patient remained stable. She does not have any complaints of abdominal pain. The patient is eating and drinking without any nausea or vomiting. Patient also was given ibuprofen his for the slight dehydration. I discussed all the findings and test results with the patient. Patient was instructed to return to the emergency room immediately if any of the symptoms return or worsen. Plan of care was discussed with the patient and understands and agrees. All questions were answered at patient satisfaction. There were no further complaints or concerns. Lung exam before discharge: CTA B/L. Good air exchange. No wheezing or crackles heard. CVS: S1 and S2 present. No murmurs appreciated. Patient is alert and oriented x 3. Patient is hemodynamically stable. Patient will be discharged home with follow up PCP in the next 2-3 days - Diagnoses Provider Diagnoses: Dehydration Discharge ED - Sign-Out/Discharge Documenting (check all that apply): Patient Departure - discharge - Discharge Plan Condition: Stable Disposition: HOME Patient Education Materials: Dehydration (ED) Referrals: Octavio Mckeon MD [Primary Care Provider] - Additional Instructions: Follow up with your primary care provider in 2-3 days. Return to the Emergency Department if you experience new or worsened symptoms. - Billing Disposition and Condition Condition: STABLE Disposition: Home - Attestation Statements Document Initiated by Rellibe: Yes Documenting Scribe: Dharmesh Moraes Provider For Whom Sara is Documenting (Include Credential): Reese Diaz MD Scribe Attestation: Dharmesh Laureano scrstaceyed for Reese Diaz MD on 10/06/19 at 1018. Scribe Documentation Reviewed: Yes Provider Attestation: The documentation as recorded by the Dharmesh valdes accurately reflects the service I personally performed and the decisions made by Reese hardin MD Status of Scribe Document: Viewed
[2019-10-05 15:07] LABS: ABS Basophils 0.1 10^3/ul (0-0.2); ABS Eosinophils 0.1 10^3/ul (0-0.6); ABS Lymphocytes 1.5 10^3/ul (1.0-4.8); ABS Monocytes 0.6 10^3/ul (0-0.8); ABS Neutrophils 8.3 10^3/ul (1.5-7.7); Hematocrit 27 % (35-47); Hemoglobin 9.3 g/dL (12.0-16.0); Lymphocyte % 13.8 %; Mean Corpuscular HGB Conc 35 g/dL (31-36); Mean Corpuscular Hemoglobin 31 pg (27-31); Mean Corpuscular Volume 89 fL (80-97); Mean Platelet Volume 7.1 fL (7.4-10.4); Platelet Count 470 10^3/uL (150-450); Red Blood Count 2.99 10^6 /uL (3.70-4.87); Red Cell Distribution Width 13 % (10-15); White Blood Count 10.5 10^3/uL (3.5-10.8)
[2019-10-05] MEDS ORDERED: NS 0.9% 1000 ML** 1,000 ML IV SCH (15:15)
[2019-10-05 15:24] LABS: BUN/Creatinine Ratio 14.7 (8-20); EGFR Non-African American 9.2 (>60); Potassium 4.3 mmol/L (3.5-5.0)
[2019-10-05 15:25] LABS: Albumin 3.7 g/dL (3.2-5.2); Albumin/Globulin Ratio 1.1 (1-3); C Reactive Protein 31.58 mg/L (<8.01); Calcium 7.1 mg/dL (8.6-10.3); EGFR African American 11.2 (>60); Globulin 3.5 g/dL (2-4); Total Bilirubin 0.3 mg/dL (0.2-1.0); Total Protein 7.2 g/dL (6.4-8.9)
[2019-10-05 18:16] VITALS: BP 112/69
== END 2019-10-05 18:05 | disposition home or self-care (01) ==
LOC: ED 14:16
DX: E86.0 Dehydration (principal); Z88.5 Allergy status to narcotic agent; Z88.2 Allergy status to sulfonamides; Z88.8 Allergy status to other drugs, medicaments and biological substances; Z88.1 Allergy status to other antibiotic agents; Z91.040 Latex allergy status; N18.4 Chronic kidney disease, stage 4 (severe); D63.1 Anemia in chronic kidney disease; Z93.2 Ileostomy status
CPT/HCPCS: 36415; 80053; 83605; 83690; 83880; 85025; 86140; 93005; 96360; 96361; 99283

== ENCOUNTER 2019-12-28 07:48 | Day surgery (SDC) | payer MEDICARE, MEDICAID ==
[~2019-12-28 07:48] MED LIST changes: +Acetaminophen TAB* 325 MG PO PRN; -Buffered Lidocaine 0.9% SYRIN* 5 ML/SYR SYRINGE INTRADERM ONE; +Buffered Lidocaine 1% SYRIN* 1 ML/SYRINGE INTRADERM ONE; -Famotidine IV* 10 MG/ML 2 ML (20 mg) IV ONE
[2019-12-28] MEDS ORDERED: Midazolam* 1 MG/ML 5 ML VIAL (5 MG) ONE (09:03)
[2019-12-28] MEDS ORDERED: fentaNYL* 50 MCG/ML 2 ML VIAL (100 MCG VIAL) ONE (09:03)
[2019-12-28] MEDS ORDERED: Proparacaine 0.5% OPHTH.SOL* 15 ML BTL ONE (09:09)
[2019-12-28] MEDS ORDERED: Lidocaine 1% MPF ** 5 ML VIAL ONE (09:09)
[2019-12-28] MEDS ORDERED: Cyclopentolate 1% OPTH.SOL* 2 ML BTL ONE (09:09)
[2019-12-28] MEDS ORDERED: Lidocaine 2% w/ EPI 1:200,000* 20 ML SDV VIAL ONE (09:09)
[2019-12-28] MEDS ORDERED: Povidone Iodine 5% OPTH* 30 ML BTL ONE (09:09)
[2019-12-28] MEDS ORDERED: Ketorolac 0.5% OPHTH (NF) 0.5 % 5 ML BTL ONE (09:09)
[2019-12-28] MEDS ORDERED: Phenylephrine OPHTH SOL 2.5%* 2 ML ONE (09:09)
[2019-12-28] MEDS ORDERED: Neomycin/Polymy/Dex OPTH.SUSP* MAXITROL 0.1% 5 ML ONE (09:09)
[2019-12-28 13:10] VITALS: BP 116/68
--- NOTE | 2019-12-28 16:00 | OP ---
OPERATIVE NOTE: DATE OF OPERATION: 12/28/19 - [facility] DATE OF : 44 SURGEON: Andres Bess M.D. PREOPERATIVE DIAGNOSIS: Cataract, left eye. POSTOPERATIVE DIAGNOSIS: Cataract, left eye. OPERATIVE PROCEDURE: Extracapsular cataract extraction with intraocular lens implant, left eye. PROCEDURE: The patient was brought to the operating room after being given 1/2 % Alcaine with epinephrine drops in the preoperative area. The eye was prepped and draped in the usual sterile fashion. Sterile drape and eyelid speculum were placed. Again, topical 1/2% Alcaine with epinephrine was given. A paracentesis incision was made at the 3 o'clock position with the No.75 blade. Clear cornea incision 2.2 x 2.2-mm was created at the 6 o'clock position starting at the anterior limbus using the 2.2-mm keratome. The anterior chamber was irrigated with 0.4 mL of 1% non-preservative intracameral lidocaine and filled with DisCoVisc. A capsulorrhexis was completed using the cystotome and the Utrata forceps. Hydrodissection was performed with balanced salt solution. The lens nucleus was removed with the Phacoemulsification handpiece without incident. Cortex was removed with the irrigation-aspiration handpiece. The capsular bag was re-inflated using DisCoVisc and an [id number] implant was inserted with the shooter. The irrigation-aspiration handpiece was used to remove all residual DisCoVisc. The eye was refilled with balanced salt solution and the wound checked and found to be watertight. Topical Maxitrol drops were given. [id number]/[facility] #: [id number] [facility]
== END 2019-12-28 11:00 | disposition home or self-care (01) ==
LOC: OREAST 07:48
PROVIDERS: ATTEND Specialist
DX: H25.812 Combined forms of age-related cataract, left eye (principal); M15.0 Primary generalized (osteo)arthritis; N18.4 Chronic kidney disease, stage 4 (severe); J44.9 Chronic obstructive pulmonary disease, unspecified
CPT/HCPCS: A9270-GY; J2250; J3010; V2632

== ENCOUNTER 2020-01-04 08:12 | Day surgery (SDC) | payer MEDICARE, MEDICAID ==
[2020-01-04] MEDS ORDERED: Midazolam* 1 MG/ML 5 ML VIAL (5 MG) ONE (09:52)
[2020-01-04] MEDS ORDERED: Lidocaine 1% MPF ** 5 ML VIAL ONE (10:27)
[2020-01-04] MEDS ORDERED: Lidocaine 2% w/ EPI 1:200,000* 20 ML SDV VIAL ONE (10:27)
[2020-01-04] MEDS ORDERED: Ketorolac 0.5% OPHTH (NF) 0.5 % 5 ML BTL ONE (10:27)
[2020-01-04] MEDS ORDERED: Cyclopentolate 1% OPTH.SOL* 2 ML BTL ONE (10:27)
[2020-01-04] MEDS ORDERED: acetaZOLAMIDE TAB* 250 MG ONE (10:27)
[2020-01-04] MEDS ORDERED: Phenylephrine OPHTH SOL 2.5%* 2 ML ONE (10:27)
[2020-01-04] MEDS ORDERED: Povidone Iodine 5% OPTH* 30 ML BTL ONE (10:27)
[2020-01-04] MEDS ORDERED: Neomycin/Polymy/Dex OPTH.SUSP* MAXITROL 0.1% 5 ML ONE (10:27)
[2020-01-04] MEDS ORDERED: Proparacaine 0.5% OPHTH.SOL* 15 ML BTL ONE (10:28)
[2020-01-04 10:58] VITALS: BP 116/69
--- NOTE | 2020-01-04 17:00 | OP ---
DATE OF OPERATION: 01/04/2020 - [facility] DATE OF : 1940. SURGEON: Andres Bess M.D. PREOPERATIVE DIAGNOSIS: Cataract right eye. POSTOPERATIVE DIAGNOSIS: Cataract right eye. OPERATIVE PROCEDURE: Extracapsular cataract extraction with intraocular lens implant right eye. DESCRIPTION OF PROCEDURE: The patient was brought to the operating room after being given 1/2% Alcaine with epinephrine drops in the preoperative area. The eye was prepped and draped in the usual sterile fashion. Sterile drape and eyelid speculum were placed. Again, topical 1/2% Alcaine with epinephrine was given. A paracentesis incision was made at the 9 o'clock position with the No.75 blade. Clear cornea incision 2.2 x 2.2-mm was created at the 12 o'clock position starting at the anterior limbus using the 2.2-mm keratome. The anterior chamber was irrigated with 0.4 mL of 1% non-preservative intracameral lidocaine and filled with DisCoVisc. A capsulorrhexis was completed using the cystotome and the Utrata forceps. Hydrodissection was performed with balanced salt solution. The lens nucleus was removed with the Phacoemulsification handpiece without incident. Cortex was removed with the irrigation-aspiration handpiece. The capsular bag was re-inflated using DisCoVisc and an [id number] implant was inserted with the shooter. The irrigation-aspiration handpiece was used to remove all residual DisCoVisc. The eye was refilled with balanced salt solution and the wound checked and found to be watertight. Topical Maxitrol drops were given. [id number]/[facility] #: [id number] [facility]
== END 2020-01-04 11:14 | disposition home or self-care (01) ==
LOC: OREAST 08:12
PROVIDERS: ATTEND Specialist
DX: H25.811 Combined forms of age-related cataract, right eye (principal); M15.9 Polyosteoarthritis, unspecified; N18.4 Chronic kidney disease, stage 4 (severe); K50.90 Crohn's disease, unspecified, without complications; K21.9 Gastro-esophageal reflux disease without esophagitis; J44.9 Chronic obstructive pulmonary disease, unspecified; Z88.2 Allergy status to sulfonamides; Z88.8 Allergy status to other drugs, medicaments and biological substances; Z88.1 Allergy status to other antibiotic agents; Z91.040 Latex allergy status; Z87.891 Personal history of nicotine dependence
CPT/HCPCS: A9270-GY; J2250; V2632

== ENCOUNTER 2020-01-08 14:46 | Emergency (ER) | payer MEDICARE, MEDICAID ==
[2020-01-08] MEDS ORDERED: NS 0.9% 1000 ML** 1,000 ML IV ONE (15:02)
--- OUTSIDE RECORDS SUMMARY | 2020-01-08 15:07 | XMS REPORT | Continuity of Care Document ---
:1940 External Reference #:[id number] Author Name Andres Bess M.D. Address [address] [place] [address] Care Team Providers Name Role Phone Octavio Mckeon M.D. - Family Medicine Care Team Information [employer] Teacher Babita Fernandez O.D. - Lead Ios Developer Care Team Information [employer]nic [employer] Teacher Problems Active Problems Provider Date Arthritis Onset: Chronic kidney disease stage 4 Onset: Presence of intraocular lens Andres Bess M.D. Onset: 12/29/2019 Combined form of senile cataract Andres Bess M.D. Onset: 12/22/2019 Social History Type Date Description Comments Sex Unknown ETOH Use Denies alcohol use Tobacco Use Start: Unknown Patient has never smoked Recreational Drug Use Denies Drug Use Smoking Status Reviewed: 12/29/19 Patient has never smoked Allergies, Adverse Reactions, Alerts Active Allergies Reaction Severity Comments Date Demerol Nausea, Vomitting Severe 12/22/2019 Cat Dander Severe 12/22/2019 Quinine Dizziness, Nausea, Vomitting Severe 12/22/2019 Latex 12/26/2019 Medications Active Medications SIG Qnty Indications Ordering Date Provider Artificial Tears Andres Bess, 12/28/2019 1-0.3% M.D. Solution Ciprofloxacin HCL instill one drop 5ml Andres Bess, 12/26/2019 0.3% Solution in the left eye M.D. three times a day, start the day before surgery Ketorolac Tromethamine use one drop in 10ml Andres Bess, 12/26/2019 0.5% the left eye M.D. Solution three times a day, start the day before surgery Prednisolone Acetate 1 drops left eye 10ml Andres Bess, 12/26/2019 1% three times a M.D. Suspension day. taper as directed Oxycodone-Acetaminophen as needed Unknown 5-325mg Tablets Prochlorperazine Maleate Take One Tablet Unknown 5mg By Mouth Three Tablets Times A Day as Needed For Nausea Immunizations Description No Information Available Vital Signs Description No Information Available Results Description No Information Available Procedures Date Code Description Status 12/28/2019 05872 Extracapsular Cataract Extraction W/Intraocular Lens Completed 12/26/2019 45775 Ophthalmic Biometry Completed 12/26/2019 90340 Ophthalmic Biometry Completed 12/26/2019 03850 Est Patient Intermediate Exam Completed 12/22/2019 28015 New Patient Comprehensive Exam Completed Medical Devices Description No Information Available Encounters Description No Information Available Assessments Date Code Description Provider 12/29/2019 H25.811 Combined forms of age-related cataract, Andres Bess M.D. right eye 12/29/2019 Z96.1 Presence of intraocular lens Andres Bess M.D. 12/28/2019 H25.812 Combined forms of age-related cataract, left Andres Bess M.D. eye 12/26/2019 H25.812 Combined forms of age-related cataract, left Andres Bess M.D. eye 12/26/2019 H25.811 Combined forms of age-related cataract, Andres Bess M.D. right eye 12/22/2019 H25.813 Combined forms of age-related cataract, Andres Bess M.D. bilateral Plan of Treatment Future Appointment(s):01/24/2020 2:00 pm - Andres Bess M.D. at [facility], 01/05/2020 8:45 am - Andres Bess M.D. at [facility], 01/04/2020 7:00 am - Andres Bess M.D. at [facility], 2019 - Andres Bess M.D.H25.811 Combined forms of age-related cataract, right eyeComments:Smoking can increase the risk of developing or worsening any eye related disease, as well as affect your overall health. If you are a smoker , we strongly recommend that you quit.If you are not a smoker, we strongly recommend that you do not start. Dense cataract in the right eye.Follow up:For surgery. Please keep post op appointments as scheduled.DFE/IOPZ96.1 Presence of intraocular lensComments:The artifical lens implant in your left eye appears to be stable. Since this is the first day aftersurgery, your left eye is still dilated and the vision will still be slightly blurry. The dilation will go down over the next day or two. Continue taking your eye drops as directed on the surgical calendar. If you have any questions, please call our office. Functional Status Description No Information Available Mental Status Description No Information Available Referrals Description No Information Available
--- OUTSIDE RECORDS SUMMARY | 2020-01-08 15:07 | XMS REPORT | Continuity of Care Document ---
:1940 External Reference #:[id number] Author Name Soumya Rivera MD (transmitted by agent of provider Babita Juarez) Address [address] , [address] [place] [address] Care Team Providers Name Role Phone Octavio Mckeon MD - Family Medicine Care Team Information Area Plant Manager Problems Active Problems Provider Date Closed fracture of distal end of radius Eliane Merino M.D. Onset: 01/14/2019 Chronic kidney disease stage 5 Soumya Rivera MD Onset: 10/25/2019 Total colectomy Soumya Rivera MD Onset: 10/25/2019 Social History Type Date Description Comments Sex Unknown ETOH Use Denies alcohol use Tobacco Use Start: Unknown Patient has never smoked Smoking Status Reviewed: 10/25/19 Patient has never smoked Exercise Type/Frequency Exercises sporadically Allergies, Adverse Reactions, Alerts Active Allergies Reaction Severity Comments Date Demerol 01/14/2019 Quinine 01/14/2019 Latex 10/25/2019 Medications Active Medications SIG Qnty Indications Ordering Date Provider Prochlorperazine Maleate take one tab 45tabs R11.2 Soumya Rivera MD 2018 5mg three times a Tablets day as needed for nausea Magnesium 27 1 by mouth per Unknown 500(27Mg) mg day Tablets Tart Fish Advanced daily Unknown Capsules Oxycodone HCL 1 - 2 tabs as Unknown 5mg Capsules needed Immunizations Description No Information Available Vital Signs Date Vital Result Comment 11/24/2019 2:43pm Weight 130.00 lb 11/24/2019 2:29pm Weight 130.00 lb Heart Rate 83 /min BP Systolic Sitting 135 mmHg BP Diastolic Sitting 77 mmHg O2 % BldC Oximetry 96 % Results Test Acquired Date Facility Test Result H/L Range Note Basic Metabolic 11/17/2019 [facility] Sodium 139 mmol/L Normal 135-[address] [place] [address] [phone] Potassium 3.4 mmol/L Low 3.5-5.0 Chloride 101 mmol/L Normal 101-111 Co2 Carbon Dioxide 20 mmol/L Low 22-32 Anion Gap 18 mmol/L High 2-11 Glucose 148 mg/dL High 70-100 Blood Urea Nitrogen 54 mg/dL High 6-24 Creatinine 4.11 mg/dL High 0.51-0.95 BUN/Creatinine Ratio 13.1 Normal 8-20 Calcium 7.1 mg/dL Low 8.6-10.3 Egfr Non- 10.5 >60 Egfr 12.7 >60 1 Laboratory test 11/17/2019 [facility] Phosphorus 6.0 mg/dL High 2.5-5.[address] [place] [address] [phone] CBC Auto Diff 11/17/2019 [facility] White Blood 8.5 Normal 3.5 -10.[address] Count 10^3/[place] [address] [phone] Red Blood Count 3.49 10^6/uL Low 3.70-4.87 Hemoglobin 10.9 g/dL Low 12.0-16.0 Hematocrit 32 % Low 35-47 Mean Corpuscular Volume 91 fL Normal 80-97 Mean Corpuscular Hemoglobin 31 pg Normal 27-31 Mean Corpuscular HGB Conc 35 g/dL Normal 31-36 Red Cell Distribution Width 14 % Normal 10-15 Platelet Count 357 10^3/uL Normal 150-450 Mean Platelet Volume 7.7 fL Normal 7.4-10.4 Abs Neutrophils 6.0 10^3/uL Normal 1.5-7.7 Abs Lymphocytes 1.7 10^3/uL Normal 1.0-4.8 Abs Monocytes 0.4 10^3/uL Normal 0-0.8 Abs Eosinophils 0.2 10^3/uL Normal 0-0.6 Abs Basophils 0.1 10^3/uL Normal 0-0.2 Abs Nucleated RBC 0.0 10^3/uL Granulocyte % 71.3 % Lymphocyte % 20.4 % Monocyte % 5.2 % Eosinophil % 2.2 % Basophil % 0.9 % Nucleated Red Blood Cells % 0.0 Iron & Iron Binding 11/17/2019 [facility] Iron 69 g/dL Normal 50-[address] [place] [address] [phone] Unsaturated Iron Binding < 348 g/dL Total Iron Binding Capacity 363 g/dL Normal 250-450 Transferrin 259 mg/dL Normal 203-362 % Iron Saturation 19 % Normal 15-55 Laboratory test 11/17/2019 [facility] Ferritin 110.0 ng/mL Normal 11-[address] [place] [address] [phone] Vitamin B12 137 pg/mL Low 180-914 2 Folic Acid (Folate) 17.07 ng/mL >3.99 1 Because ethnic data is not always readily available, this report includes an eGFR for both -Americans and non- Americans. The National Kidney Disease Education Program (NKDEP) does not endorse the use of the MDRD equation for patients that are not between the ages of 18 and 70, are , have extremes of body size, muscle mass, or nutritional status, or are non- or non-. According to the National Kidney Foundation, irrespective of diagnosis, the stage of the disease is based on the level of kidney function: Stage Description GFR(mL/min/1.73 m(2)) 1 Kidney damage with normal or decreased GFR 90 2 Kidney damage with mild decrease in GFR 60-89 3 Moderate decrease in GFR 30-59 4 Severe decrease in GFR 15-29 5 Kidney failure <15 (or dialysis) 2 Normal Range 180 to 914 Indeterminate Range 145 to 180 Deficient Range <145 Procedures Description No Information Available Medical Devices Description No Information Available Encounters Type Date Location Provider Dx Diagnosis Office Visit 10/25/2019 [facility] Soumya Rivera MD N18.5 Chronic kidney 1:30p disease, stage 5 R11.2 Nausea with vomiting, unspecified R19.7 Diarrhea, unspecified D63.1 Anemia in chronic kidney disease Office Visit 10/01/2019 10:54a [facility] Lazarus A41.9 Sepsis, Assoc,pc Delaney Griggs. unspecified Hospitalists organism K57.12 Dvtrcli of sm int w/o perforation or abscess w/o bleeding N18.6 End stage renal disease Office Visit 09/30/2019 10:53a [facility] Lazarus K57.12 Dvtrcli of sm int Assoc,michelle Griggs M.D. w/o perforation Hospitalists or abscess w/o bleeding N18.6 End stage renal disease Office Visit 09/29/2019 [facility] Sonal K57.12 Dvtrcli of sm 10:53a Assmichelle ardon PA int w/o Hospitalists perforation or abscess w/o bleeding R82.90 Unspecified abnormal findings in urine N18.6 End stage renal disease Office Visit 09/28/2019 [facility] Liss Rashard, A41.9 Sepsis, 10:52a michelle Martínez M.D. unspecified Hospitalists organism K57.12 Dvtrcli of sm int w/o perforation or abscess w/o bleeding R82.90 Unspecified abnormal findings in urine N18.6 End stage renal disease Office Visit 09/24/2019 11:28a [facility] Dasha K56.609 Unsp intestnl Assoc,michelle Leos M.D. obst, unsp as Hospitalists to partial versus complete obst N17.9 Acute kidney failure, unspecified N18.5 Chronic kidney disease, stage 5 Office Visit 09/23/2019 [facility] Gurmeet Oakley K56.600 Partial 7:00a [facility] PA-C intestinal obstruction, unspecified as to cause Office Visit 09/23/2019 [facility] Dasha K56.609 Unsp intestnl 11:28a Assocmichelle M.D. obst, unsp as to Hospitalists partial versus complete obst N18.5 Chronic kidney disease, stage 5 Office Visit 09/22/2019 [facility] Lambert Padilla K56.600 Partial intestinal 7:00a [facility] MD, obstruction, FACS unspecified as to cause Office Visit 09/22/2019 [facility] K56.609 Unsp intestnl 11:27a Assmichelle ardon M.D. obst, unsp as to Hospitalists partial versus complete obst N18.5 Chronic kidney disease, stage 5 Office Visit 09/21/2019 11:27a [facility] K56.609 Unsp intestnl Assmichelle ardon M.D. obst, unsp as Hospitalists to partial versus complete obst N18.5 Chronic kidney disease, stage 5 Office Visit 09/21/2019 [facility] Tito Plata K56.600 Partial 7:00a [facility] Baptiste MD intestinal obstruction, unspecified as to cause Office Visit 09/20/2019 [facility] Dasha Leos, N17.9 Acute kidney 11:27a michelle Martínez M.D. failure, Hospitalists unspecified N18.6 End stage renal disease R11.2 Nausea with vomiting, unspecified R10.9 Unspecified abdominal pain Office Visit 09/19/2019 [facility] Liss Wetzel, N17.9 Acute kidney 11:26a michelle Martínez M.D. failure, Hospitalists unspecified N18.6 End stage renal disease R19.7 Diarrhea, unspecified R10.13 Epigastric pain Office Visit 09/19/2019 12:44p [facility]phrology Bri N17.9 Acute kidney MD Idalmis failure, unspecified N18.4 Chronic kidney disease, stage 4 (severe) Office Visit 09/18/2019 [facility] Liss Wetzel, N17.9 Acute kidney 11:26a michelle Martínez M.D. failure, Hospitalists unspecified N18.6 End stage renal disease R11.2 Nausea with vomiting, unspecified R19.7 Diarrhea, unspecified Office Visit 09/18/2019 8:52a [facility] Soumya Rivera, N17.9 Acute kidney failure, unspecified N18.5 Chronic kidney disease, stage 5 Office Visit 09/17/2019 11:26a [facility] Cassie Roche, N17.9 Acute kidney Assoc,pc N.P. failure, Hospitalists unspecified N18.6 End stage renal disease R11.2 Nausea with vomiting, unspecified R19.7 Diarrhea, unspecified Office Visit 09/17/2019 8:52a [facility] Nephrology Somuya Rivera, N17.9 Acute kidney failure, unspecified N18.5 Chronic kidney disease, stage 5 Office Visit 09/16/2019 11:25a [facility] Cassie Roche, N17.9 Acute kidney Assoc,pc N.P. failure, Hospitalists unspecified R19.7 Diarrhea, unspecified R10.9 Unspecified abdominal pain N18.6 End stage renal disease Office Visit 09/16/2019 8:51a [facility] Soumya Rivera, N17.9 Acute kidney MD failure, unspecified N18.5 Chronic kidney disease, stage 5 E87.2 Acidosis [facility] 11:25a Assoc,JOSEPH Munoz failure, Hospitalists unspecified R10.9 Unspecified abdominal pain R11.2 Nausea with vomiting, unspecified R19.7 Diarrhea, unspecified Assessments Date Code Description Provider 11/24/2019 N18.5 Chronic kidney disease, stage 5 Soumya Rivera MD 10/25/2019 N18.5 Chronic kidney disease, stage 5 Soumya Rivera MD 10/25/2019 R11.2 Nausea with vomiting, unspecified Soumya Rivera MD 10/25/2019 R19.7 Diarrhea, unspecified Soumya Rivera MD 10/25/2019 D63.1 Anemia in chronic kidney disease Soumya Rivera MD 10/01/2019 A41.9 Sepsis, unspecified organism Lazarus Griggs M.D. 10/01/2019 K57.12 Diverticulitis of small intestine without Lazarus Griggs M.D. perforation or abscess without bleeding 10/01/2019 N18.6 End stage renal disease Lazarus Griggs M.D. 09/30/2019 K57.12 Diverticulitis of small intestine without Lazarus Griggs M.D. perforation or abscess without bleeding 09/30/2019 N18.6 End stage renal disease Lazarus Griggs M.D. 09/29/2019 K57.12 Diverticulitis of small intestine without JOSEPH Alejandre perforation or abscess without bleeding 09/29/2019 R82.90 Unspecified abnormal findings in urine JOSEPH Alejandre 09/29/2019 N18.6 End stage renal disease JOSEPH Alejandre 09/28/2019 A41.9 Sepsis, unspecified organism Liss Wetzel M.D. 09/28/2019 K57.12 Diverticulitis of small intestine without Liss Wetzel M.D. perforation or abscess without bleeding 09/28/2019 R82.90 Unspecified abnormal findings in urine Liss Wetzel M.D. 09/28/2019 N18.6 End stage renal disease Liss Wetzel M.D. 09/24/2019 K56.609 Unspecified intestinal obstruction, Dasha Leos M.D. unspecified as to partial versus complete obstruction 09/24/2019 N17.9 Acute kidney failure, unspecified Dasha Leos M.D. 09/24/2019 N18.5 Chronic kidney disease, stage 5 Dasha Leos M.D. 09/23/2019 K56.609 Unspecified intestinal obstruction, Dasha Leos M.D. unspecified as to partial versus complete obstruction 09/23/2019 K56.600 Partial intestinal obstruction, Gurmeet Johnson PA-C unspecified as to cause 09/23/2019 N18.5 Chronic kidney disease, stage 5 Dasha Leos M.D. 09/22/2019 K56.609 Unspecified intestinal obstruction, Dasha Leos M.D. unspecified as to partial versus complete obstruction 09/22/2019 K56.600 Partial intestinal obstruction, Lambert Hawkins MD, FACS unspecified as to cause 09/22/2019 N18.5 Chronic kidney disease, stage 5 Dasha Leos M.D. 09/21/2019 K56.609 Unspecified intestinal obstruction, Dasha Leos M.D. unspecified as to partial versus complete obstruction 09/21/2019 K56.600 Partial intestinal obstruction, Tito Jean Baptiste MD unspecified as to cause 09/21/2019 N18.5 Chronic kidney disease, stage 5 Dasha Leos M.D. 09/20/2019 N17.9 Acute kidney failure, unspecified Dasha Leos M.D. 09/20/2019 N18.6 End stage renal disease Dasha Leos M.D. 09/20/2019 R11.2 Nausea with vomiting, unspecified Dasha Leos M.D. 09/20/2019 R10.9 Unspecified abdominal pain Dasha Leos M.D. 09/19/2019 N17.9 Acute kidney failure, unspecified Bri Raygoza MD 09/19/2019 N17.9 Acute kidney failure, unspecified Liss Wetzel M.D. 09/19/2019 N18.4 Chronic kidney disease, stage 4 (severe) Bri Raygoza MD 09/19/2019 N18.6 End stage renal disease Liss Wetzel M.D. 09/19/2019 R19.7 Diarrhea, unspecified Liss Wetzel M.D. 09/19/2019 R10.13 Epigastric pain Liss Wetzel M.D. 09/18/2019 N17.9 Acute kidney failure, unspecified Liss Wetzel M.D. 09/18/2019 N17.9 Acute kidney failure, unspecified Soumya Rivera MD 09/18/2019 N18.6 End stage renal disease Liss Wetzel M.D. 09/18/2019 N18.5 Chronic kidney disease, stage 5 Soumya Rivera MD 09/18/2019 R11.2 Nausea with vomiting, unspecified Liss Wetzel M.D. 09/18/2019 R19.7 Diarrhea, unspecified Liss Wetzel M.D. 09/17/2019 N17.9 Acute kidney failure, unspecified Cassie Roche N.P. 09/17/2019 N17.9 Acute kidney failure, unspecified Soumya Rivera MD 09/17/2019 N18.6 End stage renal disease Cassie Roche N.P. 09/17/2019 N18.5 Chronic kidney disease, stage 5 Soumya Rivera MD 09/17/2019 R11.2 Nausea with vomiting, unspecified Cassie Roche, N.P. 09/17/2019 R19.7 Diarrhea, unspecified Cassie Roche, N.P. 09/16/2019 N17.9 Acute kidney failure, unspecified Cassie Roche, N.P. 09/16/2019 R19.7 Diarrhea, unspecified Cassie Roche N.P. 09/16/2019 N17.9 Acute kidney failure, unspecified Soumya Rivera MD 09/16/2019 R10.9 Unspecified abdominal pain Cassie Roche N.P. 09/16/2019 N18.6 End stage renal disease Cassie Roche N.P. 09/16/2019 N18.5 Chronic kidney disease, stage 5 Soumya Rivera MD 09/16/2019 E87.2 Acidosis Soumya Rivera MD 09/15/2019 N17.9 Acute kidney failure, unspecified JOSEPH Alejandre 09/15/2019 R10.9 Unspecified abdominal pain JOSEPH Alejandre 09/15/2019 R11.2 Nausea with vomiting, unspecified JOSEPH Alejandre 09/15/2019 R19.7 Diarrhea, unspecified JOSEPH Alejandre Plan of Treatment Future Appointment(s):01/31/2020 2:30 pm - Soumya Rivera MD at [facility] [id number] /30/2020 - Soumya Rivera MDN18.5 Chronic kidney disease, stage 5Follow up:2 months - cut out high phos foods, please see handout - take 1 - 2 fiber pills daily ( Sennakot) Functional Status Description No Information Available Mental Status Description No Information Available Referrals Description No Information Available
--- OUTSIDE RECORDS SUMMARY | 2020-01-08 15:07 | XMS REPORT | Continuity of Care Document ---
:1940 External Reference #:[id number] Author Name Andres Bess M.D. (transmitted by agent of provider Sandrita Huitron) Address [address] [place] [address] Care Team Providers Name Role Phone Octavio Mckeon M.D. - Family Medicine Care Team Information Press Operator [phone] Babita Fernandez O.D. - Connection Worker Care Team Information Press Operator [phone] Problems Active Problems Provider Date Arthritis Onset: Chronic kidney disease stage 4 Onset: Combined form of senile cataract Andres Bess M.D. Onset: 12/22/2019 Presence of intraocular lens Andres Bess M.D. Onset: 12/29/2019 Social History Type Date Description Comments Sex Unknown ETOH Use Denies alcohol use Tobacco Use Start: Unknown Patient has never smoked Recreational Drug Use Denies Drug Use Smoking Status Reviewed: 01/05/20 Patient has never smoked Allergies, Adverse Reactions, [...] day before surgery Prednisolone Acetate 1 drops right 10ml Andres Bess, 12/26/2019 1% eye three times M.D. Suspension a day. taper as directed Oxycodone-Acetaminophen as needed Unknown 5-325mg Tablets Prochlorperazine Maleate Take One Tablet Unknown 5mg By Mouth Three Tablets Times A Day as Needed For Nausea Immunizations Description No Information Available Vital Signs Description No Information Available Results Description No Information Available Procedures Date Code Description Status 01/04/2020 09495 Extracapsular Cataract Extraction W/Intraocular Lens Completed 12/28/2019 02747 Extracapsular Cataract Extraction W/Intraocular Lens Completed 12/26/2019 61802 Ophthalmic Biometry Completed 12/26/2019 28289 Ophthalmic Biometry Completed 12/26/2019 60648 Est Patient Intermediate Exam Completed 12/22/2019 88184 New Patient Comprehensive Exam Completed Medical Devices Description No Information Available Encounters Description No Information Available Assessments Date Code Description Provider 01/05/2020 Z96.1 Presence of intraocular lens Andres Bess M.D. 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 right eye 12/29/2019 H25.811 Combined forms of age-related cataract, [...] Bess M.D. at Andres Bess MD, 01/05/2020 - Andres Bess M.D.Z96.1 Presence of intraocular lensComments:Smoking can increase the risk of developing or worsening any eye related disease, as well as affect your overall health. If you are a smoker, we strongly recommend that you quit.If you are not a smoker, we strongly recommend that you do not start. The artifical lens implant in your right eye appearsto be stable. Since this is the first day after surgery, your right eye is still dilated and the vision will still be slightly blurry. The dilation will go down over the next day or two. Continue taking your eye drops as directed on the surgical calendar. If you have any questions, please call [facility]. Functional Status Description No Information Available Mental Status Description No Information Available Referrals Description No Information Available
--- OUTSIDE RECORDS SUMMARY | 2020-01-08 15:07 | XMS REPORT | Continuity of Care Document ---
:1940 External Reference #:[id number] Author Name Andres Bess M.D. (transmitted by agent of provider Laura Solomon) Address [address] [place] [address] Care Team Providers Name Role Phone Octavio Mckeon M.D. - Family Medicine Care Team Information Imaging Science Professor Babita Fernandez O.D. - Director Of Coding Care Team Information Imaging Science Professor Problems Active Problems Provider Date Arthritis Onset: [...] Indications Ordering Date Provider Artificial Tears Andres Bses, 12/28/2019 1-0.3% M.D. Solution Ciprofloxacin HCL instill [...] Available Procedures Date Code Description Status 12/28/2019 63936 Extracapsular Cataract Extraction W/Intraocular Lens Completed 12/26/2019 89090 Ophthalmic Biometry Completed 12/26/2019 27859 Ophthalmic Biometry Completed 12/26/2019 86294 Est Patient Intermediate Exam Completed 12/22/2019 57381 New Patient Comprehensive Exam Completed Medical Devices Description No Information Available Encounters Description No Information Available Assessments Date Code Description Provider 01/05/2020 Z96.1 Presence of intraocular lens Andres Bess M.D. 12/29/2019 H25.811 Combined forms of age-related cataract, [...]
--- OUTSIDE RECORDS SUMMARY | 2020-01-08 15:07 | XMS REPORT | Continuity of Care Document ---
:1940 External Reference #:[id number] Author Name Andres Bess M.D. (transmitted by agent of provider Karina Parry) Address [address] [place] [address] Care Team Providers Name Role Phone Octavio Mckeon M.D. - Family Medicine Care Team Information Reservation Sales Agent Babita Fernandez O.D. - Icicle Machine Operator Care Team Information Reservation Sales Agent [phone] Problems Active Problems Provider Date Arthritis Onset: [...] Available Procedures Date Code Description Status 12/28/2019 71709 Extracapsular Cataract Extraction W/Intraocular Lens Completed 12/26/2019 65674 Ophthalmic Biometry Completed 12/26/2019 70625 Ophthalmic Biometry Completed 12/26/2019 00083 Est Patient Intermediate Exam Completed 12/22/2019 74943 New Patient Comprehensive Exam Completed Medical Devices [...]
--- OUTSIDE RECORDS SUMMARY | 2020-01-08 15:07 | XMS REPORT | Continuity of Care Document ---
:1940 External Reference #:[id number] Author Name Andres Bess M.D. Address [address] [place] [address] Care Team Providers Name Role Phone Octavio Mckeon M.D. - Family Medicine Care Team Information Manager Presentation Babita Fernandez O.D. - Instrument Repairer Care Team Information Manager Presentation Problems Active Problems Provider Date Arthritis Onset: Chronic kidney disease stage 4 Onset: Combined form of senile cataract Andres Bess M.D. Onset: 12/22/2019 Social History Type Date Description Comments Sex Unknown ETOH Use Denies alcohol use Tobacco Use Start: Unknown Patient has never smoked Recreational Drug Use Denies Drug Use Smoking Status Reviewed: 12/22/19 Patient has never smoked Allergies, Adverse Reactions, Alerts Active Allergies Reaction Severity Comments Date Demerol Nausea, Vomitting Severe 12/22/2019 Cat Dander Severe 12/22/2019 Quinine Dizziness, Nausea, Vomitting Severe 12/22/2019 Medications Active Medications SIG Qnty Indications Ordering Provider Date Oxycodone-Acetaminophen Unknown 5-325mg Tablets Prochlorperazine Maleate Take One Tablet Unknown 5mg By Mouth Three Tablets Times A Day as Needed For Nausea Immunizations Description No Information Available Vital Signs Description No Information Available Results Description No Information Available Procedures Description No Information Available Medical Devices Description No Information Available Encounters Description No Information Available Assessments Date Code Description Provider 12/22/2019 H25.813 Combined forms of age-related cataract, Andres Bess M.D. bilateral Plan of Treatment 12/22/2019 - Andres Bess M.D.H25.813 Combined forms of age-related cataract , bilateralComments:Smoking can increase the risk of developing or worsening any eye related disease, as well as affect your overall health. If you are a smoker, we strongly recommend that you quit.If you are not a smoker, we strongly recommend that you do not start. You have been diagnosed with cataracts. They are limiting your vision, and I am unable to improve you with new glasses. Our next step is to schedule Cataract surgery and all necessary appointments, which Isaura will do for you. We recommend that you write down any questions you may have and bring them to your preoperative appointment so that Dr. Meadows answer them for you. If you have any questions or concerns, you can reach Isaura or [place] at .Follow up:For preop exam before surgery. Functional Status Description No Information Available Mental Status Description No Information Available Referrals Description No Information Available
--- NOTE | 2020-01-08 15:12 | ED ---
Complex/Multi-Sys Presentation - HPI Summary HPI Summary: 79-year-old female with a significant past medical history of Crohn's disease status post colectomy with ostomy in place presents to the emergency Department chief complaint of feeling dehydrated. Patient states she feels fatigued and weak however she otherwise feels well with no complaints. Pt denies vomiting, nausea, diarrhea, and states she has good PO intake of fluids. Patient denies fever, cough, chest pain, abdominal pain, pain with urination, rash, nausea, vomiting and diarrhea. - History Of Current Complaint Time Seen by Provider: 01/08/20 14:48 Hx Obtained From: Patient Onset/Duration: Gradual Onset Timing: Constant Severity Currently: Moderate Severity Initially: Moderate Associated Signs And Symptoms: Positive: Weakness. Negative: Vomiting, Diarrhea , Abdominal Pain, Fever - Allergies/Home Medications Allergies/Adverse Reactions: Allergies Allergy/AdvReac Type Severity Reaction Status Date / Time latex Allergy Rash Verified 01/08/20 15:01 meperidine [From Demerol] Allergy Vomiting Verified 01/08/20 15:01 Sulfa (Sulfonamide AdvReac Mild Nausea Verified 01/08/20 15:01 Antibiotics) metronidazole [From Flagyl] AdvReac Nausea Verified 01/08/20 15:01 quinine AdvReac Nausea And Verified 01/08/20 15:01 Vomiting Home Medications: Home Medications oxyCODONE/Acetamin 5/325 MG* [Percocet 5/325 TAB*] 1 tab PO ONCE PRN 04/13/19 [ History Confirmed 01/08/20] Prochlorperazine 5 mg TAB [Compazine 5 mg TAB] 5 mg PO Q6H PRN #20 tab 09/24/19 [Rx Confirmed 01/08/20] Sodium Bicarbonate (ANTACID)* 1,300 mg PO TID #30 tab 01/08/20 [Rx] PMH/Surg Hx/FS Hx/Imm Hx Endocrine/Hematology History: Reports: Hx Anemia - HX OF-PT REPORTS SLIGHT ANEMIA-NO IRON SUPPLEMENTS Denies: Hx Bone Marrow Disease, Hx Sickle Cell Disease Cardiovascular History: Denies: Hx Pacemaker/ICD, Hx Peripheral Vascular Disease, Hx Rheumatic Fever , Other Cardiovascular Problems/Disorders Respiratory History: Denies: Hx Asthma, Hx Pulmonary Edema, Hx Pulmonary Embolism, Hx Sleep Apnea , Other Respiratory Problems/Disorders GI History: Reports: Hx Crohn's Disease - HX OF-PT REPORTS COLON RESECTION, Hx Irritable Bowel - HX OF-PT REPORTS COLON RESECTION, Hx Ileostomy - iliostomy, Other GI Disorders - HX OF-ILEOSTOMY ON LEFT SIDE CURRENTLY, COLON RESECTION X3 History: Reports: Hx Chronic Renal Failure, Hx Kidney Infection, Other Problems/Disorders - HX OF-PT REPORTS UTI-NONE SINCE BOWEL RESECTION Musculoskeletal History: Reports: Hx Arthritis - HX OF-PT REPORTS BILATERAL HANDS AND ANKLES Denies: Hx Bursitis, Hx Tendonitis, Other Musculoskeletal History Sensory History: Reports: Hx Cataracts - CURRENTLY, Hx Contacts or Glasses - GLASSES Denies: Hx Glaucoma, Hx Hearing Aid Opthamlomology History: Reports: Hx Cataracts - CURRENTLY, Hx Contacts or Glasses - GLASSES Denies: Hx Glaucoma Neurological History: Reports: Other Neuro Impairments/Disorders - HX OF-PT REPORTS VERTIGO-LAST EPISODE ONE MONTH AGO Denies: Hx Nerve Disease Psychiatric History: Denies: Hx Anxiety, Hx Depression, Hx Panic Disorder - Cancer History Hx Chemotherapy: No - Surgical History Surgery Procedure, Year, and Place: [place] [place] BREAST CYST [id number]. CHOLECYSTECTOMY-AGE 22[place]. ABDOMINAL HERNIA REPAIR- 2013[place]. T&A- A CHILD-[place]. COLON RESECTIONs W/ANAL REMOVAL X 3[place]1998- [place] [place] Anesthesia Reactions: No Infectious Disease History: Denies: Hx Clostridium Difficile, Hx Hepatitis, Hx Human Immunodeficiency Virus (HIV), Hx of Known/Suspected MRSA, Hx Shingles, Hx Tuberculosis, Hx Known/ Suspected VRE, Hx Known/Suspected VRSA, History Other Infectious Disease, Traveled Outside the [place] in Last 30 Days - Family History Known Family History: Positive: Hypertension Negative: Cardiac Disease, Diabetes - Social History Alcohol Use: None Alcohol Amount: hx alcoholism - reports last drink 2014 Hx Substance Use: No Substance Use Type: Reports: Prescribed Substance Use Comment - Amount & Last Used: OXYCODONE Hx Tobacco Use: No Smoking Status (MU): Never Smoked Tobacco Have You Smoked in the Last Year: No Review of Systems Positive: Fatigue. Negative: Fever Eyes: Negative ENT: Negative Respiratory: Negative Gastrointestinal: Negative Negative: Abdominal Pain, Vomiting, Diarrhea, Nausea Genitourinary: Negative Musculoskeletal: Negative Skin: Negative Neurological/Mental Status: Negative Psychological: Normal All Other Systems Reviewed And Are Negative: Yes Physical Exam Triage Information Reviewed: Yes Vital Signs Reviewed: Yes Appearance: Positive: Well-Appearing, No Pain Distress, Well-Nourished Skin: Positive: Warm, Skin Color Reflects Adequate Perfusion Eyes: Positive: EOMI, KIKO ENT: Positive: Hearing grossly normal Respiratory/Lung Sounds: Positive: Clear to Auscultation, Breath Sounds Present Cardiovascular: Positive: RRR, S1, S2 Abdomen Description: Positive: Nontender, Soft. Negative: Distended, Guarding Bowel Sounds: Positive: Present Musculoskeletal: Positive: Strength/ROM Intact Neurological: Positive: Sensory/Motor Intact, Alert, Oriented to Person Place, Time, Normal Gait, Facial Symmetry, Speech Normal Psychiatric: Positive: Normal, Affect/Mood Appropriate AVPU Assessment: Alert Procedures - Sedation Patient Received Moderate/Deep Sedation with Procedure: No Diagnostics - Laboratory Result Diagrams: 01/08/20 15:23 01/08/20 15:23 Lab Statement: Any lab studies that have been ordered have been reviewed, and results considered in the medical decision making process. Complex Multi-Symp Course/Dx Course Of Treatment: Patient was evaluated in the emergency department today for possible dehydration. Vitals noted and stable. Physical exam is consistent with mild dehydration. Patient was given IV fluids and by mouth fluids. Laboratory studies returned showing mild leukocytosis with a white blood cell count of 11.0. There is mild hyperkalemia with potassium of 5.8. There are no other significant electrolyte abnormalities. Urinalysis negative for UTI or proteinuria. BUN 69, creatinine 4.5. These are mildly elevated from her baseline but not considered significant. Carbon dioxide returned at 14. Anion gap of 12. VBG returned showing metabolic acidosis with a pH of 7.24. Patient appeared to be expressing no significant medical pathology at this time other than metabolic ACIDOSIS secondary to chronic kidney disease. [employer], was consulted who agreed that the patients renal function was not significant change from her baseline however he did believe due to her metabolic acidosis the patient should begin on sodium bicarbonate. Patient was given one dose of sodium bicarbonate 1300 mg in the emergency department and given a prescription to take sodium bicarbonate as an outpatient. Patient discharged with outpatient follow-up with Dr. Rivera, her program professional for consideration of starting her on dialysis. - Diagnoses Differential Diagnoses/HQI/PQRI: Metabolic Abnormality, Other - dehydration Provider Diagnoses: Dehydration, Metabolic acidosis, Hyperkalemia, Weakness Discharge ED - Sign-Out/Discharge Documenting (check all that apply): Patient Departure - Discharge Plan Condition: Stable Disposition: HOME Prescriptions: Sodium Bicarbonate (ANTACID)* 1,300 mg PO TID #30 tab Patient Education Materials: Dehydration (ED) Referrals: Octavio Mckeon MD [Primary Care Provider] - Soumya Rivera MD [Medical Doctor] - 3 Days Additional Instructions: Please take sodium bicarbonate 1300 mg 3 times a day. Please follow-up with your program professional in 3 days for further evaluation and management. Please return to this emergency Department immediately if you develop any new or worsening symptoms. Please be sure to increase oral intake of fluids as were mildly dehydrated today in the emergency department. - Billing Disposition and Condition Condition: STABLE Disposition: Home - Attestation Statements Provider Attestation: I was available for consultation for this patient. I did not evaluate the patient or participate in any medical decision making or disposition decisions unless I am specifically named in the chart as having consulted on the patient. If I have consulted on the patient, please see my own ED note on the patient encounter. Naomy Flores MD
[2020-01-08 15:34] LABS: ABS Basophils 0.1 10^3/ul (0-0.2); ABS Eosinophils 0.1 10^3/ul (0-0.6); ABS Lymphocytes 1.4 10^3/ul (1.0-4.8); ABS Monocytes 0.5 10^3/ul (0-0.8); ABS Neutrophils 8.9 10^3/ul (1.5-7.7); Eosinophil % 1.2 %; Hematocrit 35 % (35-47); Hemoglobin 11.8 g/dL (12.0-16.0); Lymphocyte % 12.3 %; Mean Corpuscular HGB Conc 34 g/dL (31-36); Mean Corpuscular Hemoglobin 31 pg (27-31); Mean Corpuscular Volume 89 fL (80-97); Mean Platelet Volume 7.3 fL (7.4-10.4); Platelet Count 335 10^3/uL (150-450); Red Blood Count 3.86 10^6 /uL (3.70-4.87); Red Cell Distribution Width 15 % (10-15)
[2020-01-08 15:50] LABS: Albumin 4.2 g/dL (3.2-5.2); Albumin/Globulin Ratio 1.2 (1-3); BUN/Creatinine Ratio 15.3 (8-20); Calcium 8.5 mg/dL (8.6-10.3); EGFR African American 11.5 (>60); EGFR Non-African American 9.5 (>60); Globulin 3.4 g/dL (2-4); Magnesium 1.5 mg/dL (1.9-2.7); Total Bilirubin 0.4 mg/dL (0.2-1.0); Total Protein 7.6 g/dL (6.4-8.9)
[2020-01-08 15:54] LABS: Potassium 5.8 mmol/L (3.5-5.0)
[2020-01-08 17:05] LABS: Urine Appearance Cloudy; Urine Bilirubin Negative (Negative); Urine Blood Negative (Negative); Urine Color Yellow; Urine Glucose Negative (Negative); Urine Ketones Negative (Negative); Urine Nitrite Negative (Negative); Urine Protein Negative (Negative); Urine Specific Gravity 1.012 (1.010-1.030); Urine Urobilinogen Negative (Negative)
[2020-01-08 17:06] LABS: Urine Bacteria 1+ (Absent); Urine Red Blood Cell 1+(3-5/hpf) (Absent); Urine Squamous Epithelial Cell Present (Absent); Urine Transitional Epithelial Present (Absent); Urine White Blood Cell 3+(>20/hpf) (Absent)
[2020-01-08] MEDS ORDERED: Sodium Bicarbonate (ANTACID)* 650 MG TAB PO ONE (17:25)
[2020-01-08 18:59] VITALS: BP 138/86
== END 2020-01-08 19:01 | disposition home or self-care (01) ==
LOC: ED 14:46
DX: E86.0 Dehydration (principal); E87.2 Acidosis; E87.5 Hyperkalemia; Z93.3 Colostomy status; D63.1 Anemia in chronic kidney disease; K50.90 Crohn's disease, unspecified, without complications; N18.9 Chronic kidney disease, unspecified; Z90.49 Acquired absence of other specified parts of digestive tract; Z88.1 Allergy status to other antibiotic agents; Z88.2 Allergy status to sulfonamides; Z88.5 Allergy status to narcotic agent; Z88.8 Allergy status to other drugs, medicaments and biological substances; Z91.040 Latex allergy status
CPT/HCPCS: 36415; 80053; 81003; 81015; 82803; 83735; 85025; 87086; 96360; 99283; A9270-GY

== ENCOUNTER 2020-01-30 05:41 | Day surgery (SDC) | payer MEDICARE, MEDICAID ==
--- NOTE | 2020-01-27 03:43 | HP ---
HISTORY AND PHYSICAL: DATE OF ADMISSION: 01/30/20 CHIEF COMPLAINT: Occluded dialysis graft, left arm. HISTORY OF PRESENT ILLNESS: The patient is a 79-year-old female with end-stage renal disease specifically stage 4, who underwent a placement of loop graft hemodialysis on the left arm in 2018 and it has been patent until recently when the graft occluded. The patient does not remember when it exactly happened, but it was noticed on a routine physical examination. PAST MEDICAL HISTORY: The patient's past medical history is remarkable for end - stage chronic kidney disease, specifically stage 4. The patient's past medical history other than that is essentially unremarkable. PAST SURGICAL HISTORY: Remarkable for loop dialysis [place]-Demetris graft left arm in 2018, history of appendectomy, gallbladder surgery, and small bowel resection for Crohn's disease, and history of hernia repair. CURRENT MEDICATIONS: Include: 1. Oxycodone and acetaminophen 5/325 1 tablet p.o. q.4 hours as needed. 2. Tramadol 50 mg tablet p.o. q.h.s. as needed. ALLERGIES: The patient is allergic to DEMEROL, FLAGYL, LATEX, and QUININE. FAMILY HISTORY: Remarkable for father with hypertension; he of congestive heart failure. Mother history of cancer. One sister history of breast cancer. SOCIAL HISTORY: The patient is retired. Denies any history of smoking or alcohol. REVIEW OF SYSTEMS: Gastrointestinal: History of Crohn's disease. Renal: History of progressive chronic kidney disease. Denies diabetes and hypertension. PHYSICAL EXAMINATION VITAL SIGNS: Height is 62.5 inches, weight 132 pounds, blood pressure 120/71, BMI of 23, pulse of 90, respirations 18. HEAD AND NECK: Reveals no neck nodes or masses. LUNGS: Clear to auscultation bilaterally. HEART: Regular without murmurs. EXTREMITIES: The patient has excellent pulses bilaterally in both upper extremities. There is a left graft in the forearm, this appears to be occluded. There is no bruit, no pulsation. She has distal pulses palpable at the brachial, radials and ulnar. In the lower extremities, the patient has palpable pulses distally, no evidence of ankle edema. DIAGNOSTIC STUDIES: A duplex scan performed on the graft reveals complete occlusion of the graft. There is a 5 mm diameter basilic vein on the left arm. No cephalic vein is noted. The basilic vein can potentially be used for a 2- stage basilic vein transposition if the graft cannot be completely declotted. IMPRESSION: Diagnostic impression is that of occluded left forearm brachial graft. The plan is to proceed with thrombectomy, possible balloon angioplasty. If it is not possible to reopen, then consider another access, either a 2-stage basilic vein transposition on the left arm or a loop graft in the left arm. The patient understands and agrees with the plan of care. She understands that the potential complications include, but not exclusive of others such as thrombosis, bleeding, infection, etc. The patient understands, agrees, and wishes to proceed. [id number]/CPS #: [id number] MTDD
[~2020-01-30 05:41] MED LIST changes: -Acetaminophen TAB* 325 MG PO PRN; +Lactated Ringers 1000 ML Bag* 1,000 ML IV SCH
[2020-01-30] MEDS ORDERED: NS 0.45% 1000 ML BAG* 1,000 ML IV SCH (06:00)
[2020-01-30] MEDS ORDERED: fentaNYL* 50 MCG/ML 2 ML VIAL (100 MCG VIAL) IV PRN (06:02)
[2020-01-30] MEDS ORDERED: PROCHLORPERAZINE INJ 5 MG/ML 2 ML VIAL IV PRN (06:02)
[2020-01-30] MEDS ORDERED: HYDROmorphone INJ1* 1 MG/ML SYRINGE IV PRN (06:02)
[2020-01-30] MEDS ORDERED: Ondansetron INJ* 2 MG/ML VIAL IV PRN (06:02)
[2020-01-30] MEDS ORDERED: oxyCODONE TAB* 5 MG TAB PO PRN (06:02)
[2020-01-30] MEDS ORDERED: Naloxone* 0.4 MG/ML 1 ML VIAL IV PRN (06:02)
[2020-01-30] MEDS ORDERED: Buffered Lidocaine 1% SYRIN* 1 ML/SYRINGE INTRADERM ONE (06:18)
[2020-01-30] MEDS ORDERED: Heparin VIAL(*) 5000 UNITS/ML VIAL (FIVE THOUSAND) ONE (07:20)
[2020-01-30] MEDS ORDERED: Bupivacaine 0.25% SDV* 30 ML ONE (07:20)
[2020-01-30] MEDS ORDERED: Lidocaine 1% INJ* 10 MG/ML 30 ML SDV ONE (07:20)
[2020-01-30] MEDS ORDERED: Heparin 2 UNITS/ML IVPREMIX* 1,000 ML IV ONE (07:20)
[2020-01-30] MEDS ORDERED: ceFAZolin 2 GM PREMIX in ORs 2 GM/50 ML BAG ONE (07:22)
[2020-01-30] MEDS ORDERED: Midazolam* 1 MG/ML 5 ML VIAL (5 MG) ONE (07:36)
[2020-01-30] MEDS ORDERED: fentaNYL* 50 MCG/ML 5 ML VIAL (250 MCG VIAL) ONE (07:42)
[2020-01-30] MEDS ORDERED: Propofol* 10 MG/ML 20 ML BTL ONE (10:09)
[2020-01-30] MEDS ORDERED: EPHEDrine (Pressors)* 50 MG/ML VIAL ONE (10:09)
[2020-01-30] MEDS ORDERED: Lidocaine 2% PF * 5 ML VIAL ONE (10:10)
[2020-01-30] MEDS ORDERED: Phenylephrine 10 MG/ML VIAL* 1 ML VIAL ONE (10:10)
--- NOTE | 2020-01-30 11:14 | OP ---
OPERATIVE REPORT: DATE OF OPERATION: 01/30/20 - [facility] DATE OF : 44 SURGEON: Aubrey Bronson MD ANESTHESIA: Local plus MAC. PRE-OP DIAGNOSIS: Thrombosed left forearm loop graft. POST-OP DIAGNOSIS: Thrombosed left forearm loop graft. OPERATIVE PROCEDURE: 1. Thrombectomy, left forearm AV graft. 2. On-table angiogram. 3. Placement of new loop brachial AV graft of the left arm. ESTIMATED BLOOD LOSS: Approximately 20 cc. INDICATIONS FOR THE PROCEDURE: The patient is a 79-year-old female with end- stage renal disease that has had a forearm AV graft on the left arm for approximately 2 years. She was found to have it thrombosed, and for this reason , she was referred for evaluation and thrombectomy; however, it appeared that the graft had been thrombosed for some time. It was explained to the patient that we would proceed with thrombectomy, angiography, possible new graft if it was not patent. DESCRIPTION OF PROCEDURE: The patient was taken to the operating room. She underwent proper identification of patient and site of surgery. She received preoperative antibiotics. She was placed in a supine position. She was prepped and draped in the usual sterile fashion. After appropriate time-out, lidocaine 1% was used to infiltrate on the left forearm at the end of the loop graft. A 1.5 cm incision was performed. The incision was carried down through the skin and subcutaneous tissue with an #11 blade. The [place]-Demetris graft was identified encircled in vessel loops and opened. After this was done, we then proceeded to advance a Jeannie #4 embolectomy catheter, which would not advance past the anastomosis either arterial or venous. We deemed that this was likely completely thrombosed. We proceeded to confirm this with an angiogram and the angiogram on the arterial side showed a complete occlusion not amenable to angioplasty, and on the venous side, there was a to a small cephalic vein, which was deemed not amenable to salvage. It was felt that this graft was not salvageable, and for this reason, we then proceeded to place a new graft. On the medial aspect of the arm, approximately 5 cm under the axillary line, an oblique incision was performed. The incision was carried down through the skin and subcutaneous tissue. Bleeders were controlled by electrocoagulation. We proceeded to identify the neurovascular bundle and identified the brachial vein, which was then encircled in vessel loops, and the brachial artery, which was encircled in the vessel loops. Care was taken to avoid touching or disturbing the meeting nerve. After this was done, we then proceed to infiltrate lidocaine 1% in a loop fashion after measuring the proper size of the graft, and once we infiltrated the subcutaneous tissue in the loop fashion, we proceeded to create a tunnel with a [place] tunneler under the skin. A counter incision was made more distal right above the elbow crease, and after this was done, we proceeded to advance via the tunneler the Propaten taper 4-6 mm [place] Demetris graft, which was then introduced via the tunneler and pulled out in the other direction, both ends of the tunnel lying easily without tension. The graft was irrigated with heparinized saline. We then proceeded to give the patient 3500 units of heparin, and after this was done, we proceeded to cross- clamp the brachial vein proximally and distally. The graft was fashioned in such a way that it will be outside venous limb and inside arterial limb. After the cross-clamp was done on the brachial vein, a venotomy was done with #11 blade and extended with Szymanski scissors. We then proceeded to spatulate the 6 mm end of the [place]-Demetris and proceeded to perform an end-to-side anastomosis using 6-0 Prolene in a parachute technique. After this was completed, we proceeded to release the venous clamps and irrigate it via the graft with heparinized saline with good flow into the vein. After this was done, we proceeded to cross-clamp the graft itself and proceeded to perform the arterial anastomosis, cross-clamping the brachial artery distally, then proximally, performing an arteriotomy with an #11 blade and extending it with Szymanski scissors. The 4 mm end of the graft was spatulated and fashioned to fit the arteriotomy and an end-to-side anastomosis using 6-0 Prolene in a parachute technique was used to perform the anastomosis. After this was done, the venous cross-clamp was released, then the arterial cross-clamp, and flow was established into the graft. Minor bleeders from the anastomosis were controlled with interrupted sutures in this area. At the end of the procedure, there was no active bleeding. Minor bleeders on the surface were controlled by electrocoagulation, and after this was done, once the field was dry, we then proceeded to close all the artery incisions, first with subcutaneous tissue using 4-0 Vicryl suture and then the skin with subcuticular 5-0 Monocryl. At the end of the procedure, there was excellent flow into the vein and the graft. This was confirmed by palpation and Doppler. Also, the patient had excellent palpable radial pulse. The patient tolerated the procedure well and she was taken in good condition to the recovery room. [id number]/CPS #: [id number] MTDJulia
[2020-01-30 11:48] VITALS: BP 120/64
== END 2020-01-30 11:38 | disposition home or self-care (01) ==
LOC: OR 05:41
PROVIDERS: ATTEND Surgery
DX: T82.868A Thrombosis due to vascular prosthetic devices, implants and grafts, initial encounter (principal); N18.6 End stage renal disease; Z99.2 Dependence on renal dialysis
CPT/HCPCS: 36415; 76000; C1768; J0690; J1644; J2250; J2704; J3010; J3490